=== PATIENT | female | born 1935 | race Caucasian/White ===

== ENCOUNTER 2020-01-15 10:25 | Outpatient (CLI) | payer MEDICARE, OTHER ==
--- NOTE | 2020-01-16 08:54 | Mammography Report ---
BILATERAL DIGITAL SCREENING MAMMOGRAM 3D/2D: 01/15/2020 CLINICAL: Routine screening. Comparison is made to exams dated: 08/22/2018 mammogram - [facility], 08/13 mammogram, 10/31/2017 mammogram, and 11/30/2016 mammogram - [facility]. The tissue of both b reasts is predominantly fatty. There is a focal asymmetry in the right breast central to the nipple middle depth. No other significant masses, calcifications, or other findings are seen in either breast. IMPRESSION: INCOMPLETE: NEEDS ADDITIONAL IMAGING EVALUATION The focal asymmetry in the right breast is indeterminate. Additional views with possible ultrasound are recommended. This exam was interpreted at Station ID: [id number]. NOTE: For mammograms, a report in lay terms will be sent to the patient. Approximately 15% of breast malignancies will not be visualized mammographically. In the management of a palpable breast mass, a negative mammogram must not discourage biopsy of a clinically suspicious lesion. Electronically Signed By: Neah Kam M.D. lk/:01/15/2020 17:00:42 ACR BI-RADS Category 0: Incomplete 3340F PARENCHYMAL PATTERN: (F) - The breast(s) demonstrate(s) diffuse fatty replacement. BI-RADS CATEGORY: (0) - 0 Mammo and [place] [id number] Immediate follow-up LATERALITY: (B)
== END 2020-01-15 10:26 | disposition home or self-care (01) ==
LOC: DI 10:25
DX: Z12.31 Encounter for screening mammogram for malignant neoplasm of breast (principal); R92.8 Other abnormal and inconclusive findings on diagnostic imaging of breast
CPT/HCPCS: 77063; 77067

== ENCOUNTER 2020-03-03 10:01 | Outpatient (CLI) | payer MEDICARE, OTHER ==
--- NOTE | 2020-03-04 12:37 | Mammography Report ---
UNILATERAL RIGHT DIGITAL DIAGNOSTIC MAMMOGRAM 3D/2D: 03/03/2020 CLINICAL: Patient returns today to evaluate a focal asymmetry in the right breast. Comparison is made to exams dated: 01/15/2020 mammogram - [facility], 08/22/2018 mamm ogram - [facility], 08/13/2018 mammogram, 10/31/2017 mammogram, 11/30/2016 ma mmogram, and 11/11/2015 mammogram - [facility]. The tissue of right breast is predominantly fatty. The previously described focal asymmetry in the right breast central to the nipple middle depth is no longer seen in additional views. This is consistent with summation artifact. No other significant masses or calcifications are seen in the breast. IMPRESSION: BENIGN The previously described asymmetry disperses with additional views and is consistent with summation a rtifact. There is no mammographic evidence of malignancy. A 1 year screening mammogram is recommended. Findings and recommendations were conveyed to the patient during today's examination. This exam was interpreted at Station ID: [id number]. NOTE: For mammograms, a report in lay terms will be sent to the patient. Approximately 15% of breast malignancies will not be visualized mammographically. In the management of a palpable breast mass, a negative mammogram must not discourage biopsy of a clinically suspicious lesion. Electronically Signed By: Aayush Schneider M.D. aty/:03/03/2020 11:07:56 ACR BI-RADS Category 2: Benign Finding(s) 3342F PARENCHYMAL PATTERN: (F) - The breast(s) demonstrate(s) diffuse fatty replacement. BI-RADS CATEGORY: (2) - 2 RECOMMENDATION: (ANNUAL) - Recommend routine annual screening mammography. [id number] 1 year screening LATERALITY: (B)
== END 2020-03-03 10:02 | disposition home or self-care (01) ==
LOC: DI 10:01
PROVIDERS: ATTEND Family Medicine
DX: R92.8 Other abnormal and inconclusive findings on diagnostic imaging of breast (principal)

== ENCOUNTER 2020-08-19 08:42 | Outpatient (CLI) | payer MEDICARE, OTHER ==
--- NOTE | 2020-08-19 11:56 | CT Report ---
PROCEDURE: LOWER EXTREMITY WO - RT INDICATIONS: RT HEEL PAIN TECHNIQUE: Noncontrast 3 mm axial sections acquired of the right ankle and foot, with coronal and sagittal refor mats. COMPARISON: None. FINDINGS: Image quality: Excellent. Bones: Mild osteoarthritic changes are noted throughout hindfoot and midfoot joints. Well-defined pl cherelle and dorsal calcaneal enthesophytes are seen. No fracture or dislocation. No suspicious intraoss eous lesion. Subcortical cyst formation versus chronic erosion involving plantar aspect of fourth met atarsal base is seen. Soft tissues: Markedly thickened plantar aponeurosis at its insertion of plantar calcaneus is seen w ith surrounding soft tissue swelling and edema. Achilles tendon is intact. Extensor, flexor, peroneus tendons are grossly intact. No abnormal soft tissue calcifications are seen. IMPRESSION: 1. Thickened plantar fascia near its insertion of plantar calcaneus with well-defined plantar and gary manas calcaneal enthesophytes. Finding is concerning for moderate plantar fasciitis. 2. Achilles tendon is intact. Extensor, flexor, and peroneus tendons are grossly intact. 3. Mild midfoot and hindfoot joint osteoarthritis. No fracture or dislocation. Nonspecific subcortica l cyst formation and plantar aspect of fourth metatarsal base. Erosion secondary to inflammatory arth ropathy cannot be excluded. No significant joint effusion. No abnormal soft tissue calcification. Reviewed by: Jordi Arciniega MD on 08/19/2020 11:54 AM PST Approved by: Jordi Arciniega MD on 08/19/2020 11:54 AM PST Station ID: [id number]
== END 2020-08-19 08:43 | disposition home or self-care (01) ==
LOC: DI 08:42
PROVIDERS: ATTEND Internal Medicine
DX: M77.31 Calcaneal spur, right foot (principal); M19.071 Primary osteoarthritis, right ankle and foot; N64.4 Mastodynia

== ENCOUNTER 2020-08-19 08:43 | Outpatient (CLI) | payer MEDICARE, OTHER ==
--- NOTE | 2020-08-20 09:47 | Mammography Report ---
UNILATERAL LEFT DIGITAL DIAGNOSTIC MAMMOGRAM 3D/2D: 08/19/2020 CLINICAL: Diffuse left breast pain. Comparison is made to exams dated: 03/03/2020 mammogram, 01/15/2020 mammogram - [facility], 08/22/2018 mammogram, 08/22/2018 ultrasound - [facility], 08/13/2018 u ltrasound, and 08/13/2018 mammogram - [facility]. There are scattered fibroglandular elements in l eft breast. No significant masses, calcifications, or other findings are seen in the breast. Specifically, no fi nding to explain the patient's diffuse left breast pain. There is a biopsy clip in the left breast at 2 o'clock in the middle depth. IMPRESSION: NEGATIVE There is no abnormality seen in the left breast to correspond with the pain. There is no mammographic evidence of malignancy. Future imaging is recommended as follows: 01/15/2021 screening mammogram. Findings and recommendations were conveyed to the patient at time of exam. This exam was interpreted at Station ID: [id number]. NOTE: For mammograms, a report in lay terms will be sent to the patient. Approximately 15% of breast malignancies will not be visualized mammographically. In the management of a palpable breast mass, a negative mammogram must not discourage biopsy of a clinically suspicious lesion. Electronically Signed By: Josie dhillon/:08/19/2020 10:12:33 ACR BI-RADS Category 1: Negative 3341F PARENCHYMAL PATTERN: (A) - The breast(s) demonstrate(s) scattered fibroglandular densities. BI-RADS CATEGORY: (1) - 1 Mammogram 20210115 return to screening LATERALITY: (B)
== END 2020-08-19 08:44 | disposition home or self-care (01) ==
LOC: DI 08:43
PROVIDERS: ATTEND Internal Medicine
DX: N64.4 Mastodynia (principal)

== ENCOUNTER 2020-08-30 20:37 | Outpatient (CLI) | payer MEDICARE, OTHER | END 2020-08-30 20:38 | disposition short-term general hospital (02) | LOC: EMS 20:37 | DX: R07.9 Chest pain, unspecified (principal) | CPT/HCPCS: A0425; A0429 ==

== ENCOUNTER 2021-04-24 12:45 | Outpatient (CLI) | payer MEDICARE, OTHER ==
--- NOTE | 2021-04-24 14:47 | Ultrasound Report ---
PROCEDURE: Ext Limited Non Vascular INDICATIONS: LUMP NEAR BICEP TECHNIQUE: Real-time scanning was performed of the , with image documentation. COMPARISON: None. FINDINGS/IMPRESSION: Underlying area of concern within the subcutaneous soft tissues of the right arm is an ovoid avascular echogenic mass within the adjacent fat measuring 1.3 x 0.8 x 1.2 cm. The appea charlene favors a fat containing lesion, likely a lipoma. Reviewed by: Sridhar Burnham DO on 04/24/2021 1:46 PM [place] Approved by: Sridhar Burnham DO on 04/24/2021 1:46 PM [place] Station ID: [id number]
== END 2021-04-24 12:46 | disposition home or self-care (01) ==
LOC: DI 12:45
PROVIDERS: ATTEND Internal Medicine
DX: R22.31 Localized swelling, mass and lump, right upper limb (principal)

== ENCOUNTER 2021-06-01 10:48 | Outpatient (CLI) | payer MEDICARE, OTHER ==
--- NOTE | 2021-06-01 15:02 | XRAY Report ---
PROCEDURE: Humerus RT INDICATIONS: R SHOULDER PX TECHNIQUE: 2 views of the humerus were acquired. COMPARISON: None FINDINGS: Bones: No fractures or dislocations. Moderate acromioclavicular joint and glenohumeral joint osteoa rthritic changes are seen. No suspicious bony lesions. Soft tissues: No suspicious soft tissue calcifications. IMPRESSION: Right shoulder joint osteoarthritis. No right humeral fracture or dislocation. Reviewed by: Jordi Arciniega MD on 06/01/2021 3:01 PM [facility] Approved by: Jordi Arciniega MD on 06/01/2021 3:01 PM PST Station ID: [id number]
--- NOTE | 2021-06-01 15:18 | XRAY Report ---
PROCEDURE: Shoulder 3 View RT INDICATIONS: R SHOULDER PX TECHNIQUE: 3 views of the shoulder were acquired. COMPARISON: None. FINDINGS: No acute fracture. There is severe AC joint degeneration, with intra-articular dystrophic ossificatio n's. Scattered subchondral sclerosis and spurring. Mild glenohumeral joint degeneration. IMPRESSION: Right shoulder joint degeneration. If the patient's pain or other symptoms persist, cons ider further evaluation with MRI. Reviewed by: Lazaro Peck MD on 06/01/2021 3:17 PM PST Approved by: Lazaro Peck MD on 06/01/2021 3:17 PM PST Station ID: [id number]
== END 2021-06-01 23:59 | disposition home or self-care (01) ==
LOC: DI.N 10:48
PROVIDERS: ATTEND Orthopaedic Surgery
DX: M19.011 Primary osteoarthritis, right shoulder (principal)

== ENCOUNTER 2021-08-11 12:17 | Outpatient (CLI) | payer MEDICARE, OTHER ==
--- NOTE | 2021-08-12 08:41 | Mammography Report ---
BILATERAL DIGITAL SCREENING MAMMOGRAM: 08/11/2021 CLINICAL: Routine screening. Comparison is made to exams dated: 08/19/2020 mammogram, 03/03/2020 mammogram, 01/15/2020 mammogram - [facility], 08/22/2018 mammogram, 08/22/2018 ultrasound - [facility], and 08/13/2018 ultrasound - [facility]. There are scattered fibroglandular elements in both breasts. There is a biopsy clip in both breasts. No significant masses, calcifications, or other findings are seen in either breast. There has been no significant interval change. IMPRESSION: NEGATIVE There is no mammographic evidence of malignancy. A 1 year screening mammogram is recommended. This exam was interpreted at Station ID: [id number]. NOTE: For mammograms, a report in lay terms will be sent to the patient. Approximately 15% of breast malignancies will not be visualized mammographically. In the management of a palpable breast mass, a negative mammogram must not discourage biopsy of a clinically suspicious lesion. Electronically Signed By: Giacomo Hickman acr/penrad:08/11/2021 15:37:23 ACR BI-RADS Category 1: Negative 3341F PARENCHYMAL PATTERN: (A) - The breast(s) demonstrate(s) scattered fibroglandular densities. BI-RADS CATEGORY: (1) - 1 RECOMMENDATION: (ANNUAL) - Recommend routine annual screening mammography. [id number] 1 year screening LATERALITY: (B)
== END 2021-08-11 12:18 | disposition home or self-care (01) ==
LOC: DI.N 12:17
PROVIDERS: ATTEND Internal Medicine
DX: Z12.31 Encounter for screening mammogram for malignant neoplasm of breast (principal)

== ENCOUNTER 2021-12-27 15:49 | Outpatient (CLI) | payer MEDICARE, OTHER ==
[2021-12-27 15:59] LABS: BASOPHILS % (AUTO) 0.5 %; EOSINOPHILS # (AUTO) 0.1 10^3/uL (0.0-0.7); EOSINOPHILS % (AUTO) 2.3 %; HCT - HEMATOCRIT 43.4 % (37.0-47.0); HGB - HEMOGLOBIN 14.4 g/dL (12.0-16.0); LYMPHOCYTES # (AUTO) 2.5 10^3/uL (1.5-3.5); LYMPHOCYTES % (AUTO) 43.4 %; MEAN CORPUSCULAR HEMOGLOBIN 29.2 pg (27.0-31.0); MEAN CORPUSCULAR HGB CONC 33.2 g/dL (32.0-36.0); MEAN PLATELET VOLUME 10.1 fL (7.9-10.8); MONOCYTES # (AUTO) 0.3 10^3/uL (0.0-1.0); MONOCYTES % (AUTO) 5.9 %; NEUTROPHILS # (AUTO) 2.7 10^3/uL (1.5-6.6); NEUTROPHILS % (AUTO) 47.7 %; PLT - PLATELET COUNT 170 10^3/uL (130-450); RED BLOOD COUNT 4.93 10^6/uL (4.20-5.40); RED CELL DISTRIBUTION WIDTH 12.1 % (12.0-15.0); WHITE BLOOD COUNT 5.7 x10^3/uL (4.8-10.8)
[2021-12-27 16:13] LABS: ALBUMIN/GLOBULIN RATIO 1.2 (1.0-2.2); ALKALINE PHOSPHATASE 69 IU/L (42-121); ALT ALANINE AMINOTRANSFERASE 27 IU/L (10-60); AST ASPARTATE AMINOTRANSFERASE 30 IU/L (10-42); BILIRUBIN,TOTAL 0.9 mg/dL (0.2-1.0); BUN - BLOOD UREA NITROGEN 20 mg/dL (6-20); CALCIUM 9.2 mg/dL (8.5-10.3); CARBON DIOXIDE - CO2 31 mmol/L (21-32); CHLORIDE 98 mmol/L (101-111); CHOL/HDL RATIO 3.6 (<4.4); CHOLESTEROL 213 mg/dL; CK- CREATINE KINASE 72 IU/L (22-269); CREATININE 0.8 mg/dL (0.4-1.0); GFR - MDRD 68 (>89); GLUCOSE 102 mg/dL (70-100); HDL CHOLESTEROL 60 mg/dL; LDL CHOLESTEROL,CALCULATED 134 mg/dL; LDL/HDL RATIO 2.2 (<4.4); POTASSIUM 3.4 mmol/L (3.5-5.0); SODIUM 139 mmol/L (135-145); TOTAL PROTEIN 7.4 g/dL (6.7-8.2); TRIGLYCERIDES 93 mg/dL; VLDL CHOLESTEROL 19 mg/dL
[2021-12-27 16:25] LABS: THYROID STIMULATING HORMONE 1.73 uIU/mL (0.34-5.60)
== END 2021-12-27 15:50 | disposition home or self-care (01) ==
LOC: LAB.R 15:49
PROVIDERS: ATTEND Internal Medicine
DX: Z00.00 Encounter for general adult medical examination without abnormal findings (principal); E78.5 Hyperlipidemia, unspecified; M19.90 Unspecified osteoarthritis, unspecified site; Z79.899 Other long term (current) drug therapy; R41.3 Other amnesia
CPT/HCPCS: 80053; 80061; 82550; 82607; 83721; 84443; 85025

== ENCOUNTER 2022-01-18 08:00 | Outpatient (CLI) | payer MEDICARE, OTHER ==
--- NOTE | 2022-01-18 16:28 | XRAY Report ---
PROCEDURE: Ankle 3 View RT INDICATIONS: ANKLE PX TECHNIQUE: 3 views of the ankle were acquired. COMPARISON: Right ankle radiographs 01/13/2022 FINDINGS: Bones: No acute fractures or dislocations. Ankle mortise is normally aligned. No suspicious bony l esions. Prominent posterior calcaneal enthesophyte. Soft tissues: Mild soft tissue edema seen surrounding the ankle. IMPRESSION: No acute osseous abnormality. If symptoms persist or there is continued clinical concern , further evaluation with MRI or CT may be helpful. Reviewed by: Jorgito Pickens MD on 01/18/2022 4:27 PM PDT Approved by: Jorgito Pickens MD on 01/18/2022 4:27 PM PDT Station ID: [id number]
--- NOTE | 2022-01-18 17:29 | XRAY Report ---
PROCEDURE: Lumbar Spine 2 View INDICATIONS: BACK PAIN TECHNIQUE: 2 views of the lumbar spine were acquired. COMPARISON: None. FINDINGS: Bones: 5 [id number] vertebrae are present. There is trace retrolisthesis of L1 on L2. Multilev el moderate to severe disc space narrowing most severe at L4-5 and L5-S1. Severe foraminal narrowing is noted L1-L2, L5-S1, moderate to severe L4-5. Anterior bridging osteophytes are present at T12-L1, T11-12. No vertebral body compression fractures. No suspicious bony lesions. Soft tissues: Overlying bowel gas pattern is normal. No suspicious soft tissue calcifications. 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 Reviewed by: Darshana Gutierrez MD on 01/18/2022 5:28 PM PDT Approved by: Darshana Gutierrez MD on 01/18/2022 5:28 PM PDT Station ID: [id number]
== END 2022-01-18 23:59 | disposition home or self-care (01) ==
LOC: DI.WOS 08:00
PROVIDERS: ATTEND Physician Assistant Surgical
DX: M25.571 Pain in right ankle and joints of right foot (principal); M43.16 Spondylolisthesis, lumbar region; M47.816 Spondylosis without myelopathy or radiculopathy, lumbar region; M47.817 Spondylosis without myelopathy or radiculopathy, lumbosacral region; M48.061 Spinal stenosis, lumbar region without neurogenic claudication; M48.07 Spinal stenosis, lumbosacral region

== ENCOUNTER 2022-04-01 13:19 | Outpatient (CLI) | payer MEDICARE, OTHER | END 2022-04-01 13:20 | disposition critical access hospital (66) | LOC: EMS 13:19 | DX: R41.0 Disorientation, unspecified (principal); R45.1 Restlessness and agitation | CPT/HCPCS: A0425; A0429 ==

== ENCOUNTER 2022-04-01 13:53 | Emergency (ER) | payer MEDICARE, OTHER ==
[2022-04-01] MEDS ORDERED: SODIUM CHLORIDE 0.9% 1,000 ML IV STA (13:56)
--- NOTE | 2022-04-01 13:58 | ED Physician Documentation ---
PD HPI ALTERED MENTAL STATUS - Stated complaint Stated Complaint: AMS - History obtained from History obtained from: Patient, EMS - Additional information Additional information: This is an 86-year-old woman who presents by ambulance. She lives at home with family and she has dementia. She was seen at [facility] yesterday for increased back back pain and prescribed baclofen and now she is more confused than usual. She has no specific complaints. History is from the patient and EMS. Family is not present at bedside during initial evaluation but I am led to believe they are close behind. Review of Systems Unable to obtain: Dementia PD PAST MEDICAL HISTORY - Present Medications Home Medications: Ambulatory Orders Medication Instructions Recorded Confirmed hydrOXYzine PAMOATE [Vistaril] 25 mg PO Q6H PRN #20 cap 04/01/22 - Allergies Allergies/Adverse Reactions: Allergies Allergy/AdvReac Type Severity Reaction Status Date / Time Unable to Assess Allergy Verified 04/01/22 13:58 PD ED PE NORMAL - Vitals Vital signs reviewed: Yes - General General: Other (She is alert and oriented to person and place but not time or events. She does not remember going to the hospital yesterday. She is unable to name the date. When I ask her who the president is she is unable to name the president but states "I remember I do not like him.") - HEENT HEENT: PERRL, EOMI - Neck Neck: Supple, no meningeal sign, No bony TTP - Cardiac Cardiac: RRR, No murmur - Respiratory Respiratory: No respiratory distress, Clear bilaterally - Abdomen Abdomen: Normal bowel sounds, Soft, Non tender - Back Back: No CVA TTP, No spinal TTP - Derm Derm: Normal color, Warm and dry - Extremities Extremities: No edema, No calf tenderness / cord - Neuro Eye Opening: Spontaneous Motor: Obeys Commands Verbal: Confused GCS Score: 14 Results - Vitals Vitals: Vital Signs - 24 hr 04/01/22 13:58 Temperature 36.5 C Heart Rate 73 Respiratory 16 Rate Blood Pressure 122/63 O2 Saturation 100 Oxygen O2 Source Room air - Labs Labs: Laboratory Tests 04/01/22 04/01/22 14:05 14:05 WBC 5.7 RBC 3.65 L Hgb 10.9 L Hct 31.8 L MCV 87.1 MCH 29.9 MCHC 34.3 RDW 11.9 L Plt Count 240 MPV 8.9 Neut # (Auto) 3.1 Lymph # (Auto) 2.0 [place] # (Auto) 0.5 Eos # (Auto) 0.2 Baso # (Auto) 0.0 Absolute Nucleated RBC 0.00 Nucleated RBC % 0.0 Sodium 141 Potassium 4.2 Chloride 102 Carbon Dioxide 28 Anion Gap 11.0 BUN 11 Creatinine 0.8 Estimated GFR (MDRD) 68 L Glucose 115 H Calcium 9.3 Total Bilirubin 0.8 AST 55 H ALT 62 H Alkaline Phosphatase 80 Total Protein 6.7 Albumin 3.3 Globulin 3.4 Albumin/Globulin Ratio 1.0 PD MEDICAL DECISION MAKING - ED course ED course: Daughter arrived at the bedside. States that after starting baclofen yesterday she really is a lot worse than usual mental status champagne. Otherwise she notes that she had back surgery about a week and a half ago and was recovering very well. Per the daughter she was seen at [facility] yesterday for some increased pain, thorough work-up was undertaken including CT of the low spine, duplex ultrasound of the legs, and blood work, all negative. 86-year-old woman with underlying dementia presents with delirium temporally related to starting baclofen. The half-life of this medication is 5 and half hours and she was hydrated here and observed for several hours with near resolution of her mental status and her daughter was happy to take her home. They did need a refill for the hydroxyzine for itching, that had not been causing any delirium issues. Departure - Departure Disposition: 01 Home, Self Care Clinical Impression: Delirium superimposed on dementia Condition: Good Record reviewed to determine appropriate education?: Yes Instructions: ED Dementia Caregiver Support Prescriptions: hydrOXYzine PAMOATE [Vistaril] 25 mg PO Q6H PRN #20 cap PRN Reason: Itching Comments: I sent your prescription electronically to [facility] in [place]. Call your doctor to arrange a follow-up appointment, make the next available appointment. In the interim, return anytime if worse or if new symptoms develop.
--- OUTSIDE RECORDS SUMMARY | 2022-04-01 13:59 | EXTERNAL MEDICAL SUMMARY RPT | Continuity of Care Document ---
:1935 Author Organization [facility] Address [address] [place] [address] Phone Allergies and Intolerances date description facility type (no date) No Known Drug Allergies [facility] (unkn own) Encounters No information. Functional Status No information. Immunizations No information. Medications No information. Problems No information. Procedures No information. Results/Labs test date author facility value unit interpret ation Result panel 1 (unknown) (no (unknown) (unknown) (no value) (units (unk nown) date) unknown) (unknown) (no (unknown) (unknown) [address] [place] [address] (units (unknown) date) unknown) (unknown) (no (unknown) (unknown) [place], [place] (units ( unknown) date) [id number] unknown) (unknown) (no (unknown) (unknown) [facility] (units (unknown) date) unknown) (unknown) (no (unknown) (unknown) Magnetic (units (unkno wn) date) Resonance Report unknown) (unknown) (no (unknown) (unknown) Signed (units (unkno wn) date) unknown) (unknown) (no (unknown) (unknown) (no value) (units (unk nown) date) unknown) (unknown) (no (unknown) (unknown) 02/06/22 (units (unkno wn) date) unknown) (unknown) (no (unknown) (unknown) 1. 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 (unknown) (no (unknown) (unknown) 2. Canal stenosis (units (unknown) date) is moderate to unknown) severe at L2-L3, moderate to severe at L3-L4, (unknown) (no (unknown) (unknown) 3. Multilevel (units ( unknown) date) foraminal unknown) narrowing as described above. (unknown) (no (unknown) (unknown) Alignment and (units ( unknown) date) Curvature: Trace unknown) degenerative anterolisthesis of L3 on L4. (unknown) (no (unknown) (unknown) Approved by: (units (u nknown) date) Norberto Hdz, unknown) Del on 02/06/2022 at 15:28 (unknown) (no (unknown) (unknown) Bone Marrow: (units (u nknown) date) Marrow is of unknown) normal overall signal. No acute vertebral body (unknown) (no (unknown) (unknown) COMPARISON: [facility] (units (unknown) date) Outside Film, CR, unknown) XR LUMBAR SPINE 2 OR 3 VIEWS, 01/18/2022, (unknown) (no (unknown) (unknown) Dictated by: (units (u nknown) date) Norberto Hdz, unknown) Del on 02/06/2022 at 15:22 (unknown) (no (unknown) (unknown) FINDINGS: (units (unkn own) date) unknown) (unknown) (no (unknown) (unknown) IMPRESSION: (units (un known) date) unknown) (unknown) (no (unknown) (unknown) INDICATIONS: (units (u nknown) date) Spinal stenosis, unknown) lumbar region (unknown) (no (unknown) (unknown) Image quality: (units (unknown) date) Excellent. unknown) (unknown) (no (unknown) (unknown) L1-L2: Disc (units (un known) date) bulge. Facet unknown) hypertrophy. No canal stenosis. Mild bilateral (unknown) (no (unknown) (unknown) L2-L3: Disc (units (un known) date) bulge. Facet and unknown) ligament hypertrophy. Moderate to severe canal (unknown) (no (unknown) (unknown) L3-L4: Disc (units (un known) date) bulge. Facet and unknown) ligament hypertrophy. Moderate to severe canal (unknown) (no (unknown) (unknown) L4-L5: High-grade (units (unknown) date) canal stenosis unknown) secondary to disc bulge, mild anterolisthesis (unknown) (no (unknown) (unknown) L5, and exuberant (units (unknown) date) facet and ligament unknown) hypertrophy. Moderate bilateral foraminal (unknown) (no (unknown) (unknown) L5-S1: (units (unkno wn) date) Retrolisthesis of unknown) L5 on S1. Disc degeneration and diffuse disc bulge. (unknown) (no (unknown) (unknown) Mild right (units (unk nown) date) foraminal unknown) narrowing. Moderate left foraminal narrowing with (unknown) (no (unknown) (unknown) Moderate (units (unkno wn) date) bilateral unknown) foraminal stenosis with mild flattening deformity on the (unknown) (no (unknown) (unknown) Noncontrast (units (un known) date) sagittal T1 spin unknown) echo and T2 fast echo, sagittal STIR, and T2 fast (unknown) (no (unknown) (unknown) Paraspinous Soft (units (unknown) date) Tissues: No unknown) paravertebral masses. (unknown) (no (unknown) (unknown) Spinal Cord: (units (u nknown) date) Conus medullaris unknown) terminates at the L1-L2 level. Visualized cord (unknown) (no (unknown) (unknown) T12-L1: No canal (units (unknown) date) stenosis or unknown) foraminal stenosis. (unknown) (no (unknown) (unknown) TECHNIQUE: (units (unk nown) date) unknown) (unknown) (no (unknown) (unknown) at L4-L5, and (units ( unknown) date) moderate at L5-S1. unknown) (unknown) (no (unknown) (unknown) bilateral L2 (units (u nknown) date) nerve roots. unknown) (unknown) (no (unknown) (unknown) deformity on the (units (unknown) date) exiting left L3 unknown) nerve root. (unknown) (no (unknown) (unknown) degenerative (units (u nknown) date) anterolisthesis of unknown) L4 on L5. Mild retrolisthesis of L5 on S1 (unknown) (no (unknown) (unknown) demonstrates (units (u nknown) date) normal signal and unknown) size. (unknown) (no (unknown) (unknown) fractures. (units (unk nown) date) unknown) (unknown) (no (unknown) (unknown) hypertrophy. (units (u nknown) date) Moderate canal unknown) stenosis. Moderate to severe bilateral foraminal (unknown) (no (unknown) (unknown) may be performed. (units (unknown) date) unknown) (unknown) (no (unknown) (unknown) mm. (units (unkno wn) date) unknown) (unknown) (no (unknown) (unknown) stenosis. (units (unkn own) date) unknown) (unknown) (no (unknown) (unknown) through the (units (un known) date) lumbar spine. In unknown) cases with scoliosis, additional coronal T2 fast (unknown) (no (unknown) (unknown) with a degree of (units (unknown) date) bilateral L5 nerve unknown) root impingement. (unknown) (no (unknown) (unknown) with flattening (units (unknown) date) deformity on the unknown) exiting bilateral L4 nerve roots. (unknown) (no (unknown) (unknown) [id number] (units (unkno wn) date) unknown) (unknown) (no (unknown) (unknown) 15:50. (units (unkno wn) date) unknown) (unknown) (no (unknown) (unknown) Accession Number: (units (unknown) date) [id number] unknown) (unknown) (no (unknown) (unknown) Age/Sex: 86 / F (units (unknown) date) Date of Service: unknown) (unknown) (no (unknown) (unknown) : 1935 (units (unknown) date) Acct:[id number] unknown) (unknown) (no (unknown) (unknown) Facet (units (unkno wn) date) unknown) (unknown) (no (unknown) (unknown) Loc: MRI (units (unkno wn) date) unknown) (unknown) (no (unknown) (unknown) Ordering (units (unkno wn) date) Provider: Matilde Alston unknown) (unknown) (no (unknown) (unknown) PROCEDURE: MR (units ( unknown) date) LUMBAR SPINE WO unknown) CON (unknown) (no (unknown) (unknown) Patient: (units (unkno wn) date) Tonja Connolly A unknown) MR#: [id number] (unknown) (no (unknown) (unknown) Procedure: MR (units ( unknown) date) lumbar spine wo unknown) con (unknown) (no (unknown) (unknown) Trace (units (unkno wn) date) unknown) (unknown) (no (unknown) (unknown) compression (units (un known) date) unknown) (unknown) (no (unknown) (unknown) exiting (units (unkno wn) date) unknown) (unknown) (no (unknown) (unknown) flattening (units (unk nown) date) unknown) (unknown) (no (unknown) (unknown) foraminal (units (unkn own) date) unknown) (unknown) (no (unknown) (unknown) high-grade (units (unk nown) date) unknown) (unknown) (no (unknown) (unknown) measuring 6 (units (un known) date) unknown) (unknown) (no (unknown) (unknown) narrowing (units (unkn own) date) unknown) (unknown) (no (unknown) (unknown) of L4 on (units (unkno wn) date) unknown) (unknown) (no (unknown) (unknown) spin echo (units (unkn own) date) unknown) (unknown) (no (unknown) (unknown) stenosis. (units (unkn own) date) unknown) Result panel 2 (unknown) (no (unknown) (unknown) (no value) (units (unk nown) date) unknown) (unknown) (no (unknown) (unknown) [address] [place] [address] (units (unknown) date) unknown) (unknown) (no (unknown) (unknown) [place], [place] (units ( unknown) date) [id number] unknown) (unknown) (no (unknown) (unknown) CT Scan Report (units (unknown) date) unknown) (unknown) (no (unknown) (unknown) [facility] (units (unknown) date) unknown) (unknown) (no (unknown) (unknown) Signed (units (unkno wn) date) unknown) (unknown) (no (unknown) (unknown) (no value) (units (unk nown) date) unknown) (unknown) (no (unknown) (unknown) 03/02/22 (units (unkno wn) date) unknown) (unknown) (no (unknown) (unknown) Above. Above. (units ( unknown) date) unknown) (unknown) (no (unknown) (unknown) Anterolisthesis (units (unknown) date) of L4 on L5 unknown) measuring 4 mm. Retrolisthesis of L5 on S1 (unknown) (no (unknown) (unknown) Approved by: (units (u nknown) date) Delfnio Simon M.D. unknown) on 03/02/2022 at 15:40 (unknown) (no (unknown) (unknown) COMPARISON: (units (un known) date) 02/06/2022 MRI unknown) lumbar spine (unknown) (no (unknown) (unknown) Dictated by: (units (u nknown) date) Delfino Simon M.D. unknown) on 03/02/2022 at 15:34 (unknown) (no (unknown) (unknown) Disc height loss (units (unknown) date) with degenerative unknown) endplate change and vacuum disc phenomenon (unknown) (no (unknown) (unknown) FINDINGS: (units (unkn own) date) unknown) (unknown) (no (unknown) (unknown) IMPRESSION: (units (un known) date) Severe unknown) degenerative changes as detailed above. (unknown) (no (unknown) (unknown) INDICATIONS: (units (u nknown) date) Spinal stenosis, unknown) lumbar region (unknown) (no (unknown) (unknown) L1-L2: Diffuse (units (unknown) date) disc bulge with a unknown) superimposed broad-based posterior disc (unknown) (no (unknown) (unknown) L2-L3: Diffuse (units (unknown) date) disc bulge and a unknown) superimposed broad-based posterior disc (unknown) (no (unknown) (unknown) L3-L4: Diffuse (units (unknown) date) disc bulge and a unknown) superimposed broad-based posterior disc (unknown) (no (unknown) (unknown) L4-L5: Severe (units ( unknown) date) spinal canal unknown) stenosis and bilateral neural foraminal stenosis as (unknown) (no (unknown) (unknown) L5-S1: Severe (units ( unknown) date) subarticular zone unknown) stenosis bilaterally. Prominent calcified (unknown) (no (unknown) (unknown) Noncontrast 3 mm (units (unknown) date) thick sections unknown) acquired from the T12 level to the sacrum. (unknown) (no (unknown) (unknown) Otherwise normal (units (unknown) date) alignment. unknown) Vertebral body heights maintained. No suspicious (unknown) (no (unknown) (unknown) T12-L1: No spinal (units (unknown) date) canal or neural unknown) foraminal stenosis. (unknown) (no (unknown) (unknown) TECHNIQUE: (units (unk nown) date) unknown) (unknown) (no (unknown) (unknown) and prominent (units ( unknown) date) osteophytes unknown) contribute significantly to the spinal canal and (unknown) (no (unknown) (unknown) annulus fibrosis (units (unknown) date) in the paracentral unknown) and subarticular zones. Foraminal (unknown) (no (unknown) (unknown) blastic osseous (units (unknown) date) lesion. unknown) (unknown) (no (unknown) (unknown) buckling of the (units (unknown) date) ligamentum flavum unknown) to produce moderate spinal canal stenosis. (unknown) (no (unknown) (unknown) combine with (units (u nknown) date) posterior unknown) osteophytic ridging of the endplates and facet (unknown) (no (unknown) (unknown) combines with (units ( unknown) date) buckling of the unknown) ligamentum flavum and bulky facet hypertrophy to (unknown) (no (unknown) (unknown) comparison MRI. (units (unknown) date) Bulky facet unknown) hypertrophy with calcified buckling of the (unknown) (no (unknown) (unknown) coronal reformats (units (unknown) date) were constructed. unknown) For radiation dose reduction, the (unknown) (no (unknown) (unknown) disc bulge (units (unk nown) date) combine with facet unknown) hypertrophy to produce mild neural foraminal (unknown) (no (unknown) (unknown) disc material (units ( unknown) date) which blends with unknown) posterior osteophytic ridging of the inferior (unknown) (no (unknown) (unknown) endplate. Severe (units (unknown) date) bilateral neural unknown) foraminal stenosis with flattening of the (unknown) (no (unknown) (unknown) factors combine (units (unknown) date) to produce unknown) moderate bilateral neural foraminal narrowing also. (unknown) (no (unknown) (unknown) flattens and (units (u nknown) date) indents the unknown) ventral thecal sac. There is partial calcification of (unknown) (no (unknown) (unknown) foraminal (units (unkn own) date) stenosis. unknown) (unknown) (no (unknown) (unknown) hypertrophy. (units (u nknown) date) unknown) (unknown) (no (unknown) (unknown) level of the (units (u nknown) date) lumbar spine. Unc unknown) facet hypertrophy to varying degrees is present (unknown) (no (unknown) (unknown) level. There is (units (unknown) date) squaring and close unknown) approximation of the spinous processes from (unknown) (no (unknown) (unknown) nerve roots. (units (u nknown) date) unknown) (unknown) (no (unknown) (unknown) neural foraminal (units (unknown) date) stenosis due to unknown) foraminal components of the disc bulge and (unknown) (no (unknown) (unknown) normal. (units (unkno wn) date) unknown) (unknown) (no (unknown) (unknown) projecting (units (unk nown) date) medially from the unknown) medial margin of the right L3-L4 facet. Moderate (unknown) (no (unknown) (unknown) severe spinal (units ( unknown) date) canal stenosis and unknown) subarticular zone narrowing. Prominent (unknown) (no (unknown) (unknown) through L5-S1 (units ( unknown) date) with appearance unknown) suggestive of Bastrupp's physiology. Regional (unknown) (no (unknown) (unknown) used: automated (units (unknown) date) exposure control. unknown) (unknown) (no (unknown) (unknown) [id number] (units (o wn) date) unknown) (unknown) (no (unknown) (unknown) Accession Number: (units (unknown) date) [id number] unknown) (unknown) (no (unknown) (unknown) Age/Sex: 86 / F (units (unknown) date) Date of Service: unknown) (unknown) (no (unknown) (unknown) : 1935 (units (unknown) date) Acct:[id number] unknown) (unknown) (no (unknown) (unknown) L2-L3 (units (unkno wn) date) unknown) (unknown) (no (unknown) (unknown) L5 (units (unkno wn) date) unknown) (unknown) (no (unknown) (unknown) Loc: CT (units (o wn) date) unknown) (unknown) (no (unknown) (unknown) Ordering (units (unkno wn) date) Provider: Matilde Alston unknown) (unknown) (no (unknown) (unknown) PROCEDURE: CT (units ( unknown) date) LUMBAR SPINE WO unknown) CON (unknown) (no (unknown) (unknown) Patient: (units (unkno wn) date) Tonja Connolly A unknown) MR#: [id number] (unknown) (no (unknown) (unknown) Procedure: CT (units ( unknown) date) lumbar spine wo unknown) con (unknown) (no (unknown) (unknown) Sagittal and (units (u nknown) date) unknown) (unknown) (no (unknown) (unknown) These (units (unkno wn) date) unknown) (unknown) (no (unknown) (unknown) at each (units (unkno wn) date) unknown) (unknown) (no (unknown) (unknown) at every (units (unkno wn) date) unknown) (unknown) (no (unknown) (unknown) bilateral (units (unkn own) date) unknown) (unknown) (no (unknown) (unknown) components of the (units (unknown) date) unknown) (unknown) (no (unknown) (unknown) exiting L5 (units (unk nown) date) unknown) (unknown) (no (unknown) (unknown) facet (units (unkno wn) date) unknown) (unknown) (no (unknown) (unknown) following was (units ( unknown) date) unknown) (unknown) (no (unknown) (unknown) hypertrophy and (units (unknown) date) unknown) (unknown) (no (unknown) (unknown) ligamentum flavum (units (unknown) date) unknown) (unknown) (no (unknown) (unknown) lytic or (units (unkno wn) date) unknown) (unknown) (no (unknown) (unknown) measuring 3 mm. (units (unknown) date) unknown) (unknown) (no (unknown) (unknown) narrowing (units (unkn own) date) unknown) (unknown) (no (unknown) (unknown) neural (units (unkno wn) date) unknown) (unknown) (no (unknown) (unknown) osteophytes (units (un known) date) unknown) (unknown) (no (unknown) (unknown) posterior (units (unkn own) date) unknown) (unknown) (no (unknown) (unknown) produce (units (unkno wn) date) unknown) (unknown) (no (unknown) (unknown) protrusion (units (unk nown) date) unknown) (unknown) (no (unknown) (unknown) seen on (units (unkno wn) date) unknown) (unknown) (no (unknown) (unknown) soft tissues (units (u nknown) date) unknown) (unknown) (no (unknown) (unknown) the (units (unkno wn) date) unknown) Result panel 3 (unknown) (no date) (unknown) (unknown) 0 /uL (unkn own) (unknown) (no date) (unknown) (unknown) 0.8 % (unkn own) (unknown) (no date) (unknown) (unknown) 100 /uL (unkn own) (unknown) (no date) (unknown) (unknown) 12.7 g/dL (unkn own) (unknown) (no date) (unknown) (unknown) 13.6 % (unkn own) (unknown) (no date) (unknown) (unknown) 182 X10 3/uL (unkn own) (unknown) (no date) (unknown) (unknown) 2.8 % (unkn own) (unknown) (no date) (unknown) (unknown) 2300 /uL (unkn own) (unknown) (no date) (unknown) (unknown) 2400 /uL (unkn own) (unknown) (no date) (unknown) (unknown) 29.9 PG (unkn own) (unknown) (no date) (unknown) (unknown) 300 /uL (unkn own) (unknown) (no date) (unknown) (unknown) 34.8 % (unkn own) (unknown) (no date) (unknown) (unknown) 36.5 % (unkn own) (unknown) (no date) (unknown) (unknown) 4.24 X10 6/uL (unkn own) (unknown) (no date) (unknown) (unknown) 43.3 % (unkn own) (unknown) (no date) (unknown) (unknown) 46.8 % (unkn own) (unknown) (no date) (unknown) (unknown) 5.2 X10 3/uL (unkn own) (unknown) (no date) (unknown) (unknown) 6.3 % (unkn own) (unknown) (no date) (unknown) (unknown) 86.0 fL (unkn own) Result panel 4 (unknown) (no date) (unknown) (unknown) > 60 mL/min (unkn own) (unknown) (no date) (unknown) (unknown) 0.80 mg/dL (unkn own) (unknown) (no date) (unknown) (unknown) 104 mmol/L (unkn own) (unknown) (no date) (unknown) (unknown) 141 mmol/L (unkn own) (unknown) (no date) (unknown) (unknown) 23 mg/dL (unkn own) (unknown) (no date) (unknown) (unknown) 28.8 (units unknown) (unknown) (unknown) (no date) (unknown) (unknown) 33 mmol/L (unkn own) (unknown) (no date) (unknown) (unknown) 4.3 mmol/L (unkn own) (unknown) (no date) (unknown) (unknown) 78 mg/dL (unkn own) (unknown) (no date) (unknown) (unknown) 9.3 mg/dL (unkn own) Result panel 5 (unknown) (no date) (unknown) (unknown) Negative (units (unkn own) unknown) (unknown) (no date) (unknown) (unknown) Negative (units (unkn own) unknown) Result panel 6 (unknown) (no (unknown) (unknown) (no value) (units (unk nown) date) unknown) (unknown) (no (unknown) (unknown) [id number] (units (unkno wn) date) unknown) (unknown) (no (unknown) (unknown) 03/23/22 1035 (units ( unknown) date) unknown) (unknown) (no (unknown) (unknown) Age/Sex: 86 / F (units (unknown) date) unknown) (unknown) (no (unknown) (unknown) COVID-19 status: (units (unknown) date) Negative unknown) (unknown) (no (unknown) (unknown) COVID-19 (units (unkno wn) date) unknown) (unknown) (no (unknown) (unknown) Changes to H+P: (units (unknown) date) No unknown) (unknown) (no (unknown) (unknown) Criteria for (units (u nknown) date) continued unknown) procedure: Expected advancement of disease process, (unknown) (no (unknown) (unknown) : 1935 (units (unknown) date) Acct:[id number] unknown) (unknown) (no (unknown) (unknown) Date of Service: (units (unknown) date) 03/23/22 unknown) (unknown) (no (unknown) (unknown) Deterioration of (units (unknown) date) the patient's unknown) condition or overall health and Delay expected to (unknown) (no (unknown) (unknown) History + (units (unkn own) date) Physical unknown) reviewed/Exam performed by Physician: Yes (unknown) (no (unknown) (unknown) Interval Note (units ( unknown) date) unknown) (unknown) (no (unknown) (unknown) [facility] (units (unknown) date) [address] [place] [address] unknown) [place] [address] (unknown) (no (unknown) (unknown) Patient: (units (unkno wn) date) Tonja Connolly unknown) MR#: [id number] (unknown) (no (unknown) (unknown) Possibility delay (units (unknown) date) results in more unknown) complex future surgery or treatment, Increased (unknown) (no (unknown) (unknown) Pre-operative (units ( unknown) date) Note unknown) (unknown) (no (unknown) (unknown) Provider: (units (unkn own) date) Matilde Alston MD unknown) (unknown) (no (unknown) (unknown) Result date/Date (units (unknown) date) tested (Pos, unknown) Neg/Pending): 03/22/22 (unknown) (no (unknown) (unknown) Signed (units (unkno wn) date) By:<Electronicall unknown) y signed by Matilde Alston MD> (unknown) (no (unknown) (unknown) loss of (units (unkno wn) date) function, unknown) Continuing or worsening of significant or severe pain, (unknown) (no (unknown) (unknown) result in (units (unkn own) date) less-positive unknown) ultimate med/surg outcome Result panel 7 (unknown) (no (unknown) (unknown) (no value) (units (unk nown) date) unknown) (unknown) (no (unknown) (unknown) [id number] (units (unkno wn) date) unknown) (unknown) (no (unknown) (unknown) 03/23/22 (units (unkno wn) date) unknown) (unknown) (no (unknown) (unknown) [address] (units (unkn own) date) [address] unknown) (unknown) (no (unknown) (unknown) Accession (units (unkn own) date) Number: unknown) [id number] (unknown) (no (unknown) (unknown) Age/Sex: 86 / F (units (unknown) date) Date of Service: unknown) (unknown) (no (unknown) (unknown) [place], [place] (units ( unknown) date) [id number] unknown) (unknown) (no (unknown) (unknown) Approved by: (units (u nknown) date) Robert muller) Del Flynn on 03/23/2022 at 16:09 (unknown) (no (unknown) (unknown) Bones: 2 spot (units ( unknown) date) fluoroscopic unknown) films of the lumbar spine were performed for a (unknown) (no (unknown) (unknown) COMPARISON: (units (un known) date) None. unknown) (unknown) (no (unknown) (unknown) : 1935 (units (unknown) date) Acct:[id number] unknown) (unknown) (no (unknown) (unknown) Dictated by: (units (u nknown) date) Robert Peterson unknown) Del Flynn on 03/23/2022 at 16:07 (unknown) (no (unknown) (unknown) FINDINGS: (units (unkn own) date) unknown) (unknown) (no (unknown) (unknown) IMPRESSION: (units (un known) date) Fluoroscopic unknown) images obtained for the posterior spinal fusion L4 (unknown) (no (unknown) (unknown) INDICATIONS: (units (u nknown) date) L4-5 L5-S1 unknown) (unknown) (no (unknown) (unknown) [facility] (units (unknown) date) unknown) (unknown) (no (unknown) (unknown) Loc: AC 218-1 (units ( unknown) date) unknown) (unknown) (no (unknown) (unknown) Ordering (units (unkno wn) date) Provider: unknown) Matilde Alston MD (unknown) (no (unknown) (unknown) PROCEDURE: XR (units ( unknown) date) LUMBAR SPINE unknown) 2-3V (unknown) (no (unknown) (unknown) Patient: (units (unkno wn) date) Tonja Connolly unknown) MR#: [id number] (unknown) (no (unknown) (unknown) Procedure: XR (units ( unknown) date) lumbar spine unknown) 2-3V (unknown) (no (unknown) (unknown) Signed (units (unkno wn) date) unknown) (unknown) (no (unknown) (unknown) TECHNIQUE: 2 (units (u nknown) date) spot unknown) fluoroscopic views of the lumbar spine were acquired. (unknown) (no (unknown) (unknown) XRay Report (units (un known) date) unknown) (unknown) (no (unknown) (unknown) note. (units (unkno wn) date) unknown) (unknown) (no (unknown) (unknown) posterior (units (unkn own) date) unknown) (unknown) (no (unknown) (unknown) spinal fusion (units ( unknown) date) L4 through S1. unknown) For detailed report please see the surgeon's (unknown) (no (unknown) (unknown) through S1. (units (un known) date) unknown) Result panel 8 (unknown) (no (unknown) (unknown) (no value) (units (unk nown) date) unknown) (unknown) (no (unknown) (unknown) [id number] (units (unkno wn) date) unknown) (unknown) (no (unknown) (unknown) 03/23/22 1542 (units ( unknown) date) unknown) (unknown) (no (unknown) (unknown) 1. L4-5, L5-S1 (units (unknown) date) Postero-lateral and unknown) posterior interbody fusion (unknown) (no (unknown) (unknown) 2. L4-5, L5-S1 (units (unknown) date) interbody cage unknown) placement. (unknown) (no (unknown) (unknown) 2. L4-5, L5-S1 (units (unknown) date) spinal stenosis with unknown) neurogenic claudication (unknown) (no (unknown) (unknown) 3. L4-5, L5-S1 (units (unknown) date) decompressive unknown) laminectomy with bilateral facetecomies (unknown) (no (unknown) (unknown) 4. L4-5, L5-S1 (units (unknown) date) Posterior segmental unknown) instrumentation (unknown) (no (unknown) (unknown) 5, L5-S1 level. The (unit s (unknown) date) endplates were unknown) decorticated using a rasp and shaver. The (unknown) (no (unknown) (unknown) 5. [place] of bone (units (unknown) date) marrow from iliac unknown) crest (unknown) (no (unknown) (unknown) 6. Utilization of (units (unknown) date) microsurgical unknown) technique and operating microscope (unknown) (no (unknown) (unknown) 7. Utilization of (units (unknown) date) robotic assisted unknown) navigation (unknown) (no (unknown) (unknown) Admit to inpatient (units (unknown) date) hospital unknown) (unknown) (no (unknown) (unknown) After all the (units ( unknown) date) hardware was placed, unknown) and confirmed with AP and lateral C-arm (unknown) (no (unknown) (unknown) After measuring the (unit s (unknown) date) length of the rods, unknown) they were inserted into the t[place]ips of (unknown) (no (unknown) (unknown) After patient was (units (unknown) date) prepped and draped, unknown) patient's PSIS was palpated and marked (unknown) (no (unknown) (unknown) Age/Sex: 86 / F (units (unknown) date) unknown) (unknown) (no (unknown) (unknown) Anesthesia Type: (units (unknown) date) General unknown) (unknown) (no (unknown) (unknown) Applied: catheter (units (unknown) date) unknown) (unknown) (no (unknown) (unknown) 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: Sathya Tam (units (unknown) date) [place] unknown) (unknown) (no (unknown) (unknown) At this time the (units (unknown) date) C-arm imaging was unknown) used to confirm AP and lateral of L4-L5, L5 (unknown) (no (unknown) (unknown) At this time the (units (unknown) date) tulips were attached unknown) to the L4, L5, S1 pedicle screw shanks. (unknown) (no (unknown) (unknown) At this time, a (units (unknown) date) separate skin is unknown) incision was made over the iliac crest. A (unknown) (no (unknown) (unknown) Blood products (units (unknown) date) transfused: none unknown) (unknown) (no (unknown) (unknown) Click Yes if (units (u nknown) date) Unassisted: No unknown) (unknown) (no (unknown) (unknown) Closure Type: (units ( unknown) date) primary unknown) (unknown) (no (unknown) (unknown) Complications: none (unit s (unknown) date) unknown) (unknown) (no (unknown) (unknown) Condition: stable (units (unknown) date) unknown) (unknown) (no (unknown) (unknown) : 1935 (units (unknown) date) Acct:[id number] unknown) (unknown) (no (unknown) (unknown) Date of Service: (units (unknown) date) 03/23/22 unknown) (unknown) (no (unknown) (unknown) Date of procedure: (units (unknown) date) 03/23/22 unknown) (unknown) (no (unknown) (unknown) Disposition: PACU (units (unknown) date) unknown) (unknown) (no (unknown) (unknown) Estimated Blood (units (unknown) date) Loss (mL): 100 unknown) (unknown) (no (unknown) (unknown) [employer] robotic (units (unknown) date) arm. Bilateral unknown) incision was made at this time. (unknown) (no (unknown) (unknown) Globus CREO MIS (units (unknown) date) screws, RIse cages unknown) (unknown) (no (unknown) (unknown) Gl[employer] MARS (units (un known) date) retractor was unknown) inserted and docked onto the L4-5, L5-S1 (unknown) (no (unknown) (unknown) Indications: (units (u nknown) date) unknown) (unknown) (no (unknown) (unknown) [facility] (units (unknown) date) [address] unknown) [place] [address] (unknown) (no (unknown) (unknown) Jamshidi needle was (units (unknown) date) inserted into the unknown) iliac crest through a separate skin incisi (unknown) (no (unknown) (unknown) L4-5, L5-S1 (units (un known) date) facetectomy was unknown) performed using a Kerrison rongeur. Patient was (unknown) (no (unknown) (unknown) L4-5, L5-S1 (units (un known) date) posterior lateral unknown) gutter he order to accomplish posterolateral (unknown) (no (unknown) (unknown) MARs retractor was (units (unknown) date) inserted using unknown) [employer] nagivation guidence. Globus MARS (unknown) (no (unknown) (unknown) Neuro monitoring (units (unknown) date) system was used to unknown) monitor patient's neurologic status (unknown) (no (unknown) (unknown) Operative (units (unkn own) date) Date/Time/Diagnoses unknown) (unknown) (no (unknown) (unknown) Operative Note (units (unknown) date) unknown) (unknown) (no (unknown) (unknown) Operative Notes (units (unknown) date) unknown) (unknown) (no (unknown) (unknown) Patient failed (units ( unknown) date) multiple unknown) conservative management with worsening pain weakness and (unknown) (no (unknown) (unknown) Patient has been (units (unknown) date) having chronic back unknown) pain and worsening lumbar radiculopathy. (unknown) (no (unknown) (unknown) Patient tolerated (units (unknown) date) the procedure well. unknown) There were no complications. (unknown) (no (unknown) (unknown) Patient was seen in (units (unknown) date) the preoperative unknown) area. Risks and benefits of the surgery was (unknown) (no (unknown) (unknown) Patient: (units (unkno wn) date) Tonja Connolly MR#: unknown) [id number] (unknown) (no (unknown) (unknown) Plan for aftercare: (unit s (unknown) date) unknown) (unknown) (no (unknown) (unknown) Post-op diagnosis: (units (unknown) date) same unknown) (unknown) (no (unknown) (unknown) Post-operative (units (unknown) date) unknown) (unknown) (no (unknown) (unknown) Pre templated (units ( unknown) date) trajectory was used unknown) and guided using the [employer] robotic (unknown) (no (unknown) (unknown) Pre-op diagnosis: (units (unknown) date) 1. L4-5, L5-S1 unknown) spondylolisthesis (unknown) (no (unknown) (unknown) Procedure + (units (un known) date) Clinicians unknown) (unknown) (no (unknown) (unknown) Procedure in (units (u nknown) date) detail: unknown) (unknown) (no (unknown) (unknown) Procedure: (units (unk nown) date) unknown) (unknown) (no (unknown) (unknown) Prosthetic devices, (unit s (unknown) date) grafts, tissues, unknown) transplants, or devices: (unknown) (no (unknown) (unknown) Provider: Matilde Alstno (units (unknown) date) unknown) (unknown) (no (unknown) (unknown) Ray-Kemal gauze for 3 (unit s (unknown) date) min to accomplish unknown) hemostasis. After the gauze was removed (unknown) (no (unknown) (unknown) S1 vertebrae and (units (unknown) date) merged the C-arm unknown) imaging using the new test companyus robotic navigation (unknown) (no (unknown) (unknown) Same procedure as (units (unknown) date) scheduled: Yes unknown) (unknown) (no (unknown) (unknown) Signed (units (unkno wn) date) By:<Electronically unknown) signed by Matilde Alston MD> (unknown) (no (unknown) (unknown) Specimen(s): none (units (unknown) date) sent unknown) (unknown) (no (unknown) (unknown) Surgeon: Matilde Alston (units (unknown) date) unknown) (unknown) (no (unknown) (unknown) The bone grafting (units (unknown) date) material was placed unknown) into the L4-5, L5-S1 interbody space (unknown) (no (unknown) (unknown) The disc (units (unkno wn) date) preparation as well unknown) as the cage insertion were also performed under (unknown) (no (unknown) (unknown) Time of procedure: (units (unknown) date) 12:30 unknown) (unknown) (no (unknown) (unknown) Using microsurgical (units (unknown) date) technique and unknown) operating microscope, a L4, L5 laminectomy and (unknown) (no (unknown) (unknown) activity of daily (units (unknown) date) living. After unknown) discussing risks benefits of treatment options, (unknown) (no (unknown) (unknown) all 6 screws were (units (unknown) date) placed C-arm imaging unknown) was taken of both AP and lateral to (unknown) (no (unknown) (unknown) along with a (units (u nknown) date) expandable cage. The unknown) cage was expanded to its maximum height using (unknown) (no (unknown) (unknown) and confirmed, skin (unit s (unknown) date) marker was used to unknown) woody out the skin incision using the (unknown) (no (unknown) (unknown) aspiration was (units ( unknown) date) combined with local unknown) bone and the Trifecta bone grafting material. (unknown) (no (unknown) (unknown) bilaterally. Small (units (unknown) date) 1 cm incision was unknown) made over the PSIS for placement of the (unknown) (no (unknown) (unknown) bone was (units (unkno wn) date) identified. The unknown) remaining bone grafting material was placed into the (unknown) (no (unknown) (unknown) closed with 2-0 (units (unknown) date) Vicryl. The skin was unknown) closed with skin samson. (unknown) (no (unknown) (unknown) complete the (units (u nknown) date) posterior unknown) instrumentation construct. (unknown) (no (unknown) (unknown) confirm the (units (un known) date) placement. Excellent unknown) placement of the screws were confirmed and a (unknown) (no (unknown) (unknown) decompressed after (units (unknown) date) the laminectomy unknown) facetectomy. More than 75% of the facets (unknown) (no (unknown) (unknown) decortication was (units (unknown) date) completed, Trifecta unknown) bone graft material was combined with (unknown) (no (unknown) (unknown) discussed with the (units (unknown) date) patient. Informed unknown) consent was obtained from the patient and (unknown) (no (unknown) (unknown) done by using the (units (unknown) date) robotic arm to guide unknown) the high-speed bur to make a cortical (unknown) (no (unknown) (unknown) entry point. Next a (unit s (unknown) date) drill was placed unknown) also using the robotic arm and guided (unknown) (no (unknown) (unknown) facetectomy was (units (unknown) date) saved for local bone unknown) grafting. 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 unknown) (unknown) (no (unknown) (unknown) given to the (units (u nknown) date) patient less than 30 unknown) min before the incision was made. Patient was (unknown) (no (unknown) (unknown) grossly unstable (units (unknown) date) and required a unknown) fusion procedure at the same time. The disc (unknown) (no (unknown) (unknown) imaging, the wound (units (unknown) date) was then irrigated unknown) with sterile normal saline and packed with (unknown) (no (unknown) (unknown) incision using a (units (unknown) date) Jamshidi needle from unknown) the iliac crest. The bone marrow (unknown) (no (unknown) (unknown) lateral (units (unkno wn) date) decortication was unknown) performed at L4-5, L5-S1 level until bleeding cortical (unknown) (no (unknown) (unknown) local bone that was (unit s (unknown) date) harvested earlier. unknown) (unknown) (no (unknown) (unknown) matched precisely (units (unknown) date) with the pre planned unknown) screw placement using the navigation (unknown) (no (unknown) (unknown) navigation (units (unk nown) date) guidance. After the unknown) cage was placed, AP and lateral C-arm imaging (unknown) (no (unknown) (unknown) navigation system (units (unknown) date) for bilateral L4, unknown) L5, S1 pedicle screw placement. This was (unknown) (no (unknown) (unknown) numbness in her (units (unknown) date) lower extremity. unknown) Patient has been having difficulty performing (unknown) (no (unknown) (unknown) on. 5 cc of bone (units (unknown) date) marrow aspiration unknown) was obtained through the separate skin (unknown) (no (unknown) (unknown) operative room. (units (unknown) date) General anesthesia unknown) was administered. Prophylactic antibiotic was (unknown) (no (unknown) (unknown) patient elected (units (unknown) date) proceed with unknown) surgery. (unknown) (no (unknown) (unknown) pedicles. Next L4, (units (unknown) date) L5, S1 pedicle unknown) screws it was pre templated and measured was (unknown) (no (unknown) (unknown) placed in the (units ( unknown) date) chart. Surgical site unknown) was marked. Patient was taken to the (unknown) (no (unknown) (unknown) placed into a prone (unit s (unknown) date) position on the unknown) Balwinder table. Patient's back was then (unknown) (no (unknown) (unknown) placed onto the (units (unknown) date) power recycler forklift driver truck driver and unknown) inserted into the pedicles bilaterally. After (unknown) (no (unknown) (unknown) posterolateral (units (unknown) date) gutter on the right unknown) side. Using the power drill, posterior (unknown) (no (unknown) (unknown) prepped and draped (units (unknown) date) in the sterile unknown) fashion. Time-out was performed at this time. (unknown) (no (unknown) (unknown) reference probe was (unit s (unknown) date) attached to the unknown) trocar of the reference apparatus. (unknown) (no (unknown) (unknown) reference probes. (units (unknown) date) Two trocar was unknown) placed into the PSIS 1 on each side. The (unknown) (no (unknown) (unknown) retractors was (units (unknown) date) placed inside the unknown) incision and docked onto the L4 and L5 lamina. (unknown) (no (unknown) (unknown) screwdriver (units (un known) date) bilaterally. Total 6 unknown) caps and 2 titanium rods was used in order to (unknown) (no (unknown) (unknown) signals throughout (units (unknown) date) the case. unknown) (unknown) (no (unknown) (unknown) space at L4-5, (units (unknown) date) L5-S1 was unknown) identified, and a total diskectomy was performed at L4 (unknown) (no (unknown) (unknown) system with the CT (units (unknown) date) of the lumbar spine. unknown) After successful merging was completed (unknown) (no (unknown) (unknown) system. (units (unkno wn) date) unknown) (unknown) (no (unknown) (unknown) the deep fascia was (unit s (unknown) date) closed with #1 unknown) Vicryl suture. The subcutaneous layer was (unknown) (no (unknown) (unknown) the pedicle screws (units (unknown) date) and locked in place unknown) using locking caps and torque limiting (unknown) (no (unknown) (unknown) the torque limiting (unit s (unknown) date) screwdriver. unknown) (unknown) (no (unknown) (unknown) throughout entire (units (unknown) date) procedure. There was unknown) no disturbance of the neural monitoring (unknown) (no (unknown) (unknown) to to accomplish a (units (unknown) date) L4-5, L5-S1 fusion. unknown) The local bone from the laminectomy and (unknown) (no (unknown) (unknown) total diskectomy (units (unknown) date) and decortication unknown) was performed at L4-5, L5-S1 level in order (unknown) (no (unknown) (unknown) using the (units (unkn own) date) navigation system unknown) drilling partially through bilateral L4, L5 and S1 (unknown) (no (unknown) (unknown) was taken to confirm (unit s (unknown) date) placement of the unknown) cage and excellent position was confirmed. (unknown) (no (unknown) (unknown) were removed during (unit s (unknown) date) the process of unknown) decompression rendering L4-5, L5-S1 level Result panel 9 (unknown) (no date) (unknown) (unknown) 11.4 g/dl (unkn own) (unknown) (no date) (unknown) (unknown) 32.6 % (unkn own) Result panel 10 (unknown) (no (unknown) (unknown) (no value) (units (unk nown) date) unknown) (unknown) (no (unknown) (unknown) (past 8 hours): (units (unknown) date) unknown) (unknown) (no (unknown) (unknown) -DC urinary (units (un known) date) catheter once unknown) mobilizing well (unknown) (no (unknown) (unknown) -continue with (units (unknown) date) multimodal pain unknown) management (unknown) (no (unknown) (unknown) -disposition: (units ( unknown) date) Possibly home this unknown) afternoon/evening, or tomorrow, depending on (unknown) (no (unknown) (unknown) [id number] (units (unkno wn) date) unknown) (unknown) (no (unknown) (unknown) 04:00 03/24/22 (units (unknown) date) unknown) (unknown) (no (unknown) (unknown) 07:22 (units (unkno wn) date) unknown) (unknown) (no (unknown) (unknown) 08:11 (units (unkno wn) date) unknown) (unknown) (no (unknown) (unknown) 03/24/22 07:22 (units (unknown) date) unknown) (unknown) (no (unknown) (unknown) 03/24/22 0819 (units ( unknown) date) unknown) (unknown) (no (unknown) (unknown) 03/24/22 (units (unkno wn) date) unknown) (unknown) (no (unknown) (unknown) 86-year-old (units (un known) date) female, resting unknown) comfortably in bed, no acute distress. Dressing (unknown) (no (unknown) (unknown) Actual Procedure (units (unknown) date) Side Surgeon unknown) (unknown) (no (unknown) (unknown) Age/Sex: 86 / F (units (unknown) date) unknown) (unknown) (no (unknown) (unknown) Assessment + Plan (units (unknown) date) Post-op unknown) (unknown) (no (unknown) (unknown) Bilateral lower (units (unknown) date) extremity: Motor unknown) functions are grossly intact, sensation is (unknown) (no (unknown) (unknown) Blood Pressure (units (unknown) date) 133/56 L 127/53 L unknown) (unknown) (no (unknown) (unknown) : 1935 (units (unknown) date) Acct:[id number] unknown) (unknown) (no (unknown) (unknown) Date Patient (units (u nknown) date) Seen: 03/24/22 unknown) (unknown) (no (unknown) (unknown) Date of Service: (units (unknown) date) 03/23/22 unknown) (unknown) (no (unknown) (unknown) Edema (units (unkno wn) date) unknown) (unknown) (no (unknown) (unknown) Exam Narrative: (units (unknown) date) unknown) (unknown) (no (unknown) (unknown) Exam (units (unkno wn) date) unknown) (unknown) (no (unknown) (unknown) HLD (units (unkno wn) date) (hyperlipidemia) unknown) (unknown) (no (unknown) (unknown) Hct 32.6 L (units (unk nown) date) unknown) (unknown) (no (unknown) (unknown) Hgb 11.4 L (units (unk nown) date) unknown) (unknown) (no (unknown) (unknown) History of (units (unk nown) date) hysterectomy unknown) (unknown) (no (unknown) (unknown) History of total (units (unknown) date) left hip unknown) arthroplasty (unknown) (no (unknown) (unknown) History of total (units (unknown) date) right hip unknown) arthroplasty (unknown) (no (unknown) (unknown) Hx of bilateral (units (unknown) date) cataract unknown) extraction (unknown) (no (unknown) (unknown) Hx of dilation (units (unknown) date) and curettage unknown) (unknown) (no (unknown) (unknown) Hx of (units (unkno wn) date) tonsillectomy unknown) (unknown) (no (unknown) (unknown) Interval history: (units (unknown) date) unknown) (unknown) (no (unknown) (unknown) [facility] (units (unknown) date) [address] unknown) [place] [address] (unknown) (no (unknown) (unknown) Laboratory (units (unk nown) date) Results - last 24 unknown) hr (unknown) (no (unknown) (unknown) Labs (units (unkno wn) date) unknown) (unknown) (no (unknown) (unknown) Labs: (units (unkno wn) date) unknown) (unknown) (no (unknown) (unknown) Medical History (units (unknown) date) (Reviewed 03/24/22 unknown) @ 08:18 by Herminia Pandya PA-C) (unknown) (no (unknown) (unknown) Narrative (units (unkn own) date) unknown) (unknown) (no (unknown) (unknown) Objective (units (unkn own) date) unknown) (unknown) (no (unknown) (unknown) Operation Date: (units (unknown) date) 03/23/22 10:45 unknown) (unknown) (no (unknown) (unknown) Oxygen Delivery (units (unknown) date) Method Nasal unknown) Cannula (unknown) (no (unknown) (unknown) Oxygen Flow Rate (units (unknown) date) 0 unknown) (unknown) (no (unknown) (unknown) PFSH (units (unkno wn) date) unknown) (unknown) (no (unknown) (unknown) Patient is (units (unk nown) date) complaining of unknown) moderate low back pain this morning. She has not been (unknown) (no (unknown) (unknown) Patient: (units (unkno wn) date) Tonja Connolly unknown) MR#: [id number] (unknown) (no (unknown) (unknown) Postoperative (units ( unknown) date) day: 1 unknown) (unknown) (no (unknown) (unknown) Postoperative (units ( unknown) date) plan narrative: unknown) Mobilize with PT/OT. No bending, lifting, (unknown) (no (unknown) (unknown) Postoperative (units ( unknown) date) status narrative: unknown) Stable status post L4-5, L5-S1 TLIF (unknown) (no (unknown) (unknown) Postoperative (units ( unknown) date) status: doing well unknown) (unknown) (no (unknown) (unknown) Postoperative (units ( unknown) date) unknown) (unknown) (no (unknown) (unknown) Procedures (units (unk nown) date) unknown) (unknown) (no (unknown) (unknown) Procedures: (units (un known) date) unknown) (unknown) (no (unknown) (unknown) Progress Note (units ( unknown) date) unknown) (unknown) (no (unknown) (unknown) Provider: (units (unkn own) date) Herminia Pandya P.A-C (unknown) (no (unknown) (unknown) Pulse Oximetry 96 (units (unknown) date) unknown) (unknown) (no (unknown) (unknown) Pulse Rate 83 82 (units (unknown) date) unknown) (unknown) (no (unknown) (unknown) Respiratory Rate (units (unknown) date) 17 unknown) (unknown) (no (unknown) (unknown) Result Diagrams: (units (unknown) date) unknown) (unknown) (no (unknown) (unknown) Sciatica (units (unkno wn) date) unknown) (unknown) (no (unknown) (unknown) Short-term memory (units (unknown) date) loss unknown) (unknown) (no (unknown) (unknown) Signed (units (unkno wn) date) By:<Electronically unknown) signed by Herminia Pandya> (unknown) (no (unknown) (unknown) Smoking Status: (units (unknown) date) Former smoker unknown) (unknown) (no (unknown) (unknown) Social History (units (unknown) date) (Reviewed 03/24/22 unknown) @ 08:18 by Herminia Pandya PA-C) (unknown) (no (unknown) (unknown) Spinal stenosis (units (unknown) date) unknown) (unknown) (no (unknown) (unknown) Subjective (units (unk nown) date) unknown) (unknown) (no (unknown) (unknown) Surgical History (units (unknown) date) (Reviewed 03/24/22 unknown) @ 08:18 by Herminia Pandya PA-C) (unknown) (no (unknown) (unknown) Temperature 97.2 (units (unknown) date) F L unknown) (unknown) (no (unknown) (unknown) Time Patient (units (u nknown) date) Seen: 07:45 unknown) (unknown) (no (unknown) (unknown) Vital Signs (units (un known) date) unknown) (unknown) (no (unknown) (unknown) [Embedded Image (units (unknown) date) Not Available] unknown) (unknown) (no (unknown) (unknown) alcohol intake: (units (unknown) date) current unknown) (unknown) (no (unknown) (unknown) demonstrates some (units (unknown) date) bloody discharge unknown) but no surrounding erythema or induration. (unknown) (no (unknown) (unknown) foot and leg (units (u nknown) date) numbness is unknown) improving, which he had prior to surgery. Her postop (unknown) (no (unknown) (unknown) grossly intact to (units (unknown) date) light touch, unknown) calves are soft and nontender to palpation. (unknown) (no (unknown) (unknown) household (units (unkn own) date) members: spouse unknown) (unknown) (no (unknown) (unknown) how PT/OT goes. I (units (unknown) date) will check on her unknown) later today. (unknown) (no (unknown) (unknown) nausea and (units (unk nown) date) vomiting has unknown) resolved. (unknown) (no (unknown) (unknown) p L4-5, L5-S1 (units ( unknown) date) TLIF w. posterior unknown) instrumentation -Robot Matilde Alston MD (unknown) (no (unknown) (unknown) twisting x6 weeks (units (unknown) date) unknown) (unknown) (no (unknown) (unknown) up with physical (units (unknown) date) therapy or unknown) occupational therapy yet. She does know her right Result panel 11 (unknown) (no (unknown) (unknown) (no value) (units (unk nown) date) unknown) (unknown) (no (unknown) (unknown) (past 8 hours): (units (unknown) date) unknown) (unknown) (no (unknown) (unknown) [id number] (units (unkno wn) date) unknown) (unknown) (no (unknown) (unknown) 07:22 (units (unkno wn) date) unknown) (unknown) (no (unknown) (unknown) 03/23/22 09:20 (units (unknown) date) unknown) (unknown) (no (unknown) (unknown) 03/23/22 16:51 (units (unknown) date) unknown) (unknown) (no (unknown) (unknown) 03/24/22 07:22 (units (unknown) date) unknown) (unknown) (no (unknown) (unknown) 03/24/22 (units (unkno wn) date) unknown) (unknown) (no (unknown) (unknown) 1 tab PO BEDTIME (units (unknown) date) unknown) (unknown) (no (unknown) (unknown) 10 mg PO BEDTIME (units (unknown) date) unknown) (unknown) (no (unknown) (unknown) 11:16 03/24/22 (units (unknown) date) unknown) (unknown) (no (unknown) (unknown) 15:37 03/24/22 (units (unknown) date) unknown) (unknown) (no (unknown) (unknown) 15:44 (units (unkno wn) date) unknown) (unknown) (no (unknown) (unknown) 20 mg PO QAM (units (u nknown) date) unknown) (unknown) (no (unknown) (unknown) 300 mg PO (units (unkn own) date) BEDTIME unknown) (unknown) (no (unknown) (unknown) Age/Sex: 86 / F (units (unknown) date) unknown) (unknown) (no (unknown) (unknown) Pamella Ortega, (units (unknown) date) MD unknown) (unknown) (no (unknown) (unknown) Blood Pressure (units (unknown) date) 104/51 L 103/58 L unknown) (unknown) (no (unknown) (unknown) Herminia Pandya, (units (unknown) date) PA-C unknown) (unknown) (no (unknown) (unknown) Chief complaint: (units (unknown) date) TLIF robot unknown) (unknown) (no (unknown) (unknown) Comment: (units (unkno wn) date) unknown) (unknown) (no (unknown) (unknown) Consult to (units (unk nown) date) Occupational unknown) Therapy Evaluate + Treat (unknown) (no (unknown) (unknown) Consult to (units (unk nown) date) Physical Therapy unknown) Evaluate + Treat (unknown) (no (unknown) (unknown) Consults: (units (unkn own) date) unknown) (unknown) (no (unknown) (unknown) : 1935 (units (unknown) date) Acct:[id number] unknown) (unknown) (no (unknown) (unknown) Pamella Ortega, (units (unknown) date) MD [Primary Care unknown) Provider] (unknown) (no (unknown) (unknown) Date of Service: (units (unknown) date) 03/23/22 unknown) (unknown) (no (unknown) (unknown) Date of (units (unkno wn) date) admission: unknown) (unknown) (no (unknown) (unknown) Discharge Data (units (unknown) date) unknown) (unknown) (no (unknown) (unknown) Discharge Plan (units (unknown) date) unknown) (unknown) (no (unknown) (unknown) Discharge (units (unkn own) date) Providers unknown) (unknown) (no (unknown) (unknown) Discharge (units (unkn own) date) Summary unknown) (unknown) (no (unknown) (unknown) Discharge orders (units (unknown) date) + Medications unknown) (unknown) (no (unknown) (unknown) Discharge (units (unkn own) date) provider: unknown) (unknown) (no (unknown) (unknown) Edema (units (unkno wn) date) unknown) (unknown) (no (unknown) (unknown) Exam (units (unkno wn) date) unknown) (unknown) (no (unknown) (unknown) Follow (units (unkno wn) date) up/Referrals: unknown) (unknown) (no (unknown) (unknown) HLD (units (unkno wn) date) (hyperlipidemia) unknown) (unknown) (no (unknown) (unknown) Hct 32.6 L (units (unk nown) date) unknown) (unknown) (no (unknown) (unknown) Hgb 11.4 L (units (unk nown) date) unknown) (unknown) (no (unknown) (unknown) History of (units (unk nown) date) Present Illness unknown) (unknown) (no (unknown) (unknown) History of (units (unk nown) date) hysterectomy unknown) (unknown) (no (unknown) (unknown) History of total (units (unknown) date) left hip unknown) arthroplasty (unknown) (no (unknown) (unknown) History of total (units (unknown) date) right hip unknown) arthroplasty (unknown) (no (unknown) (unknown) Hx of bilateral (units (unknown) date) cataract unknown) extraction (unknown) (no (unknown) (unknown) Hx of dilation (units (unknown) date) and curettage unknown) (unknown) (no (unknown) (unknown) Hx of (units (unkno wn) date) tonsillectomy unknown) (unknown) (no (unknown) (unknown) [facility] (units (unknown) date) [address] unknown) [place] [address] (unknown) (no (unknown) (unknown) Laboratory (units (unk nown) date) Results - last 24 unknown) hr (unknown) (no (unknown) (unknown) Labs (units (unkno wn) date) unknown) (unknown) (no (unknown) (unknown) Labs: (units (unkno wn) date) unknown) (unknown) (no (unknown) (unknown) Medical History (units (unknown) date) (Reviewed unknown) 03/24/22 @ 08:18 by Herminia Pandya PA-C) (unknown) (no (unknown) (unknown) No Action (units (unkn own) date) unknown) (unknown) (no (unknown) (unknown) Objective (units (unkn own) date) unknown) (unknown) (no (unknown) (unknown) Oxygen Delivery (units (unknown) date) Method Nasal unknown) Cannula (unknown) (no (unknown) (unknown) Oxygen Flow Rate (units (unknown) date) 0 0 unknown) (unknown) (no (unknown) (unknown) Oxygen Flow Rate (units (unknown) date) 0 unknown) (unknown) (no (unknown) (unknown) PFSH (units (unkno wn) date) unknown) (unknown) (no (unknown) (unknown) Patient: (units (unkno wn) date) Tonja Connolly unknown) MR#: [id number] (unknown) (no (unknown) (unknown) Physician (units (unkn own) date) Instructions: unknown) Evaluate and Treat (unknown) (no (unknown) (unknown) Physician (units (unkn own) date) Instructions: unknown) Evaluate and treat (unknown) (no (unknown) (unknown) Prescriptions: (units (unknown) date) unknown) (unknown) (no (unknown) (unknown) Primary Care (units (u nknown) date) Provider: unknown) Pamella Ortega (unknown) (no (unknown) (unknown) Primary care (units (u nknown) date) physician: unknown) (unknown) (no (unknown) (unknown) Provider (units (unkno wn) date) unknown) (unknown) (no (unknown) (unknown) Provider: (units (unkn own) date) Herminia Pandya unknown) P.A-C (unknown) (no (unknown) (unknown) Pulse Oximetry (units (unknown) date) 98 97 unknown) (unknown) (no (unknown) (unknown) Pulse Rate 81 78 (units (unknown) date) unknown) (unknown) (no (unknown) (unknown) Respiratory Rate (units (unknown) date) 18 18 unknown) (unknown) (no (unknown) (unknown) Result Diagrams: (units (unknown) date) unknown) (unknown) (no (unknown) (unknown) Sciatica (units (unkno wn) date) unknown) (unknown) (no (unknown) (unknown) Short-term (units (unk nown) date) memory loss unknown) (unknown) (no (unknown) (unknown) Signed By: (units (unk nown) date) unknown) (unknown) (no (unknown) (unknown) Smoking Status: (units (unknown) date) Former smoker unknown) (unknown) (no (unknown) (unknown) Social History (units (unknown) date) (Reviewed unknown) 03/24/22 @ 08:18 by Herminia Pandya PA-C) (unknown) (no (unknown) (unknown) Spinal stenosis (units (unknown) date) unknown) (unknown) (no (unknown) (unknown) Surgical History (units (unknown) date) (Reviewed unknown) 03/24/22 @ 08:18 by Herminia Pandya PA-C) (unknown) (no (unknown) (unknown) Temperature 98.2 (units (unknown) date) F unknown) (unknown) (no (unknown) (unknown) Vital Signs (units (un known) date) unknown) (unknown) (no (unknown) (unknown) [Embedded Image (units (unknown) date) Not Available] unknown) (unknown) (no (unknown) (unknown) alcohol intake: (units (unknown) date) current unknown) (unknown) (no (unknown) (unknown) atorvastatin 10 (units (unknown) date) mg Tablet unknown) (unknown) (no (unknown) (unknown) diphenhydramine- (units (unknown) date) acetaminophen unknown) [Acetaminophen PM] 25-500 mg Tablet (unknown) (no (unknown) (unknown) furosemide 20 mg (units (unknown) date) Tablet unknown) (unknown) (no (unknown) (unknown) gabapentin 300 (units (unknown) date) mg Capsule unknown) (unknown) (no (unknown) (unknown) household (units (unkn own) date) members: spouse unknown) Result panel 12 (unknown) (no (unknown) (unknown) (no value) (units (unk nown) date) unknown) (unknown) (no (unknown) (unknown) (past 8 hours): (units (unknown) date) unknown) (unknown) (no (unknown) (unknown) [id number] (units (unkno wn) date) unknown) (unknown) (no (unknown) (unknown) 07:22 (units (unkno wn) date) unknown) (unknown) (no (unknown) (unknown) 03/23/22 09:20 (units (unknown) date) unknown) (unknown) (no (unknown) (unknown) 03/23/22 16:51 (units (unknown) date) unknown) (unknown) (no (unknown) (unknown) 03/24/22 07:22 (units (unknown) date) unknown) (unknown) (no (unknown) (unknown) 03/24/22 (units (unkno wn) date) unknown) (unknown) (no (unknown) (unknown) 1 tab PO BEDTIME (units (unknown) date) unknown) (unknown) (no (unknown) (unknown) 10 mg PO BEDTIME (units (unknown) date) unknown) (unknown) (no (unknown) (unknown) 11:16 03/24/22 (units (unknown) date) unknown) (unknown) (no (unknown) (unknown) 15:37 03/24/22 (units (unknown) date) unknown) (unknown) (no (unknown) (unknown) 15:44 (units (unkno wn) date) unknown) (unknown) (no (unknown) (unknown) 20 mg PO QAM (units (u nknown) date) unknown) (unknown) (no (unknown) (unknown) 300 mg PO (units (unkn own) date) BEDTIME unknown) (unknown) (no (unknown) (unknown) Age/Sex: 86 / F (units (unknown) date) unknown) (unknown) (no (unknown) (unknown) Pamella Ortega, (units (unknown) date) unknown) (unknown) (no (unknown) (unknown) Blood Pressure (units (unknown) date) 104/51 L 103/58 L unknown) (unknown) (no (unknown) (unknown) Herminia Pandya, (units (unknown) date) PA-C unknown) (unknown) (no (unknown) (unknown) Chief complaint: (units (unknown) date) TLIF robot unknown) (unknown) (no (unknown) (unknown) Comment: (units (unkno wn) date) unknown) (unknown) (no (unknown) (unknown) Consult to (units (unk nown) date) Occupational unknown) Therapy Evaluate + Treat (unknown) (no (unknown) (unknown) Consult to (units (unk nown) date) Physical Therapy unknown) Evaluate + Treat (unknown) (no (unknown) (unknown) Consults: (units (unkn own) date) unknown) (unknown) (no (unknown) (unknown) : 1935 (units (unknown) date) Acct:[id number] unknown) (unknown) (no (unknown) (unknown) Pamella Ortega, (units (unknown) date) [Primary Care unknown) Provider] (unknown) (no (unknown) (unknown) Date Patient (units (u nknown) date) Seen: 03/24/22 unknown) (unknown) (no (unknown) (unknown) Date of Service: (units (unknown) date) 03/23/22 unknown) (unknown) (no (unknown) (unknown) Date of (units (unkno wn) date) admission: unknown) (unknown) (no (unknown) (unknown) Discharge Data (units (unknown) date) unknown) (unknown) (no (unknown) (unknown) Discharge Plan (units (unknown) date) unknown) (unknown) (no (unknown) (unknown) Discharge (units (unkn own) date) Providers unknown) (unknown) (no (unknown) (unknown) Discharge (units (unkn own) date) Summary unknown) (unknown) (no (unknown) (unknown) Discharge orders (units (unknown) date) + Medications unknown) (unknown) (no (unknown) (unknown) Discharge (units (unkn own) date) provider: unknown) (unknown) (no (unknown) (unknown) Edema (units (unkno wn) date) unknown) (unknown) (no (unknown) (unknown) Exam (units (unkno wn) date) unknown) (unknown) (no (unknown) (unknown) Follow (units (unkno wn) date) up/Referrals: unknown) (unknown) (no (unknown) (unknown) HLD (units (unkno wn) date) (hyperlipidemia) unknown) (unknown) (no (unknown) (unknown) Hct 32.6 L (units (unk nown) date) unknown) (unknown) (no (unknown) (unknown) Hgb 11.4 L (units (unk nown) date) unknown) (unknown) (no (unknown) (unknown) History of (units (unk nown) date) Present Illness unknown) (unknown) (no (unknown) (unknown) History of (units (unk nown) date) hysterectomy unknown) (unknown) (no (unknown) (unknown) History of total (units (unknown) date) left hip unknown) arthroplasty (unknown) (no (unknown) (unknown) History of total (units (unknown) date) right hip unknown) arthroplasty (unknown) (no (unknown) (unknown) Hx of bilateral (units (unknown) date) cataract unknown) extraction (unknown) (no (unknown) (unknown) Hx of dilation (units (unknown) date) and curettage unknown) (unknown) (no (unknown) (unknown) Hx of (units (unkno wn) date) tonsillectomy unknown) (unknown) (no (unknown) (unknown) [facility] (units (unknown) date) [address] unknown) [place] [address] (unknown) (no (unknown) (unknown) Laboratory (units (unk nown) date) Results - last 24 unknown) hr (unknown) (no (unknown) (unknown) Labs (units (unkno wn) date) unknown) (unknown) (no (unknown) (unknown) Labs: (units (unkno wn) date) unknown) (unknown) (no (unknown) (unknown) Medical History (units (unknown) date) (Reviewed unknown) 03/24/22 @ 08:18 by Herminia Pandya PA-C) (unknown) (no (unknown) (unknown) No Action (units (unkn own) date) unknown) (unknown) (no (unknown) (unknown) Objective (units (unkn own) date) unknown) (unknown) (no (unknown) (unknown) Oxygen Delivery (units (unknown) date) Method Nasal unknown) Cannula (unknown) (no (unknown) (unknown) Oxygen Flow Rate (units (unknown) date) 0 0 unknown) (unknown) (no (unknown) (unknown) Oxygen Flow Rate (units (unknown) date) 0 unknown) (unknown) (no (unknown) (unknown) PFSH (units (unkno wn) date) unknown) (unknown) (no (unknown) (unknown) Patient: (units (unkno wn) date) Tonja Connolly unknown) MR#: [id number] (unknown) (no (unknown) (unknown) Physician (units (unkn own) date) Instructions: unknown) Evaluate and Treat (unknown) (no (unknown) (unknown) Physician (units (unkn own) date) Instructions: unknown) Evaluate and treat (unknown) (no (unknown) (unknown) Prescriptions: (units (unknown) date) unknown) (unknown) (no (unknown) (unknown) Primary Care (units (u nknown) date) Provider: unknown) Pamella Ortega (unknown) (no (unknown) (unknown) Primary care (units (u nknown) date) physician: unknown) (unknown) (no (unknown) (unknown) Provider (units (unkno wn) date) unknown) (unknown) (no (unknown) (unknown) Provider: (units (unkn own) date) Herminia Pandya unknown) PRuben (unknown) (no (unknown) (unknown) Pulse Oximetry (units (unknown) date) 98 97 unknown) (unknown) (no (unknown) (unknown) Pulse Rate 81 78 (units (unknown) date) unknown) (unknown) (no (unknown) (unknown) Respiratory Rate (units (unknown) date) 18 18 unknown) (unknown) (no (unknown) (unknown) Result Diagrams: (units (unknown) date) unknown) (unknown) (no (unknown) (unknown) Sciatica (units (unkno wn) date) unknown) (unknown) (no (unknown) (unknown) Short-term (units (unk nown) date) memory loss unknown) (unknown) (no (unknown) (unknown) Signed By: (units (unk nown) date) unknown) (unknown) (no (unknown) (unknown) Smoking Status: (units (unknown) date) Former smoker unknown) (unknown) (no (unknown) (unknown) Social History (units (unknown) date) (Reviewed unknown) 03/24/22 @ 08:18 by Herminia Pandya PA-C) (unknown) (no (unknown) (unknown) Spinal stenosis (units (unknown) date) unknown) (unknown) (no (unknown) (unknown) Surgical History (units (unknown) date) (Reviewed unknown) 03/24/22 @ 08:18 by Herminia Pandya PA-C) (unknown) (no (unknown) (unknown) Temperature 98.2 (units (unknown) date) F unknown) (unknown) (no (unknown) (unknown) Time Patient (units (u nknown) date) Seen: 17:55 unknown) (unknown) (no (unknown) (unknown) Vital Signs (units (un known) date) unknown) (unknown) (no (unknown) (unknown) [Embedded Image (units (unknown) date) Not Available] unknown) (unknown) (no (unknown) (unknown) alcohol intake: (units (unknown) date) current unknown) (unknown) (no (unknown) (unknown) atorvastatin 10 (units (unknown) date) mg Tablet unknown) (unknown) (no (unknown) (unknown) diphenhydramine- (units (unknown) date) acetaminophen unknown) [Acetaminophen PM] 25-500 mg Tablet (unknown) (no (unknown) (unknown) furosemide 20 mg (units (unknown) date) Tablet unknown) (unknown) (no (unknown) (unknown) gabapentin 300 (units (unknown) date) mg Capsule unknown) (unknown) (no (unknown) (unknown) household (units (unkn own) date) members: spouse unknown) Result panel 13 (unknown) (no (unknown) (unknown) (no value) (units (unk nown) date) unknown) (unknown) (no (unknown) (unknown) (past 8 hours): (units (unknown) date) unknown) (unknown) (no (unknown) (unknown) -continue with (units (unknown) date) multimodal pain unknown) management (unknown) (no (unknown) (unknown) [id number] (units (unkno wn) date) unknown) (unknown) (no (unknown) (unknown) 07:22 (units (unkno wn) date) unknown) (unknown) (no (unknown) (unknown) 03/23/22 09:20 (units (unknown) date) unknown) (unknown) (no (unknown) (unknown) 03/23/22 16:51 (units (unknown) date) unknown) (unknown) (no (unknown) (unknown) 03/24/22 07:22 (units (unknown) date) unknown) (unknown) (no (unknown) (unknown) 03/24/22 (units (unkno wn) date) unknown) (unknown) (no (unknown) (unknown) 1 tab PO BEDTIME (units (unknown) date) unknown) (unknown) (no (unknown) (unknown) 1. L4-5, L5-S1 (units (unknown) date) Postero-lateral and unknown) posterior interbody fusion (unknown) (no (unknown) (unknown) 1. L4-5, L5-S1 (units (unknown) date) spondylolisthesis unknown) (unknown) (no (unknown) (unknown) 10 mg PO BEDTIME (units (unknown) date) unknown) (unknown) (no (unknown) (unknown) 11:16 03/24/22 (units (unknown) date) unknown) (unknown) (no (unknown) (unknown) 15:37 03/24/22 (units (unknown) date) unknown) (unknown) (no (unknown) (unknown) 15:44 (units (unkno wn) date) unknown) (unknown) (no (unknown) (unknown) 2. L4-5, L5-S1 (units (unknown) date) interbody cage unknown) placement. (unknown) (no (unknown) (unknown) 2. L4-5, L5-S1 (units (unknown) date) spinal stenosis with unknown) neurogenic claudication (unknown) (no (unknown) (unknown) 20 mg PO QAM (units (u nknown) date) unknown) (unknown) (no (unknown) (unknown) 3. L4-5, L5-S1 (units (unknown) date) decompressive unknown) laminectomy with bilateral facetecomies (unknown) (no (unknown) (unknown) 300 mg PO BEDTIME (units (unknown) date) unknown) (unknown) (no (unknown) (unknown) 4. L4-5, L5-S1 (units (unknown) date) Posterior segmental unknown) instrumentation (unknown) (no (unknown) (unknown) 5. [place] of bone (units (unknown) date) marrow from iliac unknown) crest (unknown) (no (unknown) (unknown) 6. Utilization of (units (unknown) date) microsurgical unknown) technique and operating microscope (unknown) (no (unknown) (unknown) 7. Utilization of (units (unknown) date) robotic assisted unknown) navigation (unknown) (no (unknown) (unknown) Age/Sex: 86 / F (units (unknown) date) unknown) (unknown) (no (unknown) (unknown) Anesthesia Type: (units (unknown) date) General unknown) (unknown) (no (unknown) (unknown) Pamella Ortega MD (units (unknown) date) unknown) (unknown) (no (unknown) (unknown) Applied: catheter (units (unknown) date) unknown) (unknown) (no (unknown) (unknown) Assessment and Plan (unit s (unknown) date) unknown) (unknown) (no (unknown) (unknown) Assessment: (units (un known) date) unknown) (unknown) (no (unknown) (unknown) 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: Sathya Tam (units (unknown) date) [place] unknown) (unknown) (no (unknown) (unknown) Blood Pressure (units (unknown) date) 104/51 L 103/58 L unknown) (unknown) (no (unknown) (unknown) Blood products (units (unknown) date) transfused: none unknown) (unknown) (no (unknown) (unknown) Herminia Pandya PA-C (unit s (unknown) date) unknown) (unknown) (no (unknown) (unknown) Chief complaint: (units (unknown) date) Low back pain s/p unknown) TLIF (unknown) (no (unknown) (unknown) Click Yes if (units (u nknown) date) Unassisted: No unknown) (unknown) (no (unknown) (unknown) Closure Type: (units ( unknown) date) primary unknown) (unknown) (no (unknown) (unknown) Cognitive/behaviora (unit s (unknown) date) l status at unknown) discharge: at baseline, oriented (unknown) (no (unknown) (unknown) Comment: (units (unkno wn) date) unknown) (unknown) (no (unknown) (unknown) Consult to (units (unk nown) date) Occupational Therapy unknown) Evaluate + Treat (unknown) (no (unknown) (unknown) Consult to Physical (unit s (unknown) date) Therapy Evaluate + unknown) Treat (unknown) (no (unknown) (unknown) Consults: (units (unkn own) date) unknown) (unknown) (no (unknown) (unknown) : 1935 (units (unknown) date) Acct:[id number] unknown) (unknown) (no (unknown) (unknown) Pamella Ortega MD (units (unknown) date) [Primary Care unknown) Provider] (unknown) (no (unknown) (unknown) Date Patient Seen: (units (unknown) date) 03/24/22 unknown) (unknown) (no (unknown) (unknown) Date of Service: (units (unknown) date) 03/23/22 unknown) (unknown) (no (unknown) (unknown) Date of admission: (units (unknown) date) unknown) (unknown) (no (unknown) (unknown) Date of procedure: (units (unknown) date) 03/23/22 unknown) (unknown) (no (unknown) (unknown) Discharge (units (unkn own) date) Assessment + Plan unknown) (unknown) (no (unknown) (unknown) Discharge Data (units (unknown) date) unknown) (unknown) (no (unknown) (unknown) Discharge Date: (units (unknown) date) 03/24/22 unknown) (unknown) (no (unknown) (unknown) Discharge (units (unkn own) date) Diagnosis: unknown) (unknown) (no (unknown) (unknown) Discharge Plan (units (unknown) date) unknown) (unknown) (no (unknown) (unknown) Discharge Providers (unit s (unknown) date) unknown) (unknown) (no (unknown) (unknown) Discharge Summary (units (unknown) date) unknown) (unknown) (no (unknown) (unknown) Discharge orders + (units (unknown) date) Medications unknown) (unknown) (no (unknown) (unknown) Discharge provider: (unit s (unknown) date) unknown) (unknown) (no (unknown) (unknown) Edema (units (unkno wn) date) unknown) (unknown) (no (unknown) (unknown) Estimated Blood (units (unknown) date) Loss (mL): 100 unknown) (unknown) (no (unknown) (unknown) Exam Narrative: (units (unknown) date) unknown) (unknown) (no (unknown) (unknown) Exam (units (unkno wn) date) unknown) (unknown) (no (unknown) (unknown) Follow (units (unkno wn) date) up/Referrals: unknown) (unknown) (no (unknown) (unknown) Functional status (units (unknown) date) at discharge: uses unknown) cane/walker (unknown) (no (unknown) (unknown) Globus CREO MIS (units (unknown) date) screws, RIse cages unknown) (unknown) (no (unknown) (unknown) HLD (units (unkno wn) date) (hyperlipidemia) unknown) (unknown) (no (unknown) (unknown) Hct 32.6 L (units (unk nown) date) unknown) (unknown) (no (unknown) (unknown) Hgb 11.4 L (units (unk nown) date) unknown) (unknown) (no (unknown) (unknown) History of Present (units (unknown) date) Illness unknown) (unknown) (no (unknown) (unknown) History of (units (unk nown) date) hysterectomy unknown) (unknown) (no (unknown) (unknown) History of total (units (unknown) date) left hip unknown) arthroplasty (unknown) (no (unknown) (unknown) History of total (units (unknown) date) right hip unknown) arthroplasty (unknown) (no (unknown) (unknown) Hospital Course (units (unknown) date) unknown) (unknown) (no (unknown) (unknown) Hospital Course: (units (unknown) date) unknown) (unknown) (no (unknown) (unknown) Hx of bilateral (units (unknown) date) cataract extraction unknown) (unknown) (no (unknown) (unknown) Hx of dilation and (units (unknown) date) curettage unknown) (unknown) (no (unknown) (unknown) Hx of tonsillectomy (unit s (unknown) date) unknown) (unknown) (no (unknown) (unknown) Indications: (units (u nknown) date) unknown) (unknown) (no (unknown) (unknown) [facility] (units (unknown) date) [address] [place] [address] unknown) [place] [address] (unknown) (no (unknown) (unknown) Laboratory Results (units (unknown) date) - last 24 hr unknown) (unknown) (no (unknown) (unknown) Labs (units (unkno wn) date) unknown) (unknown) (no (unknown) (unknown) Labs: (units (unkno wn) date) unknown) (unknown) (no (unknown) (unknown) Medical History (units (unknown) date) (Reviewed 03/24/22 @ unknown) 18:07 by Herminia Pandya PA-C) (unknown) (no (unknown) (unknown) Narrative (units (unkn own) date) unknown) (unknown) (no (unknown) (unknown) Narrative: (units (unk nown) date) unknown) (unknown) (no (unknown) (unknown) No Action (units (unkn own) date) unknown) (unknown) (no (unknown) (unknown) Objective (units (unkn own) date) unknown) (unknown) (no (unknown) (unknown) Operative (units (unkn own) date) Date/Time/Diagnoses unknown) (unknown) (no (unknown) (unknown) Operative Notes (units (unknown) date) unknown) (unknown) (no (unknown) (unknown) Overall status at (units (unknown) date) discharge: patient unknown) is progressing back to baseline (unknown) (no (unknown) (unknown) Oxygen Delivery (units (unknown) date) Method Nasal Cannula unknown) (unknown) (no (unknown) (unknown) Oxygen Flow Rate 0 (units (unknown) date) 0 unknown) (unknown) (no (unknown) (unknown) Oxygen Flow Rate 0 (units (unknown) date) unknown) (unknown) (no (unknown) (unknown) PFSH (units (unkno wn) date) unknown) (unknown) (no (unknown) (unknown) Patient failed (units ( unknown) date) multiple unknown) conservative management with worsening pain weakness and (unknown) (no (unknown) (unknown) Patient has been (units (unknown) date) having chronic back unknown) pain and worsening lumbar radiculopathy. (unknown) (no (unknown) (unknown) Patient: (units (unkno wn) date) Tonja Connolly MR#: unknown) [id number] (unknown) (no (unknown) (unknown) Physician (units (unkn own) date) Instructions: unknown) Evaluate and Treat (unknown) (no (unknown) (unknown) Physician (units (unkn own) date) Instructions: unknown) Evaluate and treat (unknown) (no (unknown) (unknown) Plan of Treatment: (units (unknown) date) unknown) (unknown) (no (unknown) (unknown) Please see prior (units (unknown) date) HPI from today unknown) (unknown) (no (unknown) (unknown) Please see prior (units (unknown) date) exam from today unknown) (unknown) (no (unknown) (unknown) Postoperative plan (units (unknown) date) narrative: Mobilize unknown) with PT/OT.? No bending, lifting, (unknown) (no (unknown) (unknown) Prescriptions: (units (unknown) date) unknown) (unknown) (no (unknown) (unknown) Primary Care (units (u nknown) date) Provider: unknown) Pamella Ortega (unknown) (no (unknown) (unknown) Primary care (units (u nknown) date) physician: unknown) (unknown) (no (unknown) (unknown) Procedure + (units (un known) date) Clinicians unknown) (unknown) (no (unknown) (unknown) Procedure: (units (unk nown) date) unknown) (unknown) (no (unknown) (unknown) Prosthetic devices, (unit s (unknown) date) grafts, tissues, unknown) transplants, or devices: (unknown) (no (unknown) (unknown) Provider (units (unkno wn) date) unknown) (unknown) (no (unknown) (unknown) Provider: (units (unkn own) date) Herminia Pandya P.A-C unknown) (unknown) (no (unknown) (unknown) Pulse Oximetry 98 (units (unknown) date) 97 unknown) (unknown) (no (unknown) (unknown) Pulse Rate 81 78 (units (unknown) date) unknown) (unknown) (no (unknown) (unknown) Respiratory Rate 18 (unit s (unknown) date) 18 unknown) (unknown) (no (unknown) (unknown) Result Diagrams: (units (unknown) date) unknown) (unknown) (no (unknown) (unknown) Same procedure as (units (unknown) date) scheduled: Yes unknown) (unknown) (no (unknown) (unknown) Sciatica (units (unkno wn) date) unknown) (unknown) (no (unknown) (unknown) Short-term memory (units (unknown) date) loss unknown) (unknown) (no (unknown) (unknown) Signed By: (units (unk nown) date) unknown) (unknown) (no (unknown) (unknown) Smoking Status: (units (unknown) date) Former smoker unknown) (unknown) (no (unknown) (unknown) Social History (units (unknown) date) (Reviewed 03/24/22 @ unknown) 18:07 by Herminia Pandya PA-C) (unknown) (no (unknown) (unknown) Specimen(s): none (units (unknown) date) sent unknown) (unknown) (no (unknown) (unknown) Spinal stenosis (units (unknown) date) unknown) (unknown) (no (unknown) (unknown) Stable status post (units (unknown) date) L4-5, L5-S1 TLIF unknown) (unknown) (no (unknown) (unknown) Status at Discharge (unit s (unknown) date) unknown) (unknown) (no (unknown) (unknown) Summary (units (unkno wn) date) unknown) (unknown) (no (unknown) (unknown) Surgeon: Matilde Alston (units (unknown) date) unknown) (unknown) (no (unknown) (unknown) Surgical History (units (unknown) date) (Reviewed 03/24/22 @ unknown) 18:07 by Herminia Pandya PA-C) (unknown) (no (unknown) (unknown) Temperature 98.2 F (units (unknown) date) unknown) (unknown) (no (unknown) (unknown) Time Patient Seen: (units (unknown) date) 17:55 unknown) (unknown) (no (unknown) (unknown) Time of procedure: (units (unknown) date) 12:30 unknown) (unknown) (no (unknown) (unknown) Vital Signs (units (un known) date) unknown) (unknown) (no (unknown) (unknown) [Embedded Image Not (unit s (unknown) date) Available] unknown) (unknown) (no (unknown) (unknown) activity of daily (units (unknown) date) living.? After unknown) discussing risks benefits of treatment options, (unknown) (no (unknown) (unknown) alcohol intake: (units (unknown) date) current unknown) (unknown) (no (unknown) (unknown) atorvastatin 10 mg (units (unknown) date) Tablet unknown) (unknown) (no (unknown) (unknown) diphenhydramine-jewel (unit s (unknown) date) taminophen unknown) [Acetaminophen PM] 25-500 mg Tablet (unknown) (no (unknown) (unknown) furosemide 20 mg (units (unknown) date) Tablet unknown) (unknown) (no (unknown) (unknown) gabapentin 300 mg (units (unknown) date) Capsule unknown) (unknown) (no (unknown) (unknown) household members: (units (unknown) date) spouse unknown) (unknown) (no (unknown) (unknown) numbness in her (units (unknown) date) lower extremity.? unknown) Patient has been having difficulty performing (unknown) (no (unknown) (unknown) patient elected (units (unknown) date) proceed with unknown) surgery. (unknown) (no (unknown) (unknown) twisting x6 weeks? (units (unknown) date) unknown) Result panel 14 (unknown) (no (unknown) (unknown) (no value) (units (unk nown) date) unknown) (unknown) (no (unknown) (unknown) (past 8 hours): (units (unknown) date) unknown) (unknown) (no (unknown) (unknown) -DC home today once (units (unknown) date) cleared by PT with unknown) her daughter, who is a physical therapist (unknown) (no (unknown) (unknown) -Mobilize with (units (unknown) date) PT/OT.? No bending, unknown) lifting, twisting x6 weeks? (unknown) (no (unknown) (unknown) -continue with (units (unknown) date) multimodal pain unknown) management (unknown) (no (unknown) (unknown) -follow-up with (unit s (unknown) date) [place] in 10-14 days unknown) (unknown) (no (unknown) (unknown) [id number] (units (unkno wn) date) unknown) (unknown) (no (unknown) (unknown) 07:22 (units (unkno wn) date) unknown) (unknown) (no (unknown) (unknown) 03/23/22 09:20 (units (unknown) date) unknown) (unknown) (no (unknown) (unknown) 03/23/22 16:51 (units (unknown) date) unknown) (unknown) (no (unknown) (unknown) 03/24/22 07:22 (units (unknown) date) unknown) (unknown) (no (unknown) (unknown) 03/24/22 (units (unkno wn) date) unknown) (unknown) (no (unknown) (unknown) 1 tab PO BEDTIME (units (unknown) date) unknown) (unknown) (no (unknown) (unknown) 1. L4-5, L5-S1 (units (unknown) date) Postero-lateral and unknown) posterior interbody fusion (unknown) (no (unknown) (unknown) 1. L4-5, L5-S1 (units (unknown) date) spondylolisthesis unknown) (unknown) (no (unknown) (unknown) 10 mg PO BEDTIME (units (unknown) date) unknown) (unknown) (no (unknown) (unknown) 11:16 03/24/22 (units (unknown) date) unknown) (unknown) (no (unknown) (unknown) 15:37 03/24/22 (units (unknown) date) unknown) (unknown) (no (unknown) (unknown) 15:44 (units (unkno wn) date) unknown) (unknown) (no (unknown) (unknown) 2. L4-5, L5-S1 (units (unknown) date) interbody cage unknown) placement. (unknown) (no (unknown) (unknown) 2. L4-5, L5-S1 (units (unknown) date) spinal stenosis with unknown) neurogenic claudication (unknown) (no (unknown) (unknown) 20 mg PO QAM (units (u nknown) date) unknown) (unknown) (no (unknown) (unknown) 3. L4-5, L5-S1 (units (unknown) date) decompressive unknown) laminectomy with bilateral facetecomies (unknown) (no (unknown) (unknown) 300 mg PO BEDTIME (units (unknown) date) unknown) (unknown) (no (unknown) (unknown) 4. L4-5, L5-S1 (units (unknown) date) Posterior segmental unknown) instrumentation (unknown) (no (unknown) (unknown) 5. [place] of bone (units (unknown) date) marrow from iliac unknown) crest (unknown) (no (unknown) (unknown) 6. Utilization of (units (unknown) date) microsurgical unknown) technique and operating microscope (unknown) (no (unknown) (unknown) 7. Utilization of (units (unknown) date) robotic assisted unknown) navigation (unknown) (no (unknown) (unknown) Age/Sex: 86 / F (units (unknown) date) unknown) (unknown) (no (unknown) (unknown) Anesthesia Type: (units (unknown) date) General unknown) (unknown) (no (unknown) (unknown) Pamella Ortega MD (units (unknown) date) unknown) (unknown) (no (unknown) (unknown) Applied: catheter (units (unknown) date) unknown) (unknown) (no (unknown) (unknown) Assessment and Plan (unit s (unknown) date) unknown) (unknown) (no (unknown) (unknown) Assessment: (units (un known) date) unknown) (unknown) (no (unknown) (unknown) 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: Sathya Tam (units (unknown) date) [place] unknown) (unknown) (no (unknown) (unknown) Blood Pressure (units (unknown) date) 104/51 L 103/58 L unknown) (unknown) (no (unknown) (unknown) Blood products (units (unknown) date) transfused: none unknown) (unknown) (no (unknown) (unknown) Herminia Pandya PA-C (unit s (unknown) date) unknown) (unknown) (no (unknown) (unknown) Chief complaint: (units (unknown) date) Low back pain s/p unknown) TLIF (unknown) (no (unknown) (unknown) Click Yes if (units (u nknown) date) Unassisted: No unknown) (unknown) (no (unknown) (unknown) Closure Type: (units ( unknown) date) primary unknown) (unknown) (no (unknown) (unknown) Cognitive/behaviora (unit s (unknown) date) l status at unknown) discharge: at baseline, oriented (unknown) (no (unknown) (unknown) Comment: (units (unkno wn) date) unknown) (unknown) (no (unknown) (unknown) Consult to (units (unk nown) date) Occupational Therapy unknown) Evaluate + Treat (unknown) (no (unknown) (unknown) Consult to Physical (unit s (unknown) date) Therapy Evaluate + unknown) Treat (unknown) (no (unknown) (unknown) Consults: (units (unkn own) date) unknown) (unknown) (no (unknown) (unknown) : 1935 (units (unknown) date) Acct:[id number] unknown) (unknown) (no (unknown) (unknown) Pamella Ortega MD (units (unknown) date) [Primary Care unknown) Provider] (unknown) (no (unknown) (unknown) Date Patient Seen: (units (unknown) date) 03/24/22 unknown) (unknown) (no (unknown) (unknown) Date of Service: (units (unknown) date) 03/23/22 unknown) (unknown) (no (unknown) (unknown) Date of admission: (units (unknown) date) unknown) (unknown) (no (unknown) (unknown) Date of procedure: (units (unknown) date) 03/23/22 unknown) (unknown) (no (unknown) (unknown) Discharge (units (unkn own) date) Assessment + Plan unknown) (unknown) (no (unknown) (unknown) Discharge Data (units (unknown) date) unknown) (unknown) (no (unknown) (unknown) Discharge Date: (units (unknown) date) 03/24/22 unknown) (unknown) (no (unknown) (unknown) Discharge (units (unkn own) date) Diagnosis: unknown) (unknown) (no (unknown) (unknown) Discharge Plan (units (unknown) date) unknown) (unknown) (no (unknown) (unknown) Discharge Providers (unit s (unknown) date) unknown) (unknown) (no (unknown) (unknown) Discharge Summary (units (unknown) date) unknown) (unknown) (no (unknown) (unknown) Discharge orders + (units (unknown) date) Medications unknown) (unknown) (no (unknown) (unknown) Discharge provider: (unit s (unknown) date) unknown) (unknown) (no (unknown) (unknown) Edema (units (unkno wn) date) unknown) (unknown) (no (unknown) (unknown) Estimated Blood (units (unknown) date) Loss (mL): 100 unknown) (unknown) (no (unknown) (unknown) Exam Narrative: (units (unknown) date) unknown) (unknown) (no (unknown) (unknown) Exam (units (unkno wn) date) unknown) (unknown) (no (unknown) (unknown) Follow (units (unkno wn) date) up/Referrals: unknown) (unknown) (no (unknown) (unknown) Functional status (units (unknown) date) at discharge: uses unknown) cane/walker (unknown) (no (unknown) (unknown) Globus CREO MIS (units (unknown) date) screws, RIse cages unknown) (unknown) (no (unknown) (unknown) HLD (units (unkno wn) date) (hyperlipidemia) unknown) (unknown) (no (unknown) (unknown) Hct 32.6 L (units (unk nown) date) unknown) (unknown) (no (unknown) (unknown) Hgb 11.4 L (units (unk nown) date) unknown) (unknown) (no (unknown) (unknown) History of Present (units (unknown) date) Illness unknown) (unknown) (no (unknown) (unknown) History of (units (unk nown) date) hysterectomy unknown) (unknown) (no (unknown) (unknown) History of total (units (unknown) date) left hip unknown) arthroplasty (unknown) (no (unknown) (unknown) History of total (units (unknown) date) right hip unknown) arthroplasty (unknown) (no (unknown) (unknown) Hospital Course (units (unknown) date) unknown) (unknown) (no (unknown) (unknown) Hospital Course: (units (unknown) date) unknown) (unknown) (no (unknown) (unknown) Hx of bilateral (units (unknown) date) cataract extraction unknown) (unknown) (no (unknown) (unknown) Hx of dilation and (units (unknown) date) curettage unknown) (unknown) (no (unknown) (unknown) Hx of tonsillectomy (unit s (unknown) date) unknown) (unknown) (no (unknown) (unknown) Indications: (units (u nknown) date) unknown) (unknown) (no (unknown) (unknown) [facility] (units (unknown) date) [address] [place] [address] Street unknown) [place] [address] (unknown) (no (unknown) (unknown) Laboratory Results (units (unknown) date) - last 24 hr unknown) (unknown) (no (unknown) (unknown) Labs (units (unkno wn) date) unknown) (unknown) (no (unknown) (unknown) Labs: (units (unkno wn) date) unknown) (unknown) (no (unknown) (unknown) Medical History (units (unknown) date) (Reviewed 03/24/22 @ unknown) 18:07 by Herminia Pandya PA-C) (unknown) (no (unknown) (unknown) Narrative (units (unkn own) date) unknown) (unknown) (no (unknown) (unknown) Narrative: (units (unk nown) date) unknown) (unknown) (no (unknown) (unknown) No Action (units (unkn own) date) unknown) (unknown) (no (unknown) (unknown) Objective (units (unkn own) date) unknown) (unknown) (no (unknown) (unknown) Operative (units (unkn own) date) Date/Time/Diagnoses unknown) (unknown) (no (unknown) (unknown) Operative Notes (units (unknown) date) unknown) (unknown) (no (unknown) (unknown) Overall status at (units (unknown) date) discharge: patient unknown) is progressing back to baseline (unknown) (no (unknown) (unknown) Oxygen Delivery (units (unknown) date) Method Nasal Cannula unknown) (unknown) (no (unknown) (unknown) Oxygen Flow Rate 0 (units (unknown) date) 0 unknown) (unknown) (no (unknown) (unknown) Oxygen Flow Rate 0 (units (unknown) date) unknown) (unknown) (no (unknown) (unknown) PFSH (units (unkno wn) date) unknown) (unknown) (no (unknown) (unknown) Patient (units (unkno wn) date) Disposition: Home unknown) (unknown) (no (unknown) (unknown) Patient failed (units ( unknown) date) multiple unknown) conservative management with worsening pain weakness and (unknown) (no (unknown) (unknown) Patient has been (units (unknown) date) having chronic back unknown) pain and worsening lumbar radiculopathy. (unknown) (no (unknown) (unknown) Patient: (units (unkno wn) date) Tonja Connolly MR#: unknown) M00 (unknown) (no (unknown) (unknown) Physician (units (unkn own) date) Instructions: unknown) Evaluate and Treat (unknown) (no (unknown) (unknown) Physician (units (unkn own) date) Instructions: unknown) Evaluate and treat (unknown) (no (unknown) (unknown) Plan of Treatment: (units (unknown) date) unknown) (unknown) (no (unknown) (unknown) Please see prior (units (unknown) date) HPI from today unknown) (unknown) (no (unknown) (unknown) Please see prior (units (unknown) date) exam from today unknown) (unknown) (no (unknown) (unknown) Prescriptions: (units (unknown) date) unknown) (unknown) (no (unknown) (unknown) Primary Care (units (u nknown) date) Provider: unknown) Pamella Ortega (unknown) (no (unknown) (unknown) Primary care (units (u nknown) date) physician: unknown) (unknown) (no (unknown) (unknown) Procedure + (units (un known) date) Clinicians unknown) (unknown) (no (unknown) (unknown) Procedure: (units (unk nown) date) unknown) (unknown) (no (unknown) (unknown) Prosthetic devices, (unit s (unknown) date) grafts, tissues, unknown) transplants, or devices: (unknown) (no (unknown) (unknown) Provider (units (unkno wn) date) unknown) (unknown) (no (unknown) (unknown) Provider: (units (unkn own) date) Herminia Pandya P.A-C unknown) (unknown) (no (unknown) (unknown) Pulse Oximetry 98 (units (unknown) date) 97 unknown) (unknown) (no (unknown) (unknown) Pulse Rate 81 78 (units (unknown) date) unknown) (unknown) (no (unknown) (unknown) Respiratory Rate 18 (unit s (unknown) date) 18 unknown) (unknown) (no (unknown) (unknown) Result Diagrams: (units (unknown) date) unknown) (unknown) (no (unknown) (unknown) Same procedure as (units (unknown) date) scheduled: Yes unknown) (unknown) (no (unknown) (unknown) Sciatica (units (unkno wn) date) unknown) (unknown) (no (unknown) (unknown) Short-term memory (units (unknown) date) loss unknown) (unknown) (no (unknown) (unknown) Signed By: (units (unk nown) date) unknown) (unknown) (no (unknown) (unknown) Smoking Status: (units (unknown) date) Former smoker unknown) (unknown) (no (unknown) (unknown) Social History (units (unknown) date) (Reviewed 03/24/22 @ unknown) 18:07 by Herminia Pandya PA-C) (unknown) (no (unknown) (unknown) Specimen(s): none (units (unknown) date) sent unknown) (unknown) (no (unknown) (unknown) Spinal stenosis (units (unknown) date) unknown) (unknown) (no (unknown) (unknown) Stable status post (units (unknown) date) L4-5, L5-S1 TLIF unknown) (unknown) (no (unknown) (unknown) Status at Discharge (unit s (unknown) date) unknown) (unknown) (no (unknown) (unknown) Summary (units (unkno wn) date) unknown) (unknown) (no (unknown) (unknown) Surgeon: Matilde Alston (units (unknown) date) unknown) (unknown) (no (unknown) (unknown) Surgical History (units (unknown) date) (Reviewed 03/24/22 @ unknown) 18:07 by Herminia Pandya PA-C) (unknown) (no (unknown) (unknown) Temperature 98.2 F (units (unknown) date) unknown) (unknown) (no (unknown) (unknown) Time Patient Seen: (units (unknown) date) 17:55 unknown) (unknown) (no (unknown) (unknown) Time of procedure: (units (unknown) date) 12:30 unknown) (unknown) (no (unknown) (unknown) Vital Signs (units (un known) date) unknown) (unknown) (no (unknown) (unknown) [Embedded Image Not (unit s (unknown) date) Available] unknown) (unknown) (no (unknown) (unknown) activity of daily (units (unknown) date) living.? After unknown) discussing risks benefits of treatment options, (unknown) (no (unknown) (unknown) alcohol intake: (units (unknown) date) current unknown) (unknown) (no (unknown) (unknown) atorvastatin 10 mg (units (unknown) date) Tablet unknown) (unknown) (no (unknown) (unknown) diphenhydramine-jewel (unit s (unknown) date) taminophen unknown) [Acetaminophen PM] 25-500 mg Tablet (unknown) (no (unknown) (unknown) furosemide 20 mg (units (unknown) date) Tablet unknown) (unknown) (no (unknown) (unknown) gabapentin 300 mg (units (unknown) date) Capsule unknown) (unknown) (no (unknown) (unknown) household members: (units (unknown) date) spouse unknown) (unknown) (no (unknown) (unknown) numbness in her (units (unknown) date) lower extremity.? unknown) Patient has been having difficulty performing (unknown) (no (unknown) (unknown) patient elected (units (unknown) date) proceed with unknown) surgery. Result panel 15 (unknown) (no (unknown) (unknown) (no value) (units (unk nown) date) unknown) (unknown) (no (unknown) (unknown) (can use 25mg of (units (unknown) date) OTC Benadryl for unknown) insomnia instead) (unknown) (no (unknown) (unknown) (past 8 hours): (units (unknown) date) unknown) (unknown) (no (unknown) (unknown) Call the office (units (unknown) date) if you have chest unknown) pain, shortness of breath, significant (unknown) (no (unknown) (unknown) -As needed (units (unk nown) date) medications: unknown) (unknown) (no (unknown) (unknown) -Continue with home (unit s (unknown) date) exercises as unknown) directed by your physical therapist. (unknown) (no (unknown) (unknown) -DC home today once (units (unknown) date) cleared by PT with unknown) her daughter, who is a physical therapist (unknown) (no (unknown) (unknown) -Ducolax and /or (units (unknown) date) MiraLax as needed unknown) for constipation from narcotic pain (unknown) (no (unknown) (unknown) -Follow-up with (units (unknown) date) your surgeon 6 weeks unknown) postoperatively. (unknown) (no (unknown) (unknown) -Follow-up with (units (unknown) date) your surgeon or PA unknown) in the office in 10-14 days after surgery. (unknown) (no (unknown) (unknown) -Hydrocodone-acetam (unit s (unknown) date) inophen 5/325 mg unknown) take 1 tablet every 4 hours as needed for (unknown) (no (unknown) (unknown) -Ice your incision (units (unknown) date) as needed for unknown) pain/inflammation/sw elling. Protect your skin (unknown) (no (unknown) (unknown) -Incentive (units (unk nown) date) Spirometer unknown) (breathing device from hospital): 5-10xs every hour while (unknown) (no (unknown) (unknown) -Keep dressing in (units (unknown) date) place until unknown) postoperative follow-up office visit. (unknown) (no (unknown) (unknown) -Limit bending, (units (unknown) date) lifting, twisting x6 unknown) weeks. No deep bending (more than 90 (unknown) (no (unknown) (unknown) -Mobilize with (units (unknown) date) PT/OT.? No bending, unknown) lifting, twisting x6 weeks? (unknown) (no (unknown) (unknown) -OTC Tylenol (units (u nknown) date) (acetaminophen) unknown) 325mg 1 tablet every 4 hours as needed for (unknown) (no (unknown) (unknown) -Okay to shower. (units (unknown) date) Keep wound out of unknown) direct water stream. Can use PressNSeal (unknown) (no (unknown) (unknown) -Pepcid AC as (units ( unknown) date) needed for stomach unknown) upset. (unknown) (no (unknown) (unknown) -Please call the (units (unknown) date) office if dressing unknown) becomes wet, soiled, or saturated. (unknown) (no (unknown) (unknown) -Vistaril (units (unkn own) date) (hydroxyine) 25mg 1 unknown) tab every 4 hours as needed for (unknown) (no (unknown) (unknown) -Walk frequently. (units (unknown) date) unknown) (unknown) (no (unknown) (unknown) -Weight-bearing as (units (unknown) date) tolerated. Use front unknown) wheeled walker, and progress to cane (unknown) (no (unknown) (unknown) -continue with (units (unknown) date) multimodal pain unknown) management (unknown) (no (unknown) (unknown) -follow-up with (unit s (unknown) date) [place] in 10-14 days unknown) (unknown) (no (unknown) (unknown) [id number] (units (unkno wn) date) unknown) (unknown) (no (unknown) (unknown) 07:22 (units (unkno wn) date) unknown) (unknown) (no (unknown) (unknown) 03/23/22 09:20 (units (unknown) date) unknown) (unknown) (no (unknown) (unknown) 03/23/22 16:51 (units (unknown) date) unknown) (unknown) (no (unknown) (unknown) 03/24/22 07:22 (units (unknown) date) unknown) (unknown) (no (unknown) (unknown) 03/24/22 1816 (units ( unknown) date) unknown) (unknown) (no (unknown) (unknown) 03/24/22 (units (unkno wn) date) unknown) (unknown) (no (unknown) (unknown) 1 tab PO BEDTIME (units (unknown) date) Qty: 30 0RF unknown) (unknown) (no (unknown) (unknown) 1 tab PO Q4HR PRN (units (unknown) date) (Reason: Pain, unknown) Moderate (4-6)) Qty: 42 0RF (unknown) (no (unknown) (unknown) 1. L4-5, L5-S1 (units (unknown) date) Postero-lateral and unknown) posterior interbody fusion (unknown) (no (unknown) (unknown) 1. L4-5, L5-S1 (units (unknown) date) spondylolisthesis unknown) (unknown) (no (unknown) (unknown) 10 mg PO BEDTIME (units (unknown) date) unknown) (unknown) (no (unknown) (unknown) 100 mg PO BID PRN (units (unknown) date) (Reason: unknown) Constipation from narcotic pain meds) Qty: 30 0RF (unknown) (no (unknown) (unknown) 11:16 03/24/22 (units (unknown) date) unknown) (unknown) (no (unknown) (unknown) 15:37 03/24/22 (units (unknown) date) unknown) (unknown) (no (unknown) (unknown) 15:44 (units (unkno wn) date) unknown) (unknown) (no (unknown) (unknown) 17.2 mg PO BEDTIME (units (unknown) date) PRN (Reason: unknown) constipation) Qty: 14 0RF (unknown) (no (unknown) (unknown) 2. L4-5, L5-S1 (units (unknown) date) interbody cage unknown) placement. (unknown) (no (unknown) (unknown) 2. L4-5, L5-S1 (units (unknown) date) spinal stenosis with unknown) neurogenic claudication (unknown) (no (unknown) (unknown) 20 mg PO QAM (units (u nknown) date) unknown) (unknown) (no (unknown) (unknown) 25 mg PO Q4HR PRN (units (unknown) date) (Reason: Muscle unknown) spasms/pain/nausea) Qty: 20 0RF (unknown) (no (unknown) (unknown) 3)) Qty: 90 0RF (units (unknown) date) unknown) (unknown) (no (unknown) (unknown) 3. L4-5, L5-S1 (units (unknown) date) decompressive unknown) laminectomy with bilateral facetecomies (unknown) (no (unknown) (unknown) 300 mg PO BEDTIME (units (unknown) date) unknown) (unknown) (no (unknown) (unknown) 325 mg PO Q4H MDD (units (unknown) date) Max 3000mg/day from unknown) all source PRN (Reason: Pain, Mild (1 (unknown) (no (unknown) (unknown) 4. L4-5, L5-S1 (units (unknown) date) Posterior segmental unknown) instrumentation (unknown) (no (unknown) (unknown) 5. [place] of bone (units (unknown) date) marrow from iliac unknown) crest (unknown) (no (unknown) (unknown) 6. Utilization of (units (unknown) date) microsurgical unknown) technique and operating microscope (unknown) (no (unknown) (unknown) 7. Utilization of (units (unknown) date) robotic assisted unknown) navigation (unknown) (no (unknown) (unknown) Activities: (units (un known) date) unknown) (unknown) (no (unknown) (unknown) Age/Sex: 86 / F (units (unknown) date) unknown) (unknown) (no (unknown) (unknown) Anesthesia Type: (units (unknown) date) General unknown) (unknown) (no (unknown) (unknown) Pamella Ortega MD (units (unknown) date) unknown) (unknown) (no (unknown) (unknown) Applied: catheter (units (unknown) date) unknown) (unknown) (no (unknown) (unknown) Assessment and Plan (unit s (unknown) date) unknown) (unknown) (no (unknown) (unknown) Assessment: (units (un known) date) unknown) (unknown) (no (unknown) (unknown) 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: Sathya Tam (units (unknown) date) [place] unknown) (unknown) (no (unknown) (unknown) Blood Pressure (units (unknown) date) 104/51 L 103/58 L unknown) (unknown) (no (unknown) (unknown) Blood products (units (unknown) date) transfused: none unknown) (unknown) (no (unknown) (unknown) Herminia Pandya PA-C (unit s (unknown) date) unknown) (unknown) (no (unknown) (unknown) Chief complaint: (units (unknown) date) Low back pain s/p unknown) TLIF (unknown) (no (unknown) (unknown) Click Yes if (units (u nknown) date) Unassisted: No unknown) (unknown) (no (unknown) (unknown) Closure Type: (units ( unknown) date) primary unknown) (unknown) (no (unknown) (unknown) Cognitive/behaviora (unit s (unknown) date) l status at unknown) discharge: at baseline, oriented (unknown) (no (unknown) (unknown) Comment: (units (unkno wn) date) unknown) (unknown) (no (unknown) (unknown) Consult to (units (unk nown) date) Occupational Therapy unknown) Evaluate + Treat (unknown) (no (unknown) (unknown) Consult to Physical (unit s (unknown) date) Therapy Evaluate + unknown) Treat (unknown) (no (unknown) (unknown) Consults: (units (unkn own) date) unknown) (unknown) (no (unknown) (unknown) Continued (units (unkn own) date) unknown) (unknown) (no (unknown) (unknown) : 1935 (units (unknown) date) Acct:[id number] unknown) (unknown) (no (unknown) (unknown) Pamella Ortega MD (units (unknown) date) [Primary Care unknown) Provider] (unknown) (no (unknown) (unknown) Date Patient Seen: (units (unknown) date) 03/24/22 unknown) (unknown) (no (unknown) (unknown) Date of Service: (units (unknown) date) 03/23/22 unknown) (unknown) (no (unknown) (unknown) Date of admission: (units (unknown) date) unknown) (unknown) (no (unknown) (unknown) Date of procedure: (units (unknown) date) 03/23/22 unknown) (unknown) (no (unknown) (unknown) Diet/Activity/Treat (unit s (unknown) date) ments unknown) (unknown) (no (unknown) (unknown) Diet: Diet as (units ( unknown) date) Tolerated unknown) (unknown) (no (unknown) (unknown) Discharge (units (unkn own) date) Assessment + Plan unknown) (unknown) (no (unknown) (unknown) Discharge Data (units (unknown) date) unknown) (unknown) (no (unknown) (unknown) Discharge Date: (units (unknown) date) 03/24/22 unknown) (unknown) (no (unknown) (unknown) Discharge (units (unkn own) date) Diagnosis: unknown) (unknown) (no (unknown) (unknown) Discharge Plan (units (unknown) date) unknown) (unknown) (no (unknown) (unknown) Discharge Providers (unit s (unknown) date) unknown) (unknown) (no (unknown) (unknown) Discharge Summary (units (unknown) date) unknown) (unknown) (no (unknown) (unknown) Discharge orders + (units (unknown) date) Medications unknown) (unknown) (no (unknown) (unknown) Discharge provider: (unit s (unknown) date) unknown) (unknown) (no (unknown) (unknown) Dressing/Wound (units (unknown) date) care: unknown) (unknown) (no (unknown) (unknown) Edema (units (unkno wn) date) unknown) (unknown) (no (unknown) (unknown) Estimated Blood (units (unknown) date) Loss (mL): 100 unknown) (unknown) (no (unknown) (unknown) Exam Narrative: (units (unknown) date) unknown) (unknown) (no (unknown) (unknown) Exam (units (unkno wn) date) unknown) (unknown) (no (unknown) (unknown) Follow (units (unkno wn) date) up/Referrals: unknown) (unknown) (no (unknown) (unknown) Follow-up: (units (unk nown) date) unknown) (unknown) (no (unknown) (unknown) Functional status (units (unknown) date) at discharge: uses unknown) cane/walker (unknown) (no (unknown) (unknown) Globus CREO MIS (units (unknown) date) screws, RIse cages unknown) (unknown) (no (unknown) (unknown) HLD (units (unkno wn) date) (hyperlipidemia) unknown) (unknown) (no (unknown) (unknown) Hct 32.6 L (units (unk nown) date) unknown) (unknown) (no (unknown) (unknown) Hgb 11.4 L (units (unk nown) date) unknown) (unknown) (no (unknown) (unknown) History of Present (units (unknown) date) Illness unknown) (unknown) (no (unknown) (unknown) History of (units (unk nown) date) hysterectomy unknown) (unknown) (no (unknown) (unknown) History of total (units (unknown) date) left hip unknown) arthroplasty (unknown) (no (unknown) (unknown) History of total (units (unknown) date) right hip unknown) arthroplasty (unknown) (no (unknown) (unknown) Hospital Course (units (unknown) date) unknown) (unknown) (no (unknown) (unknown) Hospital Course: (units (unknown) date) unknown) (unknown) (no (unknown) (unknown) Hx of bilateral (units (unknown) date) cataract extraction unknown) (unknown) (no (unknown) (unknown) Hx of dilation and (units (unknown) date) curettage unknown) (unknown) (no (unknown) (unknown) Hx of tonsillectomy (unit s (unknown) date) unknown) (unknown) (no (unknown) (unknown) Indications: (units (u nknown) date) unknown) (unknown) (no (unknown) (unknown) Instructions: DI (units (unknown) date) for Prescription unknown) Opioid Use, DI for Transforaminal Lumbar (unknown) (no (unknown) (unknown) Interbody Fusion (units (unknown) date) unknown) (unknown) (no (unknown) (unknown) [facility] (units (unknown) date) [address] unknown) [place] [address] (unknown) (no (unknown) (unknown) Laboratory Results (units (unknown) date) - last 24 hr unknown) (unknown) (no (unknown) (unknown) Labs (units (unkno wn) date) unknown) (unknown) (no (unknown) (unknown) Labs: (units (unkno wn) date) unknown) (unknown) (no (unknown) (unknown) Matilde Alston MD (units (u nknown) date) [Physician] - (10-14 unknown) days for postoperative visit) (unknown) (no (unknown) (unknown) Max 3000 mg of (units (unknown) date) acetaminophen per unknown) day from all sources (unknown) (no (unknown) (unknown) Medical History (units (unknown) date) (Reviewed 03/24/22 @ unknown) 18:07 by Herminia Pandya PA-C) (unknown) (no (unknown) (unknown) Narrative (units (unkn own) date) unknown) (unknown) (no (unknown) (unknown) Narrative: (units (unk nown) date) unknown) (unknown) (no (unknown) (unknown) New (units (unkno wn) date) unknown) (unknown) (no (unknown) (unknown) Objective (units (unkn own) date) unknown) (unknown) (no (unknown) (unknown) Operative (units (unkn own) date) Date/Time/Diagnoses unknown) (unknown) (no (unknown) (unknown) Operative Notes (units (unknown) date) unknown) (unknown) (no (unknown) (unknown) Other treatments: (units (unknown) date) Medications: unknown) (unknown) (no (unknown) (unknown) Overall status at (units (unknown) date) discharge: patient unknown) is progressing back to baseline (unknown) (no (unknown) (unknown) Oxygen Delivery (units (unknown) date) Method Nasal Cannula unknown) (unknown) (no (unknown) (unknown) Oxygen Flow Rate 0 (units (unknown) date) 0 unknown) (unknown) (no (unknown) (unknown) Oxygen Flow Rate 0 (units (unknown) date) unknown) (unknown) (no (unknown) (unknown) PFSH (units (unkno wn) date) unknown) (unknown) (no (unknown) (unknown) Patient (units (unkno wn) date) Disposition: Home unknown) (unknown) (no (unknown) (unknown) Patient failed (units ( unknown) date) multiple unknown) conservative management with worsening pain weakness and (unknown) (no (unknown) (unknown) Patient has been (units (unknown) date) having chronic back unknown) pain and worsening lumbar radiculopathy. (unknown) (no (unknown) (unknown) Patient: (units (unkno wn) date) MohsenTonja Rafita MR#: unknown) M00 (unknown) (no (unknown) (unknown) Physician (units (unkn own) date) Instructions: unknown) Evaluate and Treat (unknown) (no (unknown) (unknown) Physician (units (unkn own) date) Instructions: unknown) Evaluate and treat (unknown) (no (unknown) (unknown) Plan of Treatment: (units (unknown) date) unknown) (unknown) (no (unknown) (unknown) Please see prior (units (unknown) date) HPI from today unknown) (unknown) (no (unknown) (unknown) Please see prior (units (unknown) date) exam from today unknown) (unknown) (no (unknown) (unknown) Prescriptions: (units (unknown) date) unknown) (unknown) (no (unknown) (unknown) Primary Care (units (u nknown) date) Provider: unknown) Pamella Ortega (unknown) (no (unknown) (unknown) Primary care (units (u nknown) date) physician: unknown) (unknown) (no (unknown) (unknown) Procedure + (units (un known) date) Clinicians unknown) (unknown) (no (unknown) (unknown) Procedure: (units (unk nown) date) unknown) (unknown) (no (unknown) (unknown) Prosthetic devices, (unit s (unknown) date) grafts, tissues, unknown) transplants, or devices: (unknown) (no (unknown) (unknown) Provider (units (unkno wn) date) unknown) (unknown) (no (unknown) (unknown) Provider: (units (unkn own) date) Herminia Pandya P.A-C unknown) (unknown) (no (unknown) (unknown) Pulse Oximetry 98 (units (unknown) date) 97 unknown) (unknown) (no (unknown) (unknown) Pulse Rate 81 78 (units (unknown) date) unknown) (unknown) (no (unknown) (unknown) Report to your (units (unknown) date) healthcare provider unknown) any signs of infection, such as:: chills, (unknown) (no (unknown) (unknown) Respiratory Rate 18 (unit s (unknown) date) 18 unknown) (unknown) (no (unknown) (unknown) Result Diagrams: (units (unknown) date) unknown) (unknown) (no (unknown) (unknown) Rx Instructions: (units (unknown) date) unknown) (unknown) (no (unknown) (unknown) Same procedure as (units (unknown) date) scheduled: Yes unknown) (unknown) (no (unknown) (unknown) Sciatica (units (unkno wn) date) unknown) (unknown) (no (unknown) (unknown) Short-term memory (units (unknown) date) loss unknown) (unknown) (no (unknown) (unknown) Signed (units (unkno wn) date) By:<Electronically unknown) signed by Herminia Pandya> (unknown) (no (unknown) (unknown) [facility] (units (unknown) date) Orthopedics: unknown) [phone] (unknown) (no (unknown) (unknown) Skin/Wound/Dressing (unit s (unknown) date) Care unknown) (unknown) (no (unknown) (unknown) Smoking Status: (units (unknown) date) Former smoker unknown) (unknown) (no (unknown) (unknown) Social History (units (unknown) date) (Reviewed 03/24/22 @ unknown) 18:07 by Herminia Pandya PA-C) (unknown) (no (unknown) (unknown) Specimen(s): none (units (unknown) date) sent unknown) (unknown) (no (unknown) (unknown) Spinal stenosis (units (unknown) date) unknown) (unknown) (no (unknown) (unknown) Stable status post (units (unknown) date) L4-5, L5-S1 TLIF unknown) (unknown) (no (unknown) (unknown) Stand Alone Forms: (units (unknown) date) Surgery Discharge unknown) (unknown) (no (unknown) (unknown) Status at Discharge (unit s (unknown) date) unknown) (unknown) (no (unknown) (unknown) Summary (units (unkno wn) date) unknown) (unknown) (no (unknown) (unknown) Surgeon: Matilde Alston (units (unknown) date) unknown) (unknown) (no (unknown) (unknown) Surgical History (units (unknown) date) (Reviewed 03/24/22 @ unknown) 18:07 by Herminia Pandya PA-C) (unknown) (no (unknown) (unknown) Temperature 98.2 F (units (unknown) date) unknown) (unknown) (no (unknown) (unknown) Time Patient Seen: (units (unknown) date) 17:55 unknown) (unknown) (no (unknown) (unknown) Time of procedure: (units (unknown) date) 12:30 unknown) (unknown) (no (unknown) (unknown) Visit (units (unkno wn) date) Report/Discharge unknown) Packet (unknown) (no (unknown) (unknown) Vital Signs (units (un known) date) unknown) (unknown) (no (unknown) (unknown) [Embedded Image Not (unit s (unknown) date) Available] unknown) (unknown) (no (unknown) (unknown) acetaminophen 325 (units (unknown) date) mg Tablet unknown) (unknown) (no (unknown) (unknown) activity of daily (units (unknown) date) living.? After unknown) discussing risks benefits of treatment options, (unknown) (no (unknown) (unknown) alcohol intake: (units (unknown) date) current unknown) (unknown) (no (unknown) (unknown) atorvastatin 10 mg (units (unknown) date) Tablet unknown) (unknown) (no (unknown) (unknown) awake for the first (unit s (unknown) date) 1-2 weeks. unknown) (unknown) (no (unknown) (unknown) degrees) or (units (un known) date) twisting at the unknown) waist. No lifting > 20 pounds. (unknown) (no (unknown) (unknown) diphenhydramine-jewel (unit s (unknown) date) taminophen unknown) [Acetaminophen PM] 25-500 mg Tablet (unknown) (no (unknown) (unknown) docusate sodium 100 (unit s (unknown) date) mg Capsule unknown) (unknown) (no (unknown) (unknown) fever, night (units (u nknown) date) sweats, unusual unknown) drainage and unusual redness (unknown) (no (unknown) (unknown) furosemide 20 mg (units (unknown) date) Tablet unknown) (unknown) (no (unknown) (unknown) gabapentin 300 mg (units (unknown) date) Capsule unknown) (unknown) (no (unknown) (unknown) household members: (units (unknown) date) spouse unknown) (unknown) (no (unknown) (unknown) hydrocodone-acetami (unit s (unknown) date) nophen 5-325 mg unknown) Tablet (unknown) (no (unknown) (unknown) hydroxyzine pamoate (unit s (unknown) date) 25 mg Capsule unknown) (unknown) (no (unknown) (unknown) medications. (units (u nknown) date) unknown) (unknown) (no (unknown) (unknown) moderate-severe (units (unknown) date) pain (narcotic pain unknown) medication). (unknown) (no (unknown) (unknown) numbness in her (units (unknown) date) lower extremity.? unknown) Patient has been having difficulty performing (unknown) (no (unknown) (unknown) pain/fever. Max (units (unknown) date) 3,000mg per day. unknown) (unknown) (no (unknown) (unknown) patient elected (units (unknown) date) proceed with unknown) surgery. (unknown) (no (unknown) (unknown) plastic wrap to (units (unknown) date) protect from shower unknown) stream. No soaking or submerging until all (unknown) (no (unknown) (unknown) sennosides [senna] (units (unknown) date) 8.6 mg Tablet unknown) (unknown) (no (unknown) (unknown) spasms/pain/nausea. (unit s (unknown) date) unknown) (unknown) (no (unknown) (unknown) swelling that will (units (unknown) date) not resolve with unknown) elevating, fever over 101?, significantly (unknown) (no (unknown) (unknown) the scabs fall off (units (unknown) date) (approximately 6 unknown) weeks). (unknown) (no (unknown) (unknown) when safe. (units (unk nown) date) unknown) (unknown) (no (unknown) (unknown) with a folded (units ( unknown) date) pillowcase. unknown) (unknown) (no (unknown) (unknown) worsening pain, or (units (unknown) date) are concerned you unknown) might need to go to the Emergency Room. Result panel 16 (unknown) (no (unknown) (unknown) (no value) (units (unk nown) date) unknown) (unknown) (no (unknown) (unknown) [id number] (units (unkno wn) date) unknown) (unknown) (no (unknown) (unknown) 03/31/22 (units (unkno wn) date) unknown) (unknown) (no (unknown) (unknown) [address] [place] [address] (units (unknown) date) unknown) (unknown) (no (unknown) (unknown) 6 are both (units (unk nown) date) unchanged compared unknown) to the prior CT likely cysts or hemangiomas. (unknown) (no (unknown) (unknown) Accession Number: (units (unknown) date) [id number] unknown) (unknown) (no (unknown) (unknown) Age/Sex: 86 / F (units (unknown) date) Date of Service: unknown) (unknown) (no (unknown) (unknown) [place], [place] (units ( unknown) date) [id number] unknown) (unknown) (no (unknown) (unknown) Approved by: (units (u nknown) date) Giacomo Hickman, yohana) Del on 03/31/2022 at 9:16 (unknown) (no (unknown) (unknown) Bones: There is (units (unknown) date) normal bony unknown) alignment. No acute vertebral body compression (unknown) (no (unknown) (unknown) COMPARISON: (units (un known) date) [facility], unknown) CT, CT LUMBAR SPINE WO [facility], 03/02/2022, 11:17. (unknown) (no (unknown) (unknown) CT Scan Report (units (unknown) date) unknown) (unknown) (no (unknown) (unknown) : 1935 (units (unknown) date) Acct:[id number] unknown) (unknown) (no (unknown) (unknown) Dictated by: (units (u nknown) date) Giacomo Hickman, yohana) Del on 03/31/2022 at 9:01 (unknown) (no (unknown) (unknown) FINDINGS: (units (unkn own) date) unknown) (unknown) (no (unknown) (unknown) IMPRESSION: (units (un known) date) Postoperative unknown) changes as above with severe central canal stenosis (unknown) (no (unknown) (unknown) INDICATIONS: (units (u nknown) date) Postoperative pain unknown) SURG 03-23-22 (unknown) (no (unknown) (unknown) Image quality: (units (unknown) date) Excellent. unknown) (unknown) (no (unknown) (unknown) [facility] (units (unknown) date) unknown) (unknown) (no (unknown) (unknown) L1-L2: No change (units (unknown) date) compared to unknown) 03/02/2022. (unknown) (no (unknown) (unknown) L2-L3: No change (units (unknown) date) compared to unknown) 03/02/2022. (unknown) (no (unknown) (unknown) L3-L4: No change (units (unknown) date) compared to unknown) 03/02/2022. Severe central canal stenosis due to (unknown) (no (unknown) (unknown) L4-5, and L5-S1. (units (unknown) date) unknown) (unknown) (no (unknown) (unknown) L4-L5: (units (unkno wn) date) Postoperative unknown) changes of pedicular screw and cecilia fixation with (unknown) (no (unknown) (unknown) L5-S1: (units (unkno wn) date) Postoperative unknown) changes of pedicular screw and cecilia fixation with (unknown) (no (unknown) (unknown) Loc: ED (units (unkno wn) date) unknown) (unknown) (no (unknown) (unknown) No suspicious (units ( unknown) date) lytic or blastic unknown) bony lesions. No pars defects. There are (unknown) (no (unknown) (unknown) Noncontrast 3 mm (units (unknown) date) thick sections unknown) acquired from the T12 level to the sacrum. (unknown) (no (unknown) (unknown) Ordering (units (unkno wn) date) Provider: unknown) Ken Delaney MD (unknown) (no (unknown) (unknown) PROCEDURE: CT (units ( unknown) date) LUMBAR SPINE WO unknown) CON (unknown) (no (unknown) (unknown) Patient: (units (unkno wn) date) Tonja Connolly A unknown) MR#: [id number] (unknown) (no (unknown) (unknown) Procedure: CT (units ( unknown) date) lumbar spine wo unknown) con (unknown) (no (unknown) (unknown) Sagittal and (units (u nknown) date) unknown) (unknown) (no (unknown) (unknown) Series 3, image (units (unknown) date) 70. unknown) (unknown) (no (unknown) (unknown) Signed (units (unkno wn) date) unknown) (unknown) (no (unknown) (unknown) Soft tissues: No (units (unknown) date) retroperitoneal unknown) masses or hematomas. 1.1 centimeter (unknown) (no (unknown) (unknown) T12-L1: No (units (unk nown) date) significant disc unknown) bulge. The foramina and central canal are patent. (unknown) (no (unknown) (unknown) TECHNIQUE: (units (unk nown) date) unknown) (unknown) (no (unknown) (unknown) Visualized (units (unk nown) date) unknown) (unknown) (no (unknown) (unknown) and (units (unkno wn) date) unknown) (unknown) (no (unknown) (unknown) aorta is normal (units (unknown) date) in caliber. unknown) (unknown) (no (unknown) (unknown) at L3-4, (units (unkno wn) date) unknown) (unknown) (no (unknown) (unknown) bilateral (units (unkn own) date) unknown) (unknown) (no (unknown) (unknown) changes of (units (unk nown) date) pedicular screw unknown) and cecilia fixation spanning from L4 through S1. No (unknown) (no (unknown) (unknown) coronal reformats (units (unknown) date) were constructed. unknown) For radiation dose reduction, the (unknown) (no (unknown) (unknown) discectomy and (units (unknown) date) unknown) (unknown) (no (unknown) (unknown) evaluated on CT (units (unknown) date) in there is unknown) metallic artifact however the central canal appears (unknown) (no (unknown) (unknown) following was (units ( unknown) date) unknown) (unknown) (no (unknown) (unknown) fractures. (units (unk nown) date) unknown) (unknown) (no (unknown) (unknown) hepatic segment (units (unknown) date) unknown) (unknown) (no (unknown) (unknown) hypodensity in (units (unknown) date) the unknown) (unknown) (no (unknown) (unknown) interbody (units (unkn own) date) fixation. There unknown) has been laminotomy on the right. Soft tissues are (unknown) (no (unknown) (unknown) interbody (units (unkn own) date) fixation. There is unknown) been laminotomy on the right. Facet hypertrophy (unknown) (no (unknown) (unknown) ligamentum flavum (units (unknown) date) buckling and bulky unknown) facet hypertrophy is unchanged. Moderate (unknown) (no (unknown) (unknown) ligamentum flavum (units (unknown) date) hypertrophy unknown) appears to cause persistent severe central canal (unknown) (no (unknown) (unknown) lucency. (units (unkno wn) date) Discectomy and unknown) interbody disc placement at L4-5 and L5-S1 is seen. (unknown) (no (unknown) (unknown) neural foraminal (units (unknown) date) stenosis. unknown) (unknown) (no (unknown) (unknown) not well (units (unkno wn) date) unknown) (unknown) (no (unknown) (unknown) perihardware (units (u nknown) date) unknown) (unknown) (no (unknown) (unknown) postoperative (units ( unknown) date) unknown) (unknown) (no (unknown) (unknown) right lobe of the (units (unknown) date) liver hepatic unknown) segment 8 and 1 centimeter hypodensity in (unknown) (no (unknown) (unknown) stenosis. (units (unkn own) date) unknown) (unknown) (no (unknown) (unknown) stenotic. (units (unkn own) date) unknown) (unknown) (no (unknown) (unknown) used: automated (units (unknown) date) exposure control. unknown) Result panel 17 (unknown) (no (unknown) (unknown) (no value) (units (unk nown) date) unknown) (unknown) (no (unknown) (unknown) #90 tabs (units (unkno wn) date) unknown) (unknown) (no (unknown) (unknown) (Acetaminophen (units (unknown) date) PM) unknown) (unknown) (no (unknown) (unknown) (can use 25mg of (units (unknown) date) OTC Benadryl for unknown) insomnia instead) (unknown) (no (unknown) (unknown) [id number] (units (unkno wn) date) unknown) (unknown) (no (unknown) (unknown) 08:17 (units (unkno wn) date) unknown) (unknown) (no (unknown) (unknown) 03/31/22 08:40 (units (unknown) date) unknown) (unknown) (no (unknown) (unknown) 03/31/22 08:41 (units (unknown) date) unknown) (unknown) (no (unknown) (unknown) 03/31/22 (units (unkno wn) date) unknown) (unknown) (no (unknown) (unknown) 1 tab PO BEDTIME (units (unknown) date) Qty: 30 0RF unknown) (unknown) (no (unknown) (unknown) 1 tab PO Q4HR PRN (units (unknown) date) (Reason: Pain, unknown) Moderate (4-6)) Qty: 42 0RF (unknown) (no (unknown) (unknown) 10 mg PO BEDTIME (units (unknown) date) unknown) (unknown) (no (unknown) (unknown) 100 mg PO BID PRN (units (unknown) date) (Reason: unknown) Constipation from narcotic pain meds) Qty: 30 0RF (unknown) (no (unknown) (unknown) 17.2 mg PO (units (unk nown) date) BEDTIME PRN unknown) (Reason: constipation) Qty: 14 0RF (unknown) (no (unknown) (unknown) 20 mg PO QAM (units (u nknown) date) unknown) (unknown) (no (unknown) (unknown) 25 mg PO Q4HR PRN (units (unknown) date) (Reason: Muscle unknown) spasms/pain/nausea ) Qty: 20 0RF (unknown) (no (unknown) (unknown) 3)) Qty: 90 0RF (units (unknown) date) unknown) (unknown) (no (unknown) (unknown) 300 mg PO BEDTIME (units (unknown) date) unknown) (unknown) (no (unknown) (unknown) 325 mg PO Q4H MDD (units (unknown) date) Max 3000mg/day unknown) from all source PRN (Reason: Pain, Mild (1 (unknown) (no (unknown) (unknown) Age/Sex: 86 / F (units (unknown) date) unknown) (unknown) (no (unknown) (unknown) Allergies (units (unkn own) date) unknown) (unknown) (no (unknown) (unknown) Allergy/AdvReac (units (unknown) date) Type Severity unknown) Reaction Status Date / Time (unknown) (no (unknown) (unknown) BACK: No flank (units (unknown) date) tenderness. unknown) [place] all 4 sites clean dry intact incision area. (unknown) (no (unknown) (unknown) Blood Pressure (units (unknown) date) 181/77 H 03/31/22 unknown) 08:17 (unknown) (no (unknown) (unknown) Blood Pressure (units (unknown) date) 181/77 H unknown) (unknown) (no (unknown) (unknown) CARDIOVASCULAR: (units (unknown) date) Denies chest pain, unknown) palpitations (unknown) (no (unknown) (unknown) CARDIOVASCULAR: (units (unknown) date) Regular rate and unknown) rhythm without murmurs (unknown) (no (unknown) (unknown) CBC Auto Diff (units ( unknown) date) [Complete Blood unknown) Count AUTO DIFF] Stat (unknown) (no (unknown) (unknown) CMP (units (unkno wn) date) [Comprehensive unknown) Metabolic Panel] Stat (unknown) (no (unknown) (unknown) CT lumbar spine (units (unknown) date) wo con Stat unknown) (unknown) (no (unknown) (unknown) Chief Complaint: (units (unknown) date) Back Pain/Injury unknown) (unknown) (no (unknown) (unknown) Course (units (unkno wn) date) unknown) (unknown) (no (unknown) (unknown) : 1935 (units (unknown) date) Acct:[id number] unknown) (unknown) (no (unknown) (unknown) Pamella Ortega, (units (unknown) date) [Primary Care unknown) Provider] (unknown) (no (unknown) (unknown) Date of Service: (units (unknown) date) 03/31/22 unknown) (unknown) (no (unknown) (unknown) Departure (units (unkn own) date) unknown) (unknown) (no (unknown) (unknown) Discharge Plan (units (unknown) date) unknown) (unknown) (no (unknown) (unknown) Discontinued (units (u nknown) date) Medications unknown) (unknown) (no (unknown) (unknown) Dr. Arciniega. She has (units (unknown) date) been doing well in unknown) the 1st few days postoperative. However (unknown) (no (unknown) (unknown) ED Orders (units (unkn own) date) unknown) (unknown) (no (unknown) (unknown) ENT: Mucous (units (un known) date) membranes moist. unknown) (unknown) (no (unknown) (unknown) ER Physician: (units ( unknown) date) Ken Delaney MD unknown) (unknown) (no (unknown) (unknown) EXTREMITIES: No (units (unknown) date) gross deformities. unknown) Calves or warm soft and pink. No palpable (unknown) (no (unknown) (unknown) EYES: Pupils (units (u nknown) date) equal round No unknown) scleral icterus. (unknown) (no (unknown) (unknown) Edema (units (unkno wn) date) unknown) (unknown) (no (unknown) (unknown) Emergency Report (units (unknown) date) unknown) (unknown) (no (unknown) (unknown) Exam Narrative: (units (unknown) date) unknown) (unknown) (no (unknown) (unknown) Exam (units (unkno wn) date) unknown) (unknown) (no (unknown) (unknown) GASTROINTESTINAL: (units (unknown) date) Abdomen soft, unknown) non-tender (unknown) (no (unknown) (unknown) GASTROINTESTINAL: (units (unknown) date) Denies nausea, unknown) vomiting, abdominal pain (unknown) (no (unknown) (unknown) GENERAL: Denies (units (unknown) date) chills, fatigue, unknown) malaise, fever, sweats. (unknown) (no (unknown) (unknown) GENERAL: in no (units (unknown) date) distress, not unknown) toxic not dyspneic (unknown) (no (unknown) (unknown) : Denies (units (unk nown) date) dysuria, unknown) frequency, hematuria (unknown) (no (unknown) (unknown) General (units (unkno wn) date) unknown) (unknown) (no (unknown) (unknown) HEAD: (units (unkno wn) date) Normocephalic. unknown) (unknown) (no (unknown) (unknown) HEENT: Denies (units ( unknown) date) sinus pain, ear unknown) pain, sore throat (unknown) (no (unknown) (unknown) HLD (units (unkno wn) date) (hyperlipidemia) unknown) (unknown) (no (unknown) (unknown) HPI - Back (units (unk nown) date) Pain/Injury unknown) (unknown) (no (unknown) (unknown) HPI Narrative: (units (unknown) date) unknown) (unknown) (no (unknown) (unknown) History of (units (unk nown) date) Present Illness unknown) (unknown) (no (unknown) (unknown) History of (units (unk nown) date) hysterectomy unknown) (unknown) (no (unknown) (unknown) History of total (units (unknown) date) left hip unknown) arthroplasty (unknown) (no (unknown) (unknown) History of total (units (unknown) date) right hip unknown) arthroplasty (unknown) (no (unknown) (unknown) Home Medications (units (unknown) date) unknown) (unknown) (no (unknown) (unknown) Hx of bilateral (units (unknown) date) cataract unknown) extraction (unknown) (no (unknown) (unknown) Hx of dilation (units (unknown) date) and curettage unknown) (unknown) (no (unknown) (unknown) Hx of (units (unkno wn) date) tonsillectomy unknown) (unknown) (no (unknown) (unknown) Hydromorphone HCl (units (unknown) date) (Hydromorphone 1 unknown) Mg Inj) 1 mg IV NOW ONE (unknown) (no (unknown) (unknown) Initial Vital (units ( unknown) date) Signs unknown) (unknown) (no (unknown) (unknown) Initial Vital (units ( unknown) date) Signs: unknown) (unknown) (no (unknown) (unknown) [facility] (units (unknown) date) [address] unknown) [place] [address] (unknown) (no (unknown) (unknown) Left leg straight (units (unknown) date) raise pain at 60?. unknown) Patient able to log roll to the right with (unknown) (no (unknown) (unknown) MUSCULOSKELETAL: (units (unknown) date) Positive for unknown) muscle or bony pain (unknown) (no (unknown) (unknown) Max 3000 mg of (units (unknown) date) acetaminophen per unknown) day from all sources (unknown) (no (unknown) (unknown) Medical History (units (unknown) date) (Reviewed 03/31/22 unknown) @ 08:43 by Ken Delaney MD) (unknown) (no (unknown) (unknown) Medication (units (unk nown) date) Instructions unknown) Recorded Confirmed (unknown) (no (unknown) (unknown) Medication (units (unk nown) date) Instructions unknown) Recorded (unknown) (no (unknown) (unknown) NECK: Trachea (units ( unknown) date) midline. unknown) (unknown) (no (unknown) (unknown) NEURO: AOx4. (units (u nknown) date) unknown) (unknown) (no (unknown) (unknown) NEUROLOGIC: (units (un known) date) Denies weakness, unknown) numbness (unknown) (no (unknown) (unknown) Narrative (units (unkn own) date) unknown) (unknown) (no (unknown) (unknown) Narrative: (units (unk nown) date) unknown) (unknown) (no (unknown) (unknown) No Action (units (unkn own) date) unknown) (unknown) (no (unknown) (unknown) No Known Drug (units ( unknown) date) Allergies Allergy unknown) Unverified 07/10/21 14:09 (unknown) (no (unknown) (unknown) No erythema (units (un known) date) induration or unknown) fluctuance. However there is tenderness to the right (unknown) (no (unknown) (unknown) Ondansetron HCl (units (unknown) date) (Ondansetron 4 unknown) Mg/2 Ml Inj) 4 mg IV NOW ONE (unknown) (no (unknown) (unknown) Ordered: (units (unkno wn) date) unknown) (unknown) (no (unknown) (unknown) Orders (units (unkno wn) date) unknown) (unknown) (no (unknown) (unknown) Oxygen Delivery (units (unknown) date) Method 03/31/22 unknown) 08:17 (unknown) (no (unknown) (unknown) Oxygen Delivery (units (unknown) date) Method Room Air unknown) (unknown) (no (unknown) (unknown) PSYCH: Not (units (unk nown) date) anxious, is unknown) cooperative (unknown) (no (unknown) (unknown) Patient History (units (unknown) date) unknown) (unknown) (no (unknown) (unknown) Patient brought (units (unknown) date) here by daughter unknown) from home. Complains of right lower back pain (unknown) (no (unknown) (unknown) Patient: (units (unkno wn) date) Tonja Connolly unknown) MR#: [id number] (unknown) (no (unknown) (unknown) Prescriptions: (units (unknown) date) unknown) (unknown) (no (unknown) (unknown) Previous Rx's (units ( unknown) date) unknown) (unknown) (no (unknown) (unknown) Pulse Oximetry 97 (units (unknown) date) 03/31/22 08:17 unknown) (unknown) (no (unknown) (unknown) Pulse Oximetry 97 (units (unknown) date) unknown) (unknown) (no (unknown) (unknown) Pulse Rate 86 (units ( unknown) date) 03/31/22 08:17 unknown) (unknown) (no (unknown) (unknown) Pulse Rate 86 (units ( unknown) date) unknown) (unknown) (no (unknown) (unknown) RESPIRATORY: Clear (units (unknown) date) to auscultation. unknown) Breath sounds equal bilaterally. No wheezes, (unknown) (no (unknown) (unknown) RESPIRATORY: (units (u nknown) date) Denies dyspnea, unknown) cough (unknown) (no (unknown) (unknown) ROS Unobtainable: (units (unknown) date) All systems unknown) reviewed + are unremarkable except as noted in HPI (unknown) (no (unknown) (unknown) Referrals: (units (unk nown) date) unknown) (unknown) (no (unknown) (unknown) Related Data (units (u nknown) date) unknown) (unknown) (no (unknown) (unknown) Respiratory Rate (units (unknown) date) 18 03/31/22 08:17 unknown) (unknown) (no (unknown) (unknown) Respiratory Rate (units (unknown) date) 18 unknown) (unknown) (no (unknown) (unknown) Review of Systems (units (unknown) date) unknown) (unknown) (no (unknown) (unknown) Rx Instructions: (units (unknown) date) unknown) (unknown) (no (unknown) (unknown) SKIN: Denies (units (u nknown) date) rash, skin lesions unknown) (unknown) (no (unknown) (unknown) SKIN: Warm and (units (unknown) date) dry unknown) (unknown) (no (unknown) (unknown) Sciatica (units (unkno wn) date) unknown) (unknown) (no (unknown) (unknown) Short-term memory (units (unknown) date) loss unknown) (unknown) (no (unknown) (unknown) Signed By: (units (unk nown) date) unknown) (unknown) (no (unknown) (unknown) Smoking Status: (units (unknown) date) Former smoker unknown) (unknown) (no (unknown) (unknown) Social History (units (unknown) date) (Reviewed 03/31/22 unknown) @ 08:43 by Ken Delaney MD) (unknown) (no (unknown) (unknown) Source: patient (units (unknown) date) unknown) (unknown) (no (unknown) (unknown) Spinal stenosis (units (unknown) date) unknown) (unknown) (no (unknown) (unknown) Stated Complaint: (units (unknown) date) Severe back/leg unknown) pain post spinal surg last week (unknown) (no (unknown) (unknown) Stop: 03/31/22 (units (unknown) date) 08:41 unknown) (unknown) (no (unknown) (unknown) Substance Use (units ( unknown) date) Type: does not use unknown) (unknown) (no (unknown) (unknown) Surgical History (units (unknown) date) (Reviewed 03/31/22 unknown) @ 08:43 by Ken Delaney MD) (unknown) (no (unknown) (unknown) Temperature 97.5 (units (unknown) date) F L 03/31/22 08:17 unknown) (unknown) (no (unknown) (unknown) Temperature 97.5 (units (unknown) date) F L unknown) (unknown) (no (unknown) (unknown) Time Seen by (units (u nknown) date) Provider: 03/31/22 unknown) 08:31 (unknown) (no (unknown) (unknown) Using a walker. (units (unknown) date) Brought in by unknown) private vehicle. (unknown) (no (unknown) (unknown) Vital Signs - 8 (units (unknown) date) hr unknown) (unknown) (no (unknown) (unknown) Vital Signs (units (un known) date) unknown) (unknown) (no (unknown) (unknown) Vital signs: (units (u nknown) date) unknown) (unknown) (no (unknown) (unknown) XR lumbar spine (units (unknown) date) 2-3V Stat unknown) (unknown) (no (unknown) (unknown) acetaminophen 325 (units (unknown) date) mg Tablet unknown) (unknown) (no (unknown) (unknown) acetaminophen 325 (units (unknown) date) mg tablet 325 mg unknown) PO Q4H PRN Pain, Mild (1-3) 03/24/22 (unknown) (no (unknown) (unknown) alcohol intake (units (unknown) date) frequency: a few unknown) times a week (unknown) (no (unknown) (unknown) alcohol intake: (units (unknown) date) current unknown) (unknown) (no (unknown) (unknown) and below (units (unkn own) date) unknown) (unknown) (no (unknown) (unknown) as well as low (units (unknown) date) back pain that unknown) rates her left leg. No calf pain. Patient is (unknown) (no (unknown) (unknown) assist (units (unkno wn) date) unknown) (unknown) (no (unknown) (unknown) atorvastatin 10 (units (unknown) date) mg Tablet unknown) (unknown) (no (unknown) (unknown) atorvastatin 10 (units (unknown) date) mg tablet 10 mg PO unknown) BEDTIME 03/17/22 03/23/22 (unknown) (no (unknown) (unknown) constipation #14 (units (unknown) date) tabs unknown) (unknown) (no (unknown) (unknown) cords. Normal (units ( unknown) date) Cooley test and unknown) Homans test (unknown) (no (unknown) (unknown) diphenhydramine (units (unknown) date) 25 1 tab PO unknown) BEDTIME #30 tabs 03/24/22 (unknown) (no (unknown) (unknown) diphenhydramine-a (units (unknown) date) cetaminophen unknown) [Acetaminophen PM] 25-500 mg Tablet (unknown) (no (unknown) (unknown) docusate sodium (units (unknown) date) 100 mg Capsule unknown) (unknown) (no (unknown) (unknown) docusate sodium (units (unknown) date) 100 mg capsule 100 unknown) mg PO BID PRN Constipation 03/24/22 (unknown) (no (unknown) (unknown) fever or chills. (units (unknown) date) [place] are still unknown) in place. Has been ambulatory at home. (unknown) (no (unknown) (unknown) from narcotic (units ( unknown) date) pain meds #30 caps unknown) (unknown) (no (unknown) (unknown) furosemide 20 mg (units (unknown) date) Tablet unknown) (unknown) (no (unknown) (unknown) furosemide 20 mg (units (unknown) date) tablet 20 mg PO unknown) QAM 03/17/22 03/23/22 (unknown) (no (unknown) (unknown) gabapentin 300 mg (units (unknown) date) Capsule unknown) (unknown) (no (unknown) (unknown) gabapentin 300 mg (units (unknown) date) capsule 300 mg PO unknown) BEDTIME 03/17/22 03/23/22 (unknown) (no (unknown) (unknown) household (units (unkn own) date) members: spouse unknown) (unknown) (no (unknown) (unknown) hydrocodone 5 (units ( unknown) date) mg-acetaminophen unknown) 325 1 tab PO Q4HR PRN Pain, Moderate 03/24/22 (unknown) (no (unknown) (unknown) hydrocodone-aceta (units (unknown) date) minophen 5-325 mg unknown) Tablet (unknown) (no (unknown) (unknown) hydroxyzine (units (un known) date) pamoate 25 mg unknown) Capsule (unknown) (no (unknown) (unknown) hydroxyzine (units (un known) date) pamoate 25 mg unknown) capsule 25 mg PO Q4HR PRN Muscle 03/24/22 (unknown) (no (unknown) (unknown) last 2 days now (units (unknown) date) has had pain unknown) without any injury or changes in activity. Is (unknown) (no (unknown) (unknown) lower stable (units (u nknown) date) incision area. unknown) Increased pain right straight leg raise at 30?. (unknown) (no (unknown) (unknown) mg tablet (4-6) (units (unknown) date) #42 tabs unknown) (unknown) (no (unknown) (unknown) mg-acetaminophen (units (unknown) date) 500 mg tablet unknown) (unknown) (no (unknown) (unknown) postop day 8 (units (u nknown) date) status post back unknown) surgery/laminectom y/fusion that was done here by (unknown) (no (unknown) (unknown) cedrick, or (units (unkn own) date) malik. unknown) (unknown) (no (unknown) (unknown) sennosides 8.6 mg (units (unknown) date) tablet (senna) unknown) 17.2 mg PO BEDTIME PRN 03/24/22 (unknown) (no (unknown) (unknown) sennosides (units (unk nown) date) [senna] 8.6 mg unknown) Tablet (unknown) (no (unknown) (unknown) spasms/pain/nause (units (unknown) date) a #20 caps unknown) (unknown) (no (unknown) (unknown) taking routine (units (unknown) date) pain medication unknown) without any changes. Is taking hydrocodone. No Result panel 18 (unknown) (no date) (unknown) (unknown) 0 /ul (unkn own) (unknown) (no date) (unknown) (unknown) 0.3 % (unkn own) (unknown) (no date) (unknown) (unknown) 10.8 g/dl (unkn own) (unknown) (no date) (unknown) (unknown) 100 /ul (unkn own) (unknown) (no date) (unknown) (unknown) 12.6 % (unkn own) (unknown) (no date) (unknown) (unknown) 1400 /ul (unkn own) (unknown) (no date) (unknown) (unknown) 2.1 % (unkn own) (unknown) (no date) (unknown) (unknown) 234 x10 3/ul (unkn own) (unknown) (no date) (unknown) (unknown) 24.6 % (unkn own) (unknown) (no date) (unknown) (unknown) 29.7 pg (unkn own) (unknown) (no date) (unknown) (unknown) 3.65 x10 6/ul (unkn own) (unknown) (no date) (unknown) (unknown) 31.0 % (unkn own) (unknown) (no date) (unknown) (unknown) 34.9 % (unkn own) (unknown) (no date) (unknown) (unknown) 3700 /ul (unkn own) (unknown) (no date) (unknown) (unknown) 400 /ul (unkn own) (unknown) (no date) (unknown) (unknown) 5.6 x10 3/ul (unkn own) (unknown) (no date) (unknown) (unknown) 6.6 % (unkn own) (unknown) (no date) (unknown) (unknown) 66.4 % (unkn own) (unknown) (no date) (unknown) (unknown) 85.0 fl (unkn own) Result panel 19 (unknown) (no (unknown) (unknown) (no value) (units (unk nown) date) unknown) (unknown) (no (unknown) (unknown) #90 tabs (units (unkno wn) date) unknown) (unknown) (no (unknown) (unknown) (Acetaminophen (units (unknown) date) PM) unknown) (unknown) (no (unknown) (unknown) (can use 25mg of (units (unknown) date) OTC Benadryl for unknown) insomnia instead) (unknown) (no (unknown) (unknown) [id number] (units (unkno wn) date) unknown) (unknown) (no (unknown) (unknown) 08:17 (units (unkno wn) date) unknown) (unknown) (no (unknown) (unknown) 08:45 08:45 (units (un known) date) unknown) (unknown) (no (unknown) (unknown) 03/31/22 08:41 (units (unknown) date) unknown) (unknown) (no (unknown) (unknown) 03/31/22 08:45 (units (unknown) date) unknown) (unknown) (no (unknown) (unknown) 03/31/22 03/31/22 (units (unknown) date) Range/Units unknown) (unknown) (no (unknown) (unknown) 03/31/22 (units (unkno wn) date) unknown) (unknown) (no (unknown) (unknown) 1 tab PO BEDTIME (units (unknown) date) Qty: 30 0RF unknown) (unknown) (no (unknown) (unknown) 1 tab PO Q4HR PRN (units (unknown) date) (Reason: Pain, unknown) Moderate (4-6)) Qty: 42 0RF (unknown) (no (unknown) (unknown) 10 mg PO BEDTIME (units (unknown) date) unknown) (unknown) (no (unknown) (unknown) 100 mg PO BID PRN (units (unknown) date) (Reason: unknown) Constipation from narcotic pain meds) Qty: 30 0RF (unknown) (no (unknown) (unknown) [address] [facility] (units (unknown) date) unknown) (unknown) (no (unknown) (unknown) 17.2 mg PO (units (unk nown) date) BEDTIME PRN unknown) (Reason: constipation) Qty: 14 0RF (unknown) (no (unknown) (unknown) 20 mg PO QAM (units (u nknown) date) unknown) (unknown) (no (unknown) (unknown) 20 mg PO TID Qty: (units (unknown) date) 18 0RF unknown) (unknown) (no (unknown) (unknown) 25 mg PO Q4HR PRN (units (unknown) date) (Reason: Muscle unknown) spasms/pain/nausea ) Qty: 20 0RF (unknown) (no (unknown) (unknown) 3)) Qty: 90 0RF (units (unknown) date) unknown) (unknown) (no (unknown) (unknown) 300 mg PO BEDTIME (units (unknown) date) unknown) (unknown) (no (unknown) (unknown) 325 mg PO Q4H MDD (units (unknown) date) Max 3000mg/day unknown) from all source PRN (Reason: Pain, Mild (1 (unknown) (no (unknown) (unknown) 6 are both (units (unk nown) date) unchanged compared unknown) to the prior CT likely cysts or hemangiomas.? (unknown) (no (unknown) (unknown) ? (units (unkno wn) date) unknown) (unknown) (no (unknown) (unknown) ALT 67 H (<35) (units (unknown) date) IU/L unknown) (unknown) (no (unknown) (unknown) AST 67 H (14-36) (units (unknown) date) IU/L unknown) (unknown) (no (unknown) (unknown) Accession Number: (units (unknown) date) [id number] ?? unknown) (unknown) (no (unknown) (unknown) Acct:[id number] (units (unknown) date) unknown) (unknown) (no (unknown) (unknown) Activity (units (unkno wn) date) Restrictions/Addit unknown) ional Instructions: (unknown) (no (unknown) (unknown) Age/Sex: 86 / F (units (unknown) date) unknown) (unknown) (no (unknown) (unknown) Albumin 3.6 (units (un known) date) (3.5-5.0) g/dL unknown) (unknown) (no (unknown) (unknown) Albumin/Globulin (units (unknown) date) Ratio 1.2 unknown) (1.0-2.8) (unknown) (no (unknown) (unknown) Alkaline (units (unkno wn) date) Phosphatase 93 unknown) (38-126) U/L (unknown) (no (unknown) (unknown) Allergies (units (unkn own) date) unknown) (unknown) (no (unknown) (unknown) Allergy/AdvReac (units (unknown) date) Type Severity unknown) Reaction Status Date / Time (unknown) (no (unknown) (unknown) [place], [place] (units ( unknown) date) [id number] unknown) (unknown) (no (unknown) (unknown) Appropriate for (units (unknown) date) discharge home. unknown) Exam and laboratory studies and imaging are (unknown) (no (unknown) (unknown) Approved by: (units (u nknown) date) yohana Melendez) Del on 03/31/2022 at 9:16 ? (unknown) (no (unknown) (unknown) BACK: No flank (units (unknown) date) tenderness. unknown) [place] all 4 sites clean dry intact incision area. (unknown) (no (unknown) (unknown) BUN 10 (7-17) (units ( unknown) date) mg/dL unknown) (unknown) (no (unknown) (unknown) BUN/Creatinine (units (unknown) date) Ratio 13.9 (6-22) unknown) (unknown) (no (unknown) (unknown) Baso # (Auto) 0 (units (unknown) date) (0-100) /uL unknown) (unknown) (no (unknown) (unknown) Baso % (Auto) 0.3 (units (unknown) date) (0-2) % unknown) (unknown) (no (unknown) (unknown) Blood Pressure (units (unknown) date) 181/77 H 03/31/22 unknown) 08:17 (unknown) (no (unknown) (unknown) Blood Pressure (units (unknown) date) 181/77 H unknown) (unknown) (no (unknown) (unknown) Bones:? There is (units (unknown) date) normal bony unknown) alignment.? No acute vertebral body compression (unknown) (no (unknown) (unknown) CARDIOVASCULAR: (units (unknown) date) Denies chest pain, unknown) palpitations (unknown) (no (unknown) (unknown) CARDIOVASCULAR: (units (unknown) date) Regular rate and unknown) rhythm without murmurs (unknown) (no (unknown) (unknown) CBC Auto Diff (units ( unknown) date) [Complete Blood unknown) Count AUTO DIFF] Stat (unknown) (no (unknown) (unknown) CMP (units (unkno wn) date) [Comprehensive unknown) Metabolic Panel] Stat (unknown) (no (unknown) (unknown) COMPARISON:? (units (u nknown) date) [facility], unknown) CT, CT LUMBAR SPINE WO CON, 03/02/2022, 11:17. (unknown) (no (unknown) (unknown) CT Scan Report (units (unknown) date) unknown) (unknown) (no (unknown) (unknown) CT lumbar spine (units (unknown) date) wo con Stat unknown) (unknown) (no (unknown) (unknown) CT lumbar spine: (units (unknown) date) unknown) (unknown) (no (unknown) (unknown) Calcium 8.9 (units (un known) date) (8.4-10.2) mg/dL unknown) (unknown) (no (unknown) (unknown) Carbon Dioxide 30 (units (unknown) date) (22-32) mmol/L unknown) (unknown) (no (unknown) (unknown) Chief Complaint: (units (unknown) date) Back Pain/Injury unknown) (unknown) (no (unknown) (unknown) Chloride 101 (units (u nknown) date) (98-107) mmol/L unknown) (unknown) (no (unknown) (unknown) Clinical (units (unkno wn) date) Impression: unknown) (unknown) (no (unknown) (unknown) Course Narrative: (units (unknown) date) unknown) (unknown) (no (unknown) (unknown) Course (units (unkno wn) date) unknown) (unknown) (no (unknown) (unknown) Creatinine 0.72 (units (unknown) date) (0.52-1.04) mg/dL unknown) (unknown) (no (unknown) (unknown) : 1935 (units (unknown) date) Acct:[id number] unknown) (unknown) (no (unknown) (unknown) : 1935 (units (unknown) date) unknown) (unknown) (no (unknown) (unknown) Pamella Ortega, (units (unknown) date) MD [Primary Care unknown) Provider] (unknown) (no (unknown) (unknown) Date of Service: (units (unknown) date) 03/31/22 unknown) (unknown) (no (unknown) (unknown) Departure (units (unkn own) date) unknown) (unknown) (no (unknown) (unknown) Dictated by: (units (u nknown) date) denisha Melendez M.D. on 03/31/2022 at 9:01 ? ? (unknown) (no (unknown) (unknown) Differential (units (u nknown) date) Diagnosis unknown) (unknown) (no (unknown) (unknown) Differential (units (u nknown) date) diagnosis: Likely unknown) lumbar radiculopathy, sciatica, strain of lumbar (unknown) (no (unknown) (unknown) Discharge Plan (units (unknown) date) unknown) (unknown) (no (unknown) (unknown) Discontinued (units (u nknown) date) Medications unknown) (unknown) (no (unknown) (unknown) Documented By: BT (units (unknown) date) unknown) (unknown) (no (unknown) (unknown) Dr. Arciniega. She has (units (unknown) date) been doing well in unknown) the 1st few days postoperative. However (unknown) (no (unknown) (unknown) ED Orders (units (unkn own) date) unknown) (unknown) (no (unknown) (unknown) ENT: Mucous (units (un known) date) membranes moist. unknown) (unknown) (no (unknown) (unknown) ER Physician: (units ( unknown) date) Ken Delaney MD unknown) (unknown) (no (unknown) (unknown) EXTREMITIES: No (units (unknown) date) gross deformities. unknown) [place] or warm soft and pink. No palpable (unknown) (no (unknown) (unknown) EYES: Pupils (units (u nknown) date) equal round No unknown) scleral icterus. (unknown) (no (unknown) (unknown) Edema (units (unkno wn) date) unknown) (unknown) (no (unknown) (unknown) Emergency Report (units (unknown) date) unknown) (unknown) (no (unknown) (unknown) Eos # (Auto) 100 (units (unknown) date) (0-450) /uL unknown) (unknown) (no (unknown) (unknown) Eos % (Auto) 2.1 (units (unknown) date) (2-4) % unknown) (unknown) (no (unknown) (unknown) Estimated GFR > (units (unknown) date) 60 (>60) mL/min unknown) (unknown) (no (unknown) (unknown) Exam Narrative: (units (unknown) date) unknown) (unknown) (no (unknown) (unknown) Exam (units (unkno wn) date) unknown) (unknown) (no (unknown) (unknown) FINDINGS:? (units (unk nown) date) unknown) (unknown) (no (unknown) (unknown) GASTROINTESTINAL: (units (unknown) date) Abdomen soft, unknown) non-tender (unknown) (no (unknown) (unknown) GASTROINTESTINAL: (units (unknown) date) Denies nausea, unknown) vomiting, abdominal pain (unknown) (no (unknown) (unknown) GENERAL: Denies (units (unknown) date) chills, fatigue, unknown) malaise, fever, sweats. (unknown) (no (unknown) (unknown) GENERAL: in no (units (unknown) date) distress, not unknown) toxic not dyspneic (unknown) (no (unknown) (unknown) : Denies (units (unk nown) date) dysuria, unknown) frequency, hematuria (unknown) (no (unknown) (unknown) General (units (unkno wn) date) unknown) (unknown) (no (unknown) (unknown) Globulin 3.1 (units (u nknown) date) (1.7-4.1) g/dL unknown) (unknown) (no (unknown) (unknown) Glucose 118 H (units ( unknown) date) (80-110) mg/dL unknown) (unknown) (no (unknown) (unknown) HEAD: (units (unkno wn) date) Normocephalic. unknown) (unknown) (no (unknown) (unknown) HEENT: Denies (units ( unknown) date) sinus pain, ear unknown) pain, sore throat (unknown) (no (unknown) (unknown) HLD (units (unkno wn) date) (hyperlipidemia) unknown) (unknown) (no (unknown) (unknown) HPI - Back (units (unk nown) date) Pain/Injury unknown) (unknown) (no (unknown) (unknown) HPI Narrative: (units (unknown) date) unknown) (unknown) (no (unknown) (unknown) Hct 31.0 L (units (unk nown) date) (36-46) % unknown) (unknown) (no (unknown) (unknown) Hgb 10.8 L (units (unk nown) date) (12.0-16.0) g/dL unknown) (unknown) (no (unknown) (unknown) History of (units (unk nown) date) Present Illness unknown) (unknown) (no (unknown) (unknown) History of (units (unk nown) date) hysterectomy unknown) (unknown) (no (unknown) (unknown) History of total (units (unknown) date) left hip unknown) arthroplasty (unknown) (no (unknown) (unknown) History of total (units (unknown) date) right hip unknown) arthroplasty (unknown) (no (unknown) (unknown) Home Medications (units (unknown) date) unknown) (unknown) (no (unknown) (unknown) Hx of bilateral (units (unknown) date) cataract unknown) extraction (unknown) (no (unknown) (unknown) Hx of dilation (units (unknown) date) and curettage unknown) (unknown) (no (unknown) (unknown) Hx of (units (unkno wn) date) tonsillectomy unknown) (unknown) (no (unknown) (unknown) Hydromorphone HCl (units (unknown) date) (Hydromorphone 1 unknown) Mg Inj) 1 mg IV NOW ONE (unknown) (no (unknown) (unknown) IMPRESSION:? (units (u nknown) date) Postoperative unknown) changes as above with severe central canal stenosis (unknown) (no (unknown) (unknown) INDICATIONS:? (units ( unknown) date) Postoperative pain unknown) SURG 03-23-22 (unknown) (no (unknown) (unknown) Image quality:? (units (unknown) date) Excellent.? unknown) (unknown) (no (unknown) (unknown) Imaging Data (units (u nknown) date) unknown) (unknown) (no (unknown) (unknown) Initial Vital (units ( unknown) date) Signs unknown) (unknown) (no (unknown) (unknown) Initial Vital (units ( unknown) date) Signs: unknown) (unknown) (no (unknown) (unknown) Instructions: DI (units (unknown) date) for Back Spasm unknown) (unknown) (no (unknown) (unknown) [facility] (units (unknown) date) [address] unknown) [place] [address] (unknown) (no (unknown) (unknown) [facility] (units (unknown) date) unknown) (unknown) (no (unknown) (unknown) L1-L2:? No change (units (unknown) date) compared to unknown) 03/02/2022. (unknown) (no (unknown) (unknown) L2-L3:? No change (units (unknown) date) compared to unknown) 03/02/2022. (unknown) (no (unknown) (unknown) L3-L4:? No change (units (unknown) date) compared to unknown) 03/02/2022.? Severe central canal stenosis due to (unknown) (no (unknown) (unknown) L4-5, and L5-S1. (units (unknown) date) unknown) (unknown) (no (unknown) (unknown) L4-L5:? (units (unkno wn) date) Postoperative unknown) changes of pedicular screw and cecilia fixation with (unknown) (no (unknown) (unknown) L5-S1:? (units (unkno wn) date) Postoperative unknown) changes of pedicular screw and cecilia fixation with (unknown) (no (unknown) (unknown) Lab Data (units (unkno wn) date) unknown) (unknown) (no (unknown) (unknown) Lab Results (units (un known) date) unknown) (unknown) (no (unknown) (unknown) Labs: (units (unkno wn) date) unknown) (unknown) (no (unknown) (unknown) Last Admin: (units (un known) date) 03/31/22 09:15 unknown) Dose: 1 mg (unknown) (no (unknown) (unknown) Last Admin: (units (un known) date) 03/31/22 09:15 unknown) Dose: 4 mg (unknown) (no (unknown) (unknown) Left leg straight (units (unknown) date) raise pain at 60?. unknown) Patient able to log roll to the right with (unknown) (no (unknown) (unknown) Loc: ED (units (unkno wn) date) unknown) (unknown) (no (unknown) (unknown) Lymph # (Auto) (units (unknown) date) 1400 (1838-5974) unknown) /uL (unknown) (no (unknown) (unknown) Lymph % (Auto) (units (unknown) date) 24.6 L (25-40) % unknown) (unknown) (no (unknown) (unknown) MCH 29.7 (26-34) (units (unknown) date) PG unknown) (unknown) (no (unknown) (unknown) MCHC 34.9 (30-36) (units (unknown) date) % unknown) (unknown) (no (unknown) (unknown) MCV 85.0 (80-100) (units (unknown) date) fL unknown) (unknown) (no (unknown) (unknown) MDM - Back (units (unk nown) date) Pain/Injury unknown) (unknown) (no (unknown) (unknown) MDM Narrative (units ( unknown) date) unknown) (unknown) (no (unknown) (unknown) MR#: [id number] (units (unknown) date) unknown) (unknown) (no (unknown) (unknown) MUSCULOSKELETAL: (units (unknown) date) Positive for unknown) muscle or bony pain (unknown) (no (unknown) (unknown) Max 3000 mg of (units (unknown) date) acetaminophen per unknown) day from all sources (unknown) (no (unknown) (unknown) Medical History (units (unknown) date) (Reviewed 03/31/22 unknown) @ 08:43 by Ken Delaney MD) (unknown) (no (unknown) (unknown) Medical decision (units (unknown) date) making narrative: unknown) (unknown) (no (unknown) (unknown) Medication (units (unk nown) date) Instructions unknown) Recorded Confirmed (unknown) (no (unknown) (unknown) Medication (units (unk nown) date) Instructions unknown) Recorded (unknown) (no (unknown) (unknown) [place] # (Auto) 400 (units (unknown) date) (0-900) /uL unknown) (unknown) (no (unknown) (unknown) [place] % (Auto) 6.6 (units (unknown) date) (3-14) % unknown) (unknown) (no (unknown) (unknown) Muscle spasm of (units (unknown) date) back unknown) (unknown) (no (unknown) (unknown) NECK: Trachea (units ( unknown) date) midline. unknown) (unknown) (no (unknown) (unknown) NEURO: AOx4. (units (u nknown) date) unknown) (unknown) (no (unknown) (unknown) NEUROLOGIC: (units (un known) date) Denies weakness, unknown) numbness (unknown) (no (unknown) (unknown) Narrative (units (unkn own) date) unknown) (unknown) (no (unknown) (unknown) Narrative: (units (unk nown) date) unknown) (unknown) (no (unknown) (unknown) Neut # (Auto) (units ( unknown) date) 3700 (0380-5555) unknown) /uL (unknown) (no (unknown) (unknown) Neut % (Auto) (units ( unknown) date) 66.4 (50-75) % unknown) (unknown) (no (unknown) (unknown) New (units (unkno wn) date) unknown) (unknown) (no (unknown) (unknown) No Action (units (unkn own) date) unknown) (unknown) (no (unknown) (unknown) No Known Drug (units ( unknown) date) Allergies Allergy unknown) Unverified 07/10/21 14:09 (unknown) (no (unknown) (unknown) No erythema (units (un known) date) induration or unknown) fluctuance. However there is tenderness to the right (unknown) (no (unknown) (unknown) No new issues (units ( unknown) date) during course of unknown) stay (unknown) (no (unknown) (unknown) No suspicious (units ( unknown) date) lytic or blastic unknown) bony lesions.? No pars defects.? There are (unknown) (no (unknown) (unknown) Noncontrast 3 mm (units (unknown) date) thick sections unknown) acquired from the T12 level to the sacrum.? (unknown) (no (unknown) (unknown) Ondansetron HCl (units (unknown) date) (Ondansetron 4 unknown) Mg/2 Ml Inj) 4 mg IV NOW ONE (unknown) (no (unknown) (unknown) Ordered: (units (unkno wn) date) unknown) (unknown) (no (unknown) (unknown) Ordering (units (unkno wn) date) Provider: unknown) Ken Delaney MD (unknown) (no (unknown) (unknown) Orders (units (unkno wn) date) unknown) (unknown) (no (unknown) (unknown) Oxygen Delivery (units (unknown) date) Method 03/31/22 unknown) 08:17 (unknown) (no (unknown) (unknown) Oxygen Delivery (units (unknown) date) Method Room Air unknown) (unknown) (no (unknown) (unknown) PROCEDURE:? CT (units (unknown) date) LUMBAR SPINE WO unknown) CON (unknown) (no (unknown) (unknown) PSYCH: Not (units (unk nown) date) anxious, is unknown) cooperative (unknown) (no (unknown) (unknown) Patient (units (o wn) date) Disposition: Home unknown) (unknown) (no (unknown) (unknown) Patient History (units (unknown) date) unknown) (unknown) (no (unknown) (unknown) Patient brought (units (unknown) date) here by daughter unknown) from home. Complains of right lower back pain (unknown) (no (unknown) (unknown) Patient: (units (o wn) date) Tonja Connolly unknown) MR#: [id number] (unknown) (no (unknown) (unknown) Patient: (units (o wn) date) Tonja Connolly unknown) (unknown) (no (unknown) (unknown) Plt Count 234 (units ( unknown) date) (150-400) X103/uL unknown) (unknown) (no (unknown) (unknown) Potassium 3.7 (units ( unknown) date) (3.4-5.1) mmol/L unknown) (unknown) (no (unknown) (unknown) Prescriptions: (units (unknown) date) unknown) (unknown) (no (unknown) (unknown) Previous Rx's (units ( unknown) date) unknown) (unknown) (no (unknown) (unknown) Procedure: CT (units ( unknown) date) lumbar spine wo unknown) con (unknown) (no (unknown) (unknown) Pulse Oximetry 97 (units (unknown) date) 03/31/22 08:17 unknown) (unknown) (no (unknown) (unknown) Pulse Oximetry 97 (units (unknown) date) unknown) (unknown) (no (unknown) (unknown) Pulse Rate 86 (units ( unknown) date) 03/31/22 08:17 unknown) (unknown) (no (unknown) (unknown) Pulse Rate 86 (units ( unknown) date) unknown) (unknown) (no (unknown) (unknown) RBC 3.65 L (units (unk nown) date) (4.0-5.2) X106/uL unknown) (unknown) (no (unknown) (unknown) RDW 12.6 (units (o wn) date) (11.6-14.8) % unknown) (unknown) (no (unknown) (unknown) RESPIRATORY: Clear (units (unknown) date) to auscultation. unknown) Breath sounds equal bilaterally. No wheezes, (unknown) (no (unknown) (unknown) RESPIRATORY: (units (u nknown) date) Denies dyspnea, unknown) cough (unknown) (no (unknown) (unknown) ROS Unobtainable: (units (unknown) date) All systems unknown) reviewed + are unremarkable except as noted in HPI (unknown) (no (unknown) (unknown) Radiologist's (units ( unknown) date) Impression: unknown) (unknown) (no (unknown) (unknown) Reevaluation #1: (units (unknown) date) unknown) (unknown) (no (unknown) (unknown) Reevaluation(s) (units (unknown) date) unknown) (unknown) (no (unknown) (unknown) Referrals: (units (unk nown) date) unknown) (unknown) (no (unknown) (unknown) Related Data (units (u nknown) date) unknown) (unknown) (no (unknown) (unknown) Respiratory Rate (units (unknown) date) 18 03/31/22 08:17 unknown) (unknown) (no (unknown) (unknown) Respiratory Rate (units (unknown) date) 18 unknown) (unknown) (no (unknown) (unknown) Result diagrams: (units (unknown) date) unknown) (unknown) (no (unknown) (unknown) Review of Systems (units (unknown) date) unknown) (unknown) (no (unknown) (unknown) Reviewed results (units (unknown) date) with patient and unknown) daughter. At the same laboratory studies and (unknown) (no (unknown) (unknown) Rx Instructions: (units (unknown) date) unknown) (unknown) (no (unknown) (unknown) SKIN: Denies (units (u nknown) date) rash, skin lesions unknown) (unknown) (no (unknown) (unknown) SKIN: Warm and (units (unknown) date) dry unknown) (unknown) (no (unknown) (unknown) Sagittal and (units (u nknown) date) unknown) (unknown) (no (unknown) (unknown) Sciatica (units (unkno wn) date) unknown) (unknown) (no (unknown) (unknown) See ortho spine (units (unknown) date) surgeon as unknown) scheduled for your follow-up appointment. Baclofen (unknown) (no (unknown) (unknown) Series 3, image (units (unknown) date) 70. unknown) (unknown) (no (unknown) (unknown) Short-term memory (units (unknown) date) loss unknown) (unknown) (no (unknown) (unknown) Signed By: (units (unk nown) date) unknown) (unknown) (no (unknown) (unknown) Signed (units (unkno wn) date) unknown) (unknown) (no (unknown) (unknown) Smoking Status: (units (unknown) date) Former smoker unknown) (unknown) (no (unknown) (unknown) Social History (units (unknown) date) (Reviewed 03/31/22 unknown) @ 08:43 by Ken Delaney MD) (unknown) (no (unknown) (unknown) Sodium 140 (units (unk nown) date) (137-145) mmol/L unknown) (unknown) (no (unknown) (unknown) Soft tissues:? No (units (unknown) date) retroperitoneal unknown) masses or hematomas.? 1.1 centimeter (unknown) (no (unknown) (unknown) Source: patient (units (unknown) date) unknown) (unknown) (no (unknown) (unknown) Spinal stenosis (units (unknown) date) unknown) (unknown) (no (unknown) (unknown) Stated Complaint: (units (unknown) date) Severe back/leg unknown) pain post spinal surg last week (unknown) (no (unknown) (unknown) Stop: 03/31/22 (units (unknown) date) 08:41 unknown) (unknown) (no (unknown) (unknown) Substance Use (units ( unknown) date) Type: does not use unknown) (unknown) (no (unknown) (unknown) Surgical History (units (unknown) date) (Reviewed 03/31/22 unknown) @ 08:43 by Ken Delaney MD) (unknown) (no (unknown) (unknown) T12-L1:? No (units (un known) date) significant disc unknown) bulge. The foramina and central canal are patent. (unknown) (no (unknown) (unknown) TECHNIQUE:? (units (un known) date) unknown) (unknown) (no (unknown) (unknown) Temperature 97.5 (units (unknown) date) F L 03/31/22 08:17 unknown) (unknown) (no (unknown) (unknown) Temperature 97.5 (units (unknown) date) F L unknown) (unknown) (no (unknown) (unknown) They do desire (units (unknown) date) discharge home. unknown) Reviewed with them likely had muscular spasm of (unknown) (no (unknown) (unknown) Time Seen by (units (u nknown) date) Provider: 03/31/22 unknown) 08:31 (unknown) (no (unknown) (unknown) Time: 10:32 (units (un known) date) unknown) (unknown) (no (unknown) (unknown) Total Bilirubin (units (unknown) date) 0.6 (0.2-1.3) unknown) mg/dL (unknown) (no (unknown) (unknown) Total Protein 6.7 (units (unknown) date) (6.3-8.2) g/dL unknown) (unknown) (no (unknown) (unknown) Using a walker. (units (unknown) date) Brought in by unknown) private vehicle. (unknown) (no (unknown) (unknown) Visualized (units (unk nown) date) unknown) (unknown) (no (unknown) (unknown) Vital Signs - 8 (units (unknown) date) hr unknown) (unknown) (no (unknown) (unknown) Vital Signs (units (un known) date) unknown) (unknown) (no (unknown) (unknown) Vital signs: (units (u nknown) date) unknown) (unknown) (no (unknown) (unknown) WBC 5.6 (units (unkno wn) date) (4.5-11.0) X103/uL unknown) (unknown) (no (unknown) (unknown) [Embedded Image (units (unknown) date) Not Available] unknown) (unknown) (no (unknown) (unknown) acetaminophen 325 (units (unknown) date) mg Tablet unknown) (unknown) (no (unknown) (unknown) acetaminophen 325 (units (unknown) date) mg tablet 325 mg unknown) PO Q4H PRN Pain, Mild (1-3) 03/24/22 (unknown) (no (unknown) (unknown) added to help for (units (unknown) date) muscle spasms. Not unknown) toxic at discharge (unknown) (no (unknown) (unknown) alcohol intake (units (unknown) date) frequency: a few unknown) times a week (unknown) (no (unknown) (unknown) alcohol intake: (units (unknown) date) current unknown) (unknown) (no (unknown) (unknown) and below (units (unkn own) date) unknown) (unknown) (no (unknown) (unknown) and (units (unkno wn) date) unknown) (unknown) (no (unknown) (unknown) aorta is normal (units (unknown) date) in caliber.? unknown) (unknown) (no (unknown) (unknown) as well as low (units (unknown) date) back pain that unknown) rates her left leg. No calf pain. Patient is (unknown) (no (unknown) (unknown) assist (units (unkno wn) date) unknown) (unknown) (no (unknown) (unknown) at L3-4, (units (unkno wn) date) unknown) (unknown) (no (unknown) (unknown) atorvastatin 10 (units (unknown) date) mg Tablet unknown) (unknown) (no (unknown) (unknown) atorvastatin 10 (units (unknown) date) mg tablet 10 mg PO unknown) BEDTIME 03/17/22 03/23/22 (unknown) (no (unknown) (unknown) baclofen 20 mg (units (unknown) date) tablet 20 mg PO unknown) TID #18 tabs 03/31/22 (unknown) (no (unknown) (unknown) baclofen 20 mg (units (unknown) date) tablet unknown) (unknown) (no (unknown) (unknown) bilateral (units (unkn own) date) unknown) (unknown) (no (unknown) (unknown) changes of (units (unk nown) date) pedicular screw unknown) and cecilia fixation spanning from L4 through S1.? No (unknown) (no (unknown) (unknown) constipation #14 (units (unknown) date) tabs unknown) (unknown) (no (unknown) (unknown) control. They (units ( unknown) date) agree with unknown) treatment plan (unknown) (no (unknown) (unknown) cords. Normal (units ( unknown) date) Cooley test and unknown) Homans test (unknown) (no (unknown) (unknown) coronal reformats (units (unknown) date) were constructed.? unknown) For radiation dose reduction, the following (unknown) (no (unknown) (unknown) diphenhydramine (units (unknown) date) 25 1 tab PO unknown) BEDTIME #30 tabs 03/24/22 (unknown) (no (unknown) (unknown) diphenhydramine-a (units (unknown) date) cetaminophen unknown) [Acetaminophen PM] 25-500 mg Tablet (unknown) (no (unknown) (unknown) discectomy and (units (unknown) date) unknown) (unknown) (no (unknown) (unknown) docusate sodium (units (unknown) date) 100 mg Capsule unknown) (unknown) (no (unknown) (unknown) docusate sodium (units (unknown) date) 100 mg capsule 100 unknown) mg PO BID PRN Constipation 03/24/22 (unknown) (no (unknown) (unknown) evaluated on CT (units (unknown) date) in there is unknown) metallic artifact however the central canal appears (unknown) (no (unknown) (unknown) fever or chills. (units (unknown) date) [place] are still unknown) in place. Has been ambulatory at home. (unknown) (no (unknown) (unknown) fractures.? (units (un known) date) unknown) (unknown) (no (unknown) (unknown) from narcotic (units ( unknown) date) pain meds #30 caps unknown) (unknown) (no (unknown) (unknown) furosemide 20 mg (units (unknown) date) Tablet unknown) (unknown) (no (unknown) (unknown) furosemide 20 mg (units (unknown) date) tablet 20 mg PO unknown) QAM 03/17/22 03/23/22 (unknown) (no (unknown) (unknown) gabapentin 300 mg (units (unknown) date) Capsule unknown) (unknown) (no (unknown) (unknown) gabapentin 300 mg (units (unknown) date) capsule 300 mg PO unknown) BEDTIME 03/17/22 03/23/22 (unknown) (no (unknown) (unknown) has been (units (unkno wn) date) prescribed for unknown) muscle spasms, do not combine this with your pain (unknown) (no (unknown) (unknown) hepatic segment (units (unknown) date) unknown) (unknown) (no (unknown) (unknown) household (units (unkn own) date) members: spouse unknown) (unknown) (no (unknown) (unknown) hydrocodone 5 (units ( unknown) date) mg-acetaminophen unknown) 325 1 tab PO Q4HR PRN Pain, Moderate 03/24/22 (unknown) (no (unknown) (unknown) hydrocodone-aceta (units (unknown) date) minophen 5-325 mg unknown) Tablet (unknown) (no (unknown) (unknown) hydroxyzine (units (un known) date) pamoate 25 mg unknown) Capsule (unknown) (no (unknown) (unknown) hydroxyzine (units (un known) date) pamoate 25 mg unknown) capsule 25 mg PO Q4HR PRN Muscle 03/24/22 (unknown) (no (unknown) (unknown) hypodensity in (units (unknown) date) the unknown) (unknown) (no (unknown) (unknown) imaging are (units (un known) date) reassuring. unknown) Patient is pain-free at this time. Feels much better. (unknown) (no (unknown) (unknown) infection as (units (u nknown) date) source of her unknown) pain. Likely muscle spasm. Return precautions (unknown) (no (unknown) (unknown) interbody (units (unkn own) date) fixation.? There unknown) has been laminotomy on the right.? Soft tissues are (unknown) (no (unknown) (unknown) interbody (units (unkn own) date) fixation.? There unknown) is been laminotomy on the right.? Facet hypertrophy (unknown) (no (unknown) (unknown) last 2 days now (units (unknown) date) has had pain unknown) without any injury or changes in activity. Is (unknown) (no (unknown) (unknown) ligamentum flavum (units (unknown) date) buckling and bulky unknown) facet hypertrophy is unchanged.? Moderate (unknown) (no (unknown) (unknown) ligamentum flavum (units (unknown) date) hypertrophy unknown) appears to cause persistent severe central canal (unknown) (no (unknown) (unknown) lower stable (units (u nknown) date) incision area. unknown) Increased pain right straight leg raise at 30?. (unknown) (no (unknown) (unknown) lucency.? (units (unkn own) date) Discectomy and unknown) interbody disc placement at L4-5 and L5-S1 is seen. (unknown) (no (unknown) (unknown) medication that (units (unknown) date) was prescribed to unknown) after surgery, do not take them together. Be (unknown) (no (unknown) (unknown) mg tablet (4-6) (units (unknown) date) #42 tabs unknown) (unknown) (no (unknown) (unknown) mg-acetaminophen (units (unknown) date) 500 mg tablet unknown) (unknown) (no (unknown) (unknown) neural foraminal (units (unknown) date) stenosis. unknown) (unknown) (no (unknown) (unknown) not well (units (unkno wn) date) unknown) (unknown) (no (unknown) (unknown) operating (units (unkn own) date) machinery today or unknown) when taking prescribed pain medication. (unknown) (no (unknown) (unknown) perihardware (units (u nknown) date) unknown) (unknown) (no (unknown) (unknown) postop day 8 (units (u nknown) date) status post back unknown) surgery/laminectom y/fusion that was done here by (unknown) (no (unknown) (unknown) postoperative (units ( unknown) date) unknown) (unknown) (no (unknown) (unknown) rales, or (units (unkn own) date) rhonchi. unknown) (unknown) (no (unknown) (unknown) reassuring. At (units (unknown) date) this time no unknown) fever, white cell count normal. Likely not (unknown) (no (unknown) (unknown) region and other (units (unknown) date) (Postoperative unknown) infection/muscle spasm) (unknown) (no (unknown) (unknown) reviewed patient (units (unknown) date) and daughter. They unknown) do desire discharge home. Baclofen will be (unknown) (no (unknown) (unknown) right lobe of the (units (unknown) date) liver hepatic unknown) segment 8 and 1 centimeter hypodensity in (unknown) (no (unknown) (unknown) sennosides 8.6 mg (units (unknown) date) tablet (senna) unknown) 17.2 mg PO BEDTIME PRN 03/24/22 (unknown) (no (unknown) (unknown) sennosides (units (unk nown) date) [senna] 8.6 mg unknown) Tablet (unknown) (no (unknown) (unknown) spasm. Return if (units (unknown) date) worse or if any unknown) questions or concerns. No driving or (unknown) (no (unknown) (unknown) spasms/pain/nause (units (unknown) date) a #20 caps unknown) (unknown) (no (unknown) (unknown) stenosis.? (units (unk nown) date) unknown) (unknown) (no (unknown) (unknown) stenotic. (units (unkn own) date) unknown) (unknown) (no (unknown) (unknown) sure to take them (units (unknown) date) 4 hours apart. unknown) Baclofen to be taken only if you have back (unknown) (no (unknown) (unknown) taking routine (units (unknown) date) pain medication unknown) without any changes. Is taking hydrocodone. No (unknown) (no (unknown) (unknown) the back the past (units (unknown) date) 2 days. I will unknown) prescribe baclofen to help supplement pain (unknown) (no (unknown) (unknown) used:? automated (units (unknown) date) exposure control.? unknown) (unknown) (no (unknown) (unknown) was (units (unkno wn) date) unknown) Result panel 20 (unknown) (no (unknown) (unknown) (no value) (units (unk nown) date) unknown) (unknown) (no (unknown) (unknown) #90 tabs (units (unkno wn) date) unknown) (unknown) (no (unknown) (unknown) <Electronically (units (unknown) date) signed by Ken unknown) MD Elaina> (unknown) (no (unknown) (unknown) (Acetaminophen (units (unknown) date) PM) unknown) (unknown) (no (unknown) (unknown) (can use 25mg of (units (unknown) date) OTC Benadryl for unknown) insomnia instead) (unknown) (no (unknown) (unknown) [id number] (units (unkno wn) date) unknown) (unknown) (no (unknown) (unknown) 08:45 08:45 (units (un known) date) unknown) (unknown) (no (unknown) (unknown) 03/31/22 08:41 (units (unknown) date) unknown) (unknown) (no (unknown) (unknown) 03/31/22 08:45 (units (unknown) date) unknown) (unknown) (no (unknown) (unknown) 03/31/22 03/31/22 (units (unknown) date) Range/Units unknown) (unknown) (no (unknown) (unknown) 03/31/22 1700 (units ( unknown) date) unknown) (unknown) (no (unknown) (unknown) 03/31/22 (units (unkno wn) date) unknown) (unknown) (no (unknown) (unknown) 09:15 03/31/22 (units (unknown) date) unknown) (unknown) (no (unknown) (unknown) 09:30 (units (unkno wn) date) unknown) (unknown) (no (unknown) (unknown) 09:33 03/31/22 (units (unknown) date) unknown) (unknown) (no (unknown) (unknown) 1 tab PO BEDTIME (units (unknown) date) Qty: 30 0RF unknown) (unknown) (no (unknown) (unknown) 1 tab PO Q4HR PRN (units (unknown) date) (Reason: Pain, unknown) Moderate (4-6)) Qty: 42 0RF (unknown) (no (unknown) (unknown) 10 mg PO BEDTIME (units (unknown) date) unknown) (unknown) (no (unknown) (unknown) 100 mg PO BID PRN (units (unknown) date) (Reason: unknown) Constipation from narcotic pain meds) Qty: 30 0RF (unknown) (no (unknown) (unknown) 10:00 (units (unkno wn) date) unknown) (unknown) (no (unknown) (unknown) 10:01 03/31/22 (units (unknown) date) unknown) (unknown) (no (unknown) (unknown) 10:30 (units (unkno wn) date) unknown) (unknown) (no (unknown) (unknown) 10:31 03/31/22 (units (unknown) date) unknown) (unknown) (no (unknown) (unknown) 10:31 (units (unkno wn) date) unknown) (unknown) (no (unknown) (unknown) [address] [place] [address] (units (unknown) date) unknown) (unknown) (no (unknown) (unknown) 17.2 mg PO (units (unk nown) date) BEDTIME PRN unknown) (Reason: constipation) Qty: 14 0RF (unknown) (no (unknown) (unknown) 20 mg PO QAM (units (u nknown) date) unknown) (unknown) (no (unknown) (unknown) 20 mg PO TID Qty: (units (unknown) date) 18 0RF unknown) (unknown) (no (unknown) (unknown) 25 mg PO Q4HR PRN (units (unknown) date) (Reason: Muscle unknown) spasms/pain/nausea ) Qty: 20 0RF (unknown) (no (unknown) (unknown) 3)) Qty: 90 0RF (units (unknown) date) unknown) (unknown) (no (unknown) (unknown) 300 mg PO BEDTIME (units (unknown) date) unknown) (unknown) (no (unknown) (unknown) 325 mg PO Q4H MDD (units (unknown) date) Max 3000mg/day unknown) from all source PRN (Reason: Pain, Mild (1 (unknown) (no (unknown) (unknown) 6 are both (units (unk nown) date) unchanged compared unknown) to the prior CT likely cysts or hemangiomas.? (unknown) (no (unknown) (unknown) ? (units (unkno wn) date) unknown) (unknown) (no (unknown) (unknown) ALT 67 H (<35) (units (unknown) date) IU/L unknown) (unknown) (no (unknown) (unknown) AST 67 H (14-36) (units (unknown) date) IU/L unknown) (unknown) (no (unknown) (unknown) Accession Number: (units (unknown) date) [id number] ?? unknown) (unknown) (no (unknown) (unknown) Acct:[id number] (units (unknown) date) unknown) (unknown) (no (unknown) (unknown) Activity (units (unkno wn) date) Restrictions/Addit unknown) ional Instructions: (unknown) (no (unknown) (unknown) Age/Sex: 86 / F (units (unknown) date) unknown) (unknown) (no (unknown) (unknown) Albumin 3.6 (units (un known) date) (3.5-5.0) g/dL unknown) (unknown) (no (unknown) (unknown) Albumin/Globulin (units (unknown) date) Ratio 1.2 unknown) (1.0-2.8) (unknown) (no (unknown) (unknown) Alkaline (units (unkno wn) date) Phosphatase 93 unknown) (38-126) U/L (unknown) (no (unknown) (unknown) Allergies (units (unkn own) date) unknown) (unknown) (no (unknown) (unknown) Allergy/AdvReac (units (unknown) date) Type Severity unknown) Reaction Status Date / Time (unknown) (no (unknown) (unknown) JANA Villalba (units ( unknown) date) [id number] unknown) (unknown) (no (unknown) (unknown) Appropriate for (units (unknown) date) discharge home. unknown) Exam and laboratory studies and imaging are (unknown) (no (unknown) (unknown) Approved by: (units (u nknown) date) Giacomo Hickman, yohana) Del on 03/31/2022 at 9:16 ? (unknown) (no (unknown) (unknown) BACK: No flank (units (unknown) date) tenderness. unknown) Samson all 4 sites clean dry intact incision area. (unknown) (no (unknown) (unknown) BUN 10 (7-17) (units ( unknown) date) mg/dL unknown) (unknown) (no (unknown) (unknown) BUN/Creatinine (units (unknown) date) Ratio 13.9 (6-22) unknown) (unknown) (no (unknown) (unknown) Baso # (Auto) 0 (units (unknown) date) (0-100) /uL unknown) (unknown) (no (unknown) (unknown) Baso % (Auto) 0.3 (units (unknown) date) (0-2) % unknown) (unknown) (no (unknown) (unknown) Blood Pressure (units (unknown) date) 130/62 unknown) (unknown) (no (unknown) (unknown) Blood Pressure (units (unknown) date) 143/66 H unknown) (unknown) (no (unknown) (unknown) Blood Pressure (units (unknown) date) 156/68 H unknown) (unknown) (no (unknown) (unknown) Blood Pressure (units (unknown) date) 181/77 H 03/31/22 unknown) 08:17 (unknown) (no (unknown) (unknown) Blood Pressure (units (unknown) date) 187/74 H unknown) (unknown) (no (unknown) (unknown) Bones:? There is (units (unknown) date) normal bony unknown) alignment.? No acute vertebral body compression (unknown) (no (unknown) (unknown) CARDIOVASCULAR: (units (unknown) date) Denies chest pain, unknown) palpitations (unknown) (no (unknown) (unknown) CARDIOVASCULAR: (units (unknown) date) Regular rate and unknown) rhythm without murmurs (unknown) (no (unknown) (unknown) CBC Auto Diff (units ( unknown) date) [Complete Blood unknown) Count AUTO DIFF] Stat (unknown) (no (unknown) (unknown) CMP (units (unkno wn) date) [Comprehensive unknown) Metabolic Panel] Stat (unknown) (no (unknown) (unknown) COMPARISON:? (units (u nknown) date) [facility], unknown) CT, CT LUMBAR SPINE WO CON, 03/02/2022, 11:17. (unknown) (no (unknown) (unknown) CT Scan Report (units (unknown) date) unknown) (unknown) (no (unknown) (unknown) CT lumbar spine (units (unknown) date) wo con Stat unknown) (unknown) (no (unknown) (unknown) CT lumbar spine: (units (unknown) date) unknown) (unknown) (no (unknown) (unknown) Calcium 8.9 (units (un known) date) (8.4-10.2) mg/dL unknown) (unknown) (no (unknown) (unknown) Carbon Dioxide 30 (units (unknown) date) (22-32) mmol/L unknown) (unknown) (no (unknown) (unknown) Chief Complaint: (units (unknown) date) Back Pain/Injury unknown) (unknown) (no (unknown) (unknown) Chloride 101 (units (u nknown) date) (98-107) mmol/L unknown) (unknown) (no (unknown) (unknown) Clinical (units (unkno wn) date) Impression: unknown) (unknown) (no (unknown) (unknown) Course Narrative: (units (unknown) date) unknown) (unknown) (no (unknown) (unknown) Course (units (unkno wn) date) unknown) (unknown) (no (unknown) (unknown) Creatinine 0.72 (units (unknown) date) (0.52-1.04) mg/dL unknown) (unknown) (no (unknown) (unknown) : 1935 (units (unknown) date) Acct:[id number] unknown) (unknown) (no (unknown) (unknown) : 1935 (units (unknown) date) unknown) (unknown) (no (unknown) (unknown) Pamella Ortega, (units (unknown) date) [Primary Care unknown) Provider] (unknown) (no (unknown) (unknown) Date of Service: (units (unknown) date) 03/31/22 unknown) (unknown) (no (unknown) (unknown) Departure (units (unkn own) date) unknown) (unknown) (no (unknown) (unknown) Dictated by: (units (u nknown) date) denisha Melendez M.D. on 03/31/2022 at 9:01 ? ? (unknown) (no (unknown) (unknown) Differential (units (u nknown) date) Diagnosis unknown) (unknown) (no (unknown) (unknown) Differential (units (u nknown) date) diagnosis: Likely unknown) lumbar radiculopathy, sciatica, strain of lumbar (unknown) (no (unknown) (unknown) Discharge Plan (units (unknown) date) unknown) (unknown) (no (unknown) (unknown) Discontinued (units (u nknown) date) Medications unknown) (unknown) (no (unknown) (unknown) Documented By: BT (units (unknown) date) unknown) (unknown) (no (unknown) (unknown) Dr. Arciniega. She has (units (unknown) date) been doing well in unknown) the 1st few days postoperative. However (unknown) (no (unknown) (unknown) ED Orders (units (unkn own) date) unknown) (unknown) (no (unknown) (unknown) ENT: Mucous (units (un known) date) membranes moist. unknown) (unknown) (no (unknown) (unknown) ER Physician: (units ( unknown) date) Ken Delaney MD unknown) (unknown) (no (unknown) (unknown) EXTREMITIES: No (units (unknown) date) gross deformities. unknown) Calves or warm soft and pink. No palpable (unknown) (no (unknown) (unknown) EYES: Pupils (units (u nknown) date) equal round No unknown) scleral icterus. (unknown) (no (unknown) (unknown) Edema (units (unkno wn) date) unknown) (unknown) (no (unknown) (unknown) Emergency Report (units (unknown) date) unknown) (unknown) (no (unknown) (unknown) Eos # (Auto) 100 (units (unknown) date) (0-450) /uL unknown) (unknown) (no (unknown) (unknown) Eos % (Auto) 2.1 (units (unknown) date) (2-4) % unknown) (unknown) (no (unknown) (unknown) Estimated GFR > (units (unknown) date) 60 (>60) mL/min unknown) (unknown) (no (unknown) (unknown) Exam Narrative: (units (unknown) date) unknown) (unknown) (no (unknown) (unknown) Exam (units (unkno wn) date) unknown) (unknown) (no (unknown) (unknown) FINDINGS:? (units (unk nown) date) unknown) (unknown) (no (unknown) (unknown) GASTROINTESTINAL: (units (unknown) date) Abdomen soft, unknown) non-tender (unknown) (no (unknown) (unknown) GASTROINTESTINAL: (units (unknown) date) Denies nausea, unknown) vomiting, abdominal pain (unknown) (no (unknown) (unknown) GENERAL: Denies (units (unknown) date) chills, fatigue, unknown) malaise, fever, sweats. (unknown) (no (unknown) (unknown) GENERAL: in no (units (unknown) date) distress, not unknown) toxic not dyspneic (unknown) (no (unknown) (unknown) : Denies (units (unk nown) date) dysuria, unknown) frequency, hematuria (unknown) (no (unknown) (unknown) General (units (unkno wn) date) unknown) (unknown) (no (unknown) (unknown) Globulin 3.1 (units (u nknown) date) (1.7-4.1) g/dL unknown) (unknown) (no (unknown) (unknown) Glucose 118 H (units ( unknown) date) (80-110) mg/dL unknown) (unknown) (no (unknown) (unknown) HEAD: (units (unkno wn) date) Normocephalic. unknown) (unknown) (no (unknown) (unknown) HEENT: Denies (units ( unknown) date) sinus pain, ear unknown) pain, sore throat (unknown) (no (unknown) (unknown) HLD (units (unkno wn) date) (hyperlipidemia) unknown) (unknown) (no (unknown) (unknown) HPI - Back (units (unk nown) date) Pain/Injury unknown) (unknown) (no (unknown) (unknown) HPI Narrative: (units (unknown) date) unknown) (unknown) (no (unknown) (unknown) Hct 31.0 L (units (unk nown) date) (36-46) % unknown) (unknown) (no (unknown) (unknown) Hgb 10.8 L (units (unk nown) date) (12.0-16.0) g/dL unknown) (unknown) (no (unknown) (unknown) History of (units (unk nown) date) Present Illness unknown) (unknown) (no (unknown) (unknown) History of (units (unk nown) date) hysterectomy unknown) (unknown) (no (unknown) (unknown) History of total (units (unknown) date) left hip unknown) arthroplasty (unknown) (no (unknown) (unknown) History of total (units (unknown) date) right hip unknown) arthroplasty (unknown) (no (unknown) (unknown) Home Medications (units (unknown) date) unknown) (unknown) (no (unknown) (unknown) Hx of bilateral (units (unknown) date) cataract unknown) extraction (unknown) (no (unknown) (unknown) Hx of dilation (units (unknown) date) and curettage unknown) (unknown) (no (unknown) (unknown) Hx of (units (unkno wn) date) tonsillectomy unknown) (unknown) (no (unknown) (unknown) Hydromorphone HCl (units (unknown) date) (Hydromorphone 1 unknown) Mg Inj) 1 mg IV NOW ONE (unknown) (no (unknown) (unknown) IMPRESSION:? (units (u nknown) date) Postoperative unknown) changes as above with severe central canal stenosis (unknown) (no (unknown) (unknown) INDICATIONS:? (units ( unknown) date) Postoperative pain unknown) SURG 03-23-22 (unknown) (no (unknown) (unknown) Image quality:? (units (unknown) date) Excellent.? unknown) (unknown) (no (unknown) (unknown) Imaging Data (units (u nknown) date) unknown) (unknown) (no (unknown) (unknown) Initial Vital (units ( unknown) date) Signs unknown) (unknown) (no (unknown) (unknown) Initial Vital (units ( unknown) date) Signs: unknown) (unknown) (no (unknown) (unknown) Instructions: DI (units (unknown) date) for Back Spasm unknown) (unknown) (no (unknown) (unknown) [facility] (units (unknown) date) [address] unknown) [place] [address] (unknown) (no (unknown) (unknown) [facility] (units (unknown) date) unknown) (unknown) (no (unknown) (unknown) L1-L2:? No change (units (unknown) date) compared to unknown) 03/02/2022. (unknown) (no (unknown) (unknown) L2-L3:? No change (units (unknown) date) compared to unknown) 03/02/2022. (unknown) (no (unknown) (unknown) L3-L4:? No change (units (unknown) date) compared to unknown) 03/02/2022.? Severe central canal stenosis due to (unknown) (no (unknown) (unknown) L4-5, and L5-S1. (units (unknown) date) unknown) (unknown) (no (unknown) (unknown) L4-L5:? (units (unkno wn) date) Postoperative unknown) changes of pedicular screw and cecilia fixation with (unknown) (no (unknown) (unknown) L5-S1:? (units (unkno wn) date) Postoperative unknown) changes of pedicular screw and cecilia fixation with (unknown) (no (unknown) (unknown) Lab Data (units (unkno wn) date) unknown) (unknown) (no (unknown) (unknown) Lab Results (units (un known) date) unknown) (unknown) (no (unknown) (unknown) Labs: (units (unkno wn) date) unknown) (unknown) (no (unknown) (unknown) Last Admin: (units (un known) date) 03/31/22 09:15 unknown) Dose: 1 mg (unknown) (no (unknown) (unknown) Last Admin: (units (un known) date) 03/31/22 09:15 unknown) Dose: 4 mg (unknown) (no (unknown) (unknown) Left leg straight (units (unknown) date) raise pain at 60?. unknown) Patient able to log roll to the right with (unknown) (no (unknown) (unknown) Loc: ED (units (unkno wn) date) unknown) (unknown) (no (unknown) (unknown) Lymph # (Auto) (units (unknown) date) 1400 (9713-2483) unknown) /uL (unknown) (no (unknown) (unknown) Lymph % (Auto) (units (unknown) date) 24.6 L (25-40) % unknown) (unknown) (no (unknown) (unknown) MCH 29.7 (26-34) (units (unknown) date) PG unknown) (unknown) (no (unknown) (unknown) MCHC 34.9 (30-36) (units (unknown) date) % unknown) (unknown) (no (unknown) (unknown) MCV 85.0 (80-100) (units (unknown) date) fL unknown) (unknown) (no (unknown) (unknown) MDM - Back (units (unk nown) date) Pain/Injury unknown) (unknown) (no (unknown) (unknown) MDM Narrative (units ( unknown) date) unknown) (unknown) (no (unknown) (unknown) MR#: [id number] (units (unknown) date) unknown) (unknown) (no (unknown) (unknown) MUSCULOSKELETAL: (units (unknown) date) Positive for unknown) muscle or bony pain (unknown) (no (unknown) (unknown) Max 3000 mg of (units (unknown) date) acetaminophen per unknown) day from all sources (unknown) (no (unknown) (unknown) Medical History (units (unknown) date) (Reviewed 03/31/22 unknown) @ 08:43 by Ken Delaney MD) (unknown) (no (unknown) (unknown) Medical decision (units (unknown) date) making narrative: unknown) (unknown) (no (unknown) (unknown) Medication (units (unk nown) date) Instructions unknown) Recorded Confirmed (unknown) (no (unknown) (unknown) Medication (units (unk nown) date) Instructions unknown) Recorded (unknown) (no (unknown) (unknown) [place] # (Auto) 400 (units (unknown) date) (0-900) /uL unknown) (unknown) (no (unknown) (unknown) [place] % (Auto) 6.6 (units (unknown) date) (3-14) % unknown) (unknown) (no (unknown) (unknown) Muscle spasm of (units (unknown) date) back unknown) (unknown) (no (unknown) (unknown) NECK: Trachea (units ( unknown) date) midline. unknown) (unknown) (no (unknown) (unknown) NEURO: AOx4. (units (u nknown) date) unknown) (unknown) (no (unknown) (unknown) NEUROLOGIC: (units (un known) date) Denies weakness, unknown) numbness (unknown) (no (unknown) (unknown) Narrative (units (unkn own) date) unknown) (unknown) (no (unknown) (unknown) Narrative: (units (unk nown) date) unknown) (unknown) (no (unknown) (unknown) Neut # (Auto) (units ( unknown) date) 3700 (3396-6780) unknown) /uL (unknown) (no (unknown) (unknown) Neut % (Auto) (units ( unknown) date) 66.4 (50-75) % unknown) (unknown) (no (unknown) (unknown) New (units (unkno wn) date) unknown) (unknown) (no (unknown) (unknown) No Action (units (unkn own) date) unknown) (unknown) (no (unknown) (unknown) No Known Drug (units ( unknown) date) Allergies Allergy unknown) Unverified 07/10/21 14:09 (unknown) (no (unknown) (unknown) No erythema (units (un known) date) induration or unknown) fluctuance. However there is tenderness to the right (unknown) (no (unknown) (unknown) No new issues (units ( unknown) date) during course of unknown) stay (unknown) (no (unknown) (unknown) No suspicious (units ( unknown) date) lytic or blastic unknown) bony lesions.? No pars defects.? There are (unknown) (no (unknown) (unknown) Noncontrast 3 mm (units (unknown) date) thick sections unknown) acquired from the T12 level to the sacrum.? (unknown) (no (unknown) (unknown) Ondansetron HCl (units (unknown) date) (Ondansetron 4 unknown) Mg/2 Ml Inj) 4 mg IV NOW ONE (unknown) (no (unknown) (unknown) Ordered: (units (unkno wn) date) unknown) (unknown) (no (unknown) (unknown) Ordering (units (unkno wn) date) Provider: unknown) Ken Delaney MD (unknown) (no (unknown) (unknown) Orders (units (unkno wn) date) unknown) (unknown) (no (unknown) (unknown) Oxygen Delivery (units (unknown) date) Method 03/31/22 unknown) 08:17 (unknown) (no (unknown) (unknown) PROCEDURE:? CT (units (unknown) date) LUMBAR SPINE WO unknown) CON (unknown) (no (unknown) (unknown) PSYCH: Not (units (unk nown) date) anxious, is unknown) cooperative (unknown) (no (unknown) (unknown) Patient (units (unkno wn) date) Disposition: Home unknown) (unknown) (no (unknown) (unknown) Patient History (units (unknown) date) unknown) (unknown) (no (unknown) (unknown) Patient brought (units (unknown) date) here by daughter unknown) from home. Complains of right lower back pain (unknown) (no (unknown) (unknown) Patient: (units (unkno wn) date) Tonja Connolly unknown) MR#: [id number] (unknown) (no (unknown) (unknown) Patient: (units (unkno wn) date) Tonja Connolly unknown) (unknown) (no (unknown) (unknown) Plt Count 234 (units ( unknown) date) (150-400) X103/uL unknown) (unknown) (no (unknown) (unknown) Potassium 3.7 (units ( unknown) date) (3.4-5.1) mmol/L unknown) (unknown) (no (unknown) (unknown) Prescriptions: (units (unknown) date) unknown) (unknown) (no (unknown) (unknown) Previous Rx's (units ( unknown) date) unknown) (unknown) (no (unknown) (unknown) Procedure: CT (units ( unknown) date) lumbar spine wo unknown) con (unknown) (no (unknown) (unknown) Pulse Oximetry (units (unknown) date) 100 unknown) (unknown) (no (unknown) (unknown) Pulse Oximetry 97 (units (unknown) date) 03/31/22 08:17 unknown) (unknown) (no (unknown) (unknown) Pulse Oximetry 97 (units (unknown) date) 95 unknown) (unknown) (no (unknown) (unknown) Pulse Oximetry 99 (units (unknown) date) 100 unknown) (unknown) (no (unknown) (unknown) Pulse Oximetry 99 (units (unknown) date) 99 unknown) (unknown) (no (unknown) (unknown) Pulse Rate 72 75 (units (unknown) date) unknown) (unknown) (no (unknown) (unknown) Pulse Rate 76 (units ( unknown) date) unknown) (unknown) (no (unknown) (unknown) Pulse Rate 82 72 (units (unknown) date) unknown) (unknown) (no (unknown) (unknown) Pulse Rate 84 94 (units (unknown) date) H unknown) (unknown) (no (unknown) (unknown) Pulse Rate 86 (units ( unknown) date) 03/31/22 08:17 unknown) (unknown) (no (unknown) (unknown) RBC 3.65 L (units (unk nown) date) (4.0-5.2) X106/uL unknown) (unknown) (no (unknown) (unknown) RDW 12.6 (units (unkno wn) date) (11.6-14.8) % unknown) (unknown) (no (unknown) (unknown) RESPIRATORY: Clear (units (unknown) date) to auscultation. unknown) Breath sounds equal bilaterally. No wheezes, (unknown) (no (unknown) (unknown) RESPIRATORY: (units (u nknown) date) Denies dyspnea, unknown) cough (unknown) (no (unknown) (unknown) ROS Unobtainable: (units (unknown) date) All systems unknown) reviewed + are unremarkable except as noted in HPI (unknown) (no (unknown) (unknown) Radiologist's (units ( unknown) date) Impression: unknown) (unknown) (no (unknown) (unknown) Reevaluation #1: (units (unknown) date) unknown) (unknown) (no (unknown) (unknown) Reevaluation(s) (units (unknown) date) unknown) (unknown) (no (unknown) (unknown) Referrals: (units (unk nown) date) unknown) (unknown) (no (unknown) (unknown) Related Data (units (u nknown) date) unknown) (unknown) (no (unknown) (unknown) Respiratory Rate (units (unknown) date) 18 03/31/22 08:17 unknown) (unknown) (no (unknown) (unknown) Result diagrams: (units (unknown) date) unknown) (unknown) (no (unknown) (unknown) Review of Systems (units (unknown) date) unknown) (unknown) (no (unknown) (unknown) Reviewed results (units (unknown) date) with patient and unknown) daughter. At the same laboratory studies and (unknown) (no (unknown) (unknown) Rx Instructions: (units (unknown) date) unknown) (unknown) (no (unknown) (unknown) SKIN: Denies (units (u nknown) date) rash, skin lesions unknown) (unknown) (no (unknown) (unknown) SKIN: Warm and (units (unknown) date) dry unknown) (unknown) (no (unknown) (unknown) Sagittal and (units (u nknown) date) unknown) (unknown) (no (unknown) (unknown) Sciatica (units (unkno wn) date) unknown) (unknown) (no (unknown) (unknown) See ortho spine (units (unknown) date) surgeon as unknown) scheduled for your follow-up appointment. Baclofen (unknown) (no (unknown) (unknown) Series 3, image (units (unknown) date) 70. unknown) (unknown) (no (unknown) (unknown) Short-term memory (units (unknown) date) loss unknown) (unknown) (no (unknown) (unknown) Signed By: (units (unk nown) date) unknown) (unknown) (no (unknown) (unknown) Signed (units (unkno wn) date) unknown) (unknown) (no (unknown) (unknown) Smoking Status: (units (unknown) date) Former smoker unknown) (unknown) (no (unknown) (unknown) Social History (units (unknown) date) (Reviewed 03/31/22 unknown) @ 08:43 by Ken Delaney MD) (unknown) (no (unknown) (unknown) Sodium 140 (units (unk nown) date) (137-145) mmol/L unknown) (unknown) (no (unknown) (unknown) Soft tissues:? No (units (unknown) date) retroperitoneal unknown) masses or hematomas.? 1.1 centimeter (unknown) (no (unknown) (unknown) Source: patient (units (unknown) date) unknown) (unknown) (no (unknown) (unknown) Spinal stenosis (units (unknown) date) unknown) (unknown) (no (unknown) (unknown) Stated Complaint: (units (unknown) date) Severe back/leg unknown) pain post spinal surg last week (unknown) (no (unknown) (unknown) Stop: 03/31/22 (units (unknown) date) 08:41 unknown) (unknown) (no (unknown) (unknown) Substance Use (units ( unknown) date) Type: does not use unknown) (unknown) (no (unknown) (unknown) Surgical History (units (unknown) date) (Reviewed 03/31/22 unknown) @ 08:43 by Ken Delaney MD) (unknown) (no (unknown) (unknown) T12-L1:? No (units (un known) date) significant disc unknown) bulge. The foramina and central canal are patent. (unknown) (no (unknown) (unknown) TECHNIQUE:? (units (un known) date) unknown) (unknown) (no (unknown) (unknown) Temperature 97.5 (units (unknown) date) F L 03/31/22 08:17 unknown) (unknown) (no (unknown) (unknown) They do desire (units (unknown) date) discharge home. unknown) Reviewed with them likely had muscular spasm of (unknown) (no (unknown) (unknown) Time Seen by (units (u nknown) date) Provider: 03/31/22 unknown) 08:31 (unknown) (no (unknown) (unknown) Time: 10:32 (units (un known) date) unknown) (unknown) (no (unknown) (unknown) Total Bilirubin (units (unknown) date) 0.6 (0.2-1.3) unknown) mg/dL (unknown) (no (unknown) (unknown) Total Protein 6.7 (units (unknown) date) (6.3-8.2) g/dL unknown) (unknown) (no (unknown) (unknown) Using a walker. (units (unknown) date) Brought in by unknown) private vehicle. (unknown) (no (unknown) (unknown) Visit Report (units (u nknown) date) Forms: Patient unknown) Portal/API (unknown) (no (unknown) (unknown) Visualized (units (unk nown) date) unknown) (unknown) (no (unknown) (unknown) Vital Signs - 8 (units (unknown) date) hr unknown) (unknown) (no (unknown) (unknown) Vital Signs (units (un known) date) unknown) (unknown) (no (unknown) (unknown) Vital signs: (units (u nknown) date) unknown) (unknown) (no (unknown) (unknown) WBC 5.6 (units (unkno wn) date) (4.5-11.0) X103/uL unknown) (unknown) (no (unknown) (unknown) [Embedded Image (units (unknown) date) Not Available] unknown) (unknown) (no (unknown) (unknown) acetaminophen 325 (units (unknown) date) mg Tablet unknown) (unknown) (no (unknown) (unknown) acetaminophen 325 (units (unknown) date) mg tablet 325 mg unknown) PO Q4H PRN Pain, Mild (1-3) 03/24/22 (unknown) (no (unknown) (unknown) added to help for (units (unknown) date) muscle spasms. Not unknown) toxic at discharge (unknown) (no (unknown) (unknown) alcohol intake (units (unknown) date) frequency: a few unknown) times a week (unknown) (no (unknown) (unknown) alcohol intake: (units (unknown) date) current unknown) (unknown) (no (unknown) (unknown) and below (units (unkn own) date) unknown) (unknown) (no (unknown) (unknown) and (units (unkno wn) date) unknown) (unknown) (no (unknown) (unknown) aorta is normal (units (unknown) date) in caliber.? unknown) (unknown) (no (unknown) (unknown) as well as low (units (unknown) date) back pain that unknown) rates her left leg. No calf pain. Patient is (unknown) (no (unknown) (unknown) assist (units (unkno wn) date) unknown) (unknown) (no (unknown) (unknown) at L3-4, (units (unkno wn) date) unknown) (unknown) (no (unknown) (unknown) atorvastatin 10 (units (unknown) date) mg Tablet unknown) (unknown) (no (unknown) (unknown) atorvastatin 10 (units (unknown) date) mg tablet 10 mg PO unknown) BEDTIME 03/17/22 03/23/22 (unknown) (no (unknown) (unknown) baclofen 20 mg (units (unknown) date) tablet 20 mg PO unknown) TID #18 tabs 03/31/22 (unknown) (no (unknown) (unknown) baclofen 20 mg (units (unknown) date) tablet unknown) (unknown) (no (unknown) (unknown) bilateral (units (unkn own) date) unknown) (unknown) (no (unknown) (unknown) changes of (units (unk nown) date) pedicular screw unknown) and cecilia fixation spanning from L4 through S1.? No (unknown) (no (unknown) (unknown) constipation #14 (units (unknown) date) tabs unknown) (unknown) (no (unknown) (unknown) control. They (units ( unknown) date) agree with unknown) treatment plan (unknown) (no (unknown) (unknown) cords. Normal (units ( unknown) date) Cooley test and unknown) Homans test (unknown) (no (unknown) (unknown) coronal reformats (units (unknown) date) were constructed.? unknown) For radiation dose reduction, the following (unknown) (no (unknown) (unknown) diphenhydramine (units (unknown) date) 25 1 tab PO unknown) BEDTIME #30 tabs 03/24/22 (unknown) (no (unknown) (unknown) diphenhydramine-a (units (unknown) date) cetaminophen unknown) [Acetaminophen PM] 25-500 mg Tablet (unknown) (no (unknown) (unknown) discectomy and (units (unknown) date) unknown) (unknown) (no (unknown) (unknown) docusate sodium (units (unknown) date) 100 mg Capsule unknown) (unknown) (no (unknown) (unknown) docusate sodium (units (unknown) date) 100 mg capsule 100 unknown) mg PO BID PRN Constipation 03/24/22 (unknown) (no (unknown) (unknown) evaluated on CT (units (unknown) date) in there is unknown) metallic artifact however the central canal appears (unknown) (no (unknown) (unknown) fever or chills. (units (unknown) date) Samson are still unknown) in place. Has been ambulatory at home. (unknown) (no (unknown) (unknown) fractures.? (units (un known) date) unknown) (unknown) (no (unknown) (unknown) from narcotic (units ( unknown) date) pain meds #30 caps unknown) (unknown) (no (unknown) (unknown) furosemide 20 mg (units (unknown) date) Tablet unknown) (unknown) (no (unknown) (unknown) furosemide 20 mg (units (unknown) date) tablet 20 mg PO unknown) QAM 03/17/22 03/23/22 (unknown) (no (unknown) (unknown) gabapentin 300 mg (units (unknown) date) Capsule unknown) (unknown) (no (unknown) (unknown) gabapentin 300 mg (units (unknown) date) capsule 300 mg PO unknown) BEDTIME 03/17/22 03/23/22 (unknown) (no (unknown) (unknown) has been (units (unkno wn) date) prescribed for unknown) muscle spasms, do not combine this with your pain (unknown) (no (unknown) (unknown) hepatic segment (units (unknown) date) unknown) (unknown) (no (unknown) (unknown) household (units (unkn own) date) members: spouse unknown) (unknown) (no (unknown) (unknown) hydrocodone 5 (units ( unknown) date) mg-acetaminophen unknown) 325 1 tab PO Q4HR PRN Pain, Moderate 03/24/22 (unknown) (no (unknown) (unknown) hydrocodone-aceta (units (unknown) date) minophen 5-325 mg unknown) Tablet (unknown) (no (unknown) (unknown) hydroxyzine (units (un known) date) pamoate 25 mg unknown) Capsule (unknown) (no (unknown) (unknown) hydroxyzine (units (un known) date) pamoate 25 mg unknown) capsule 25 mg PO Q4HR PRN Muscle 03/24/22 (unknown) (no (unknown) (unknown) hypodensity in (units (unknown) date) the unknown) (unknown) (no (unknown) (unknown) imaging are (units (un known) date) reassuring. unknown) Patient is pain-free at this time. Feels much better. (unknown) (no (unknown) (unknown) infection as (units (u nknown) date) source of her unknown) pain. Likely muscle spasm. Return precautions (unknown) (no (unknown) (unknown) interbody (units (unkn own) date) fixation.? There unknown) has been laminotomy on the right.? Soft tissues are (unknown) (no (unknown) (unknown) interbody (units (unkn own) date) fixation.? There unknown) is been laminotomy on the right.? Facet hypertrophy (unknown) (no (unknown) (unknown) last 2 days now (units (unknown) date) has had pain unknown) without any injury or changes in activity. Is (unknown) (no (unknown) (unknown) ligamentum flavum (units (unknown) date) buckling and bulky unknown) facet hypertrophy is unchanged.? Moderate (unknown) (no (unknown) (unknown) ligamentum flavum (units (unknown) date) hypertrophy unknown) appears to cause persistent severe central canal (unknown) (no (unknown) (unknown) lower stable (units (u nknown) date) incision area. unknown) Increased pain right straight leg raise at 30?. (unknown) (no (unknown) (unknown) lucency.? (units (unkn own) date) Discectomy and unknown) interbody disc placement at L4-5 and L5-S1 is seen. (unknown) (no (unknown) (unknown) medication that (units (unknown) date) was prescribed to unknown) after surgery, do not take them together. Be (unknown) (no (unknown) (unknown) mg tablet (4-6) (units (unknown) date) #42 tabs unknown) (unknown) (no (unknown) (unknown) mg-acetaminophen (units (unknown) date) 500 mg tablet unknown) (unknown) (no (unknown) (unknown) neural foraminal (units (unknown) date) stenosis. unknown) (unknown) (no (unknown) (unknown) not well (units (unkno wn) date) unknown) (unknown) (no (unknown) (unknown) operating (units (unkn own) date) machinery today or unknown) when taking prescribed pain medication. (unknown) (no (unknown) (unknown) perihardware (units (u nknown) date) unknown) (unknown) (no (unknown) (unknown) postop day 8 (units (u nknown) date) status post back unknown) surgery/laminectom y/fusion that was done here by (unknown) (no (unknown) (unknown) postoperative (units ( unknown) date) unknown) (unknown) (no (unknown) (unknown) rales, or (units (unkn own) date) rhonchi. unknown) (unknown) (no (unknown) (unknown) reassuring. At (units (unknown) date) this time no unknown) fever, white cell count normal. Likely not (unknown) (no (unknown) (unknown) region and other (units (unknown) date) (Postoperative unknown) infection/muscle spasm) (unknown) (no (unknown) (unknown) reviewed patient (units (unknown) date) and daughter. They unknown) do desire discharge home. Baclofen will be (unknown) (no (unknown) (unknown) right lobe of the (units (unknown) date) liver hepatic unknown) segment 8 and 1 centimeter hypodensity in (unknown) (no (unknown) (unknown) sennosides 8.6 mg (units (unknown) date) tablet (senna) unknown) 17.2 mg PO BEDTIME PRN 03/24/22 (unknown) (no (unknown) (unknown) sennosides (units (unk nown) date) [senna] 8.6 mg unknown) Tablet (unknown) (no (unknown) (unknown) spasm. Return if (units (unknown) date) worse or if any unknown) questions or concerns. No driving or (unknown) (no (unknown) (unknown) spasms/pain/nause (units (unknown) date) a #20 caps unknown) (unknown) (no (unknown) (unknown) stenosis.? (units (unk nown) date) unknown) (unknown) (no (unknown) (unknown) stenotic. (units (unkn own) date) unknown) (unknown) (no (unknown) (unknown) sure to take them (units (unknown) date) 4 hours apart. unknown) Baclofen to be taken only if you have back (unknown) (no (unknown) (unknown) taking routine (units (unknown) date) pain medication unknown) without any changes. Is taking hydrocodone. No (unknown) (no (unknown) (unknown) the back the past (units (unknown) date) 2 days. I will unknown) prescribe baclofen to help supplement pain (unknown) (no (unknown) (unknown) used:? automated (units (unknown) date) exposure control.? unknown) (unknown) (no (unknown) (unknown) was (units (unkno wn) date) unknown) Social History No information. Vital Signs No information.
[2022-04-01 14:11] LABS: BASOPHILS % (AUTO) 0.2 %; EOSINOPHILS # (AUTO) 0.2 10^3/uL (0.0-0.7); EOSINOPHILS % (AUTO) 3.1 %; HCT - HEMATOCRIT 31.8 % (37.0-47.0); HGB - HEMOGLOBIN 10.9 g/dL (12.0-16.0); LYMPHOCYTES % (AUTO) 34.2 %; MEAN CORPUSCULAR HEMOGLOBIN 29.9 pg (27.0-31.0); MEAN CORPUSCULAR HGB CONC 34.3 g/dL (32.0-36.0); MEAN CORPUSCULAR VOLUME 87.1 fL (81.0-99.0); MEAN PLATELET VOLUME 8.9 fL (7.9-10.8); MONOCYTES # (AUTO) 0.5 10^3/uL (0.0-1.0); MONOCYTES % (AUTO) 8.4 %; NEUTROPHILS # (AUTO) 3.1 10^3/uL (1.5-6.6); NEUTROPHILS % (AUTO) 53.9 %; PLT - PLATELET COUNT 240 10^3/uL (130-450); RED BLOOD COUNT 3.65 10^6/uL (4.20-5.40); RED CELL DISTRIBUTION WIDTH 11.9 % (12.0-15.0); WHITE BLOOD COUNT 5.7 x10^3/uL (4.8-10.8)
[2022-04-01 14:24] LABS: ALBUMIN 3.3 g/dL (3.2-5.5); BILIRUBIN,TOTAL 0.8 mg/dL (0.2-1.0); CALCIUM 9.3 mg/dL (8.5-10.3); CREATININE 0.8 mg/dL (0.4-1.0); POTASSIUM 4.2 mmol/L (3.5-5.0); TOTAL PROTEIN 6.7 g/dL (6.7-8.2)
[2022-04-01 18:37] VITALS: BP 120/68
== END 2022-04-01 18:37 | disposition home or self-care (01) ==
LOC: EDUNIT# → EDBD → ED 13:53
DX: F05 Delirium due to known physiological condition (principal); F03.90 Unspecified dementia, unspecified severity, without behavioral disturbance, psychotic disturbance, mood disturbance, and anxiety
CPT/HCPCS: 36415; 80053; 85025; 96360; 99281

== ENCOUNTER 2022-07-06 11:24 | Outpatient (CLI) | payer MEDICARE, OTHER ==
--- NOTE | 2022-07-06 15:20 | XRAY Report ---
PROCEDURE: Hip w/Pelvis 2-3V LT INDICATIONS: LEFT HIP PAIN TECHNIQUE: AP pelvis with lateral view(s) of the left hip(s). COMPARISON: 01/13/2022 FINDINGS: Bones: No fractures or dislocations. 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 N o periprosthetic lucency. Pelvic ring appears intact. Partially imaged lower lumbar and sacral verteb ral fusion hardware also appears intact as visualized. Degenerative sclerotic changes at the pubic sy mphysis. No suspicious bony lesions. Soft tissues: The visualized bowel gas pattern is normal. No suspicious soft tissue calcifications. IMPRESSION: 1. Bilateral hip prostheses intact and in anatomic position. 2. No visible pelvic fracture. 3. Interval lower lumbar and lumbosacral vertebral body fusion. Reviewed by: Josie Mallory MD on 07/06/2022 3:18 PM PST Approved by: Josie Mallory MD on 07/06/2022 3:18 PM PST Station ID: [id number]
== END 2022-07-06 11:25 | disposition home or self-care (01) ==
LOC: DI 11:24
PROVIDERS: ATTEND Internal Medicine
DX: M25.552 Pain in left hip (principal); Z96.643 Presence of artificial hip joint, bilateral